=== PATIENT | male | born 1965 | race Caucasian/White ===

== ENCOUNTER 2017-10-31 09:37 | Day surgery (SDC) | payer MEDICARE ==
[2017-10-29 10:11] VITALS: BMI 30.8
[~2017-10-31 09:37] MED LIST: LACTATED RINGERS 1,000 ML IV SCH; LIDOCAINE 1% 20 ML VIAL (10MG/ML) FOR IV START INTRADERMA PRN; MIDAZOLAM 2 MG/2 ML VIAL IV PRN
[2017-10-31 10:00] VITALS: TEMP 98.3
[2017-10-31] MEDS ORDERED: LIDOCAINE 1% 20 ML VIAL (10MG/ML) FOR IV START INTRADERMA ONE (10:06)
[2017-10-31] MEDS ORDERED: PROPOFOL 10 MG/ML 20 ML VIAL IV ONE (11:16)
[2017-10-31] MEDS ORDERED: LIDOCAINE 1% INJ 10MG/ML (20 ML MDV) ONE (11:16)
--- NOTE | 2017-10-31 11:25 | P.GSHP ---
History of Present Illness H&P Date: 10/31/17 Chief Complaint: Screening colonoscopy This is a 52-year-old male referred from Dr. Montiel. Patient presents today for screening colonoscopy. Past Medical History Past Medical History: GERD/Reflux, Hypertension Additional Past Medical History / Comment(s): Paraplegic History of Any Multi-Drug Resistant Organisms: None Reported Past Surgical History: Back Surgery, Cholecystectomy, Orthopedic Surgery Additional Past Surgical History / Comment(s): cayla shoulder surgury, COLONOSCOPY Past Anesthesia/Blood Transfusion Reactions: No Reported Reaction Additional Past Anesthesia/Blood Transfusion Reaction / Comment(s): 1984 blood transfusion-no reaction Smoking Status: Never smoker - Past Family History Father Family Medical History: Diabetes Mellitus, Hypertension Mother Family Medical History: Hypertension Medications and Allergies Home Medications Medication Instructions Recorded Confirmed Type Hydrochlorothiazide 25 mg PO DAILY 07/11/17 10/31/17 History Ibuprofen [Motrin] 200 - 400 mg PO Q6HR PRN 07/11/17 10/31/17 History Metoprolol Succinate [Toprol XL] 50 mg PO DAILY 07/11/17 10/31/17 History Cefuroxime Axetil [Ceftin] 500 mg PO BID #10 tab 07/14/17 10/31/17 Rx Multivitamin [Men's Multi-Vitamin] 1 tab PO DAILY 07/15/17 10/31/17 History HYDROcodone/APAP 5-325MG [[place] 1 tab PO Q6HR PRN #30 tab 07/16/17 10/31/17 Rx 5-325] Omeprazole 40 mg PO DAILY #30 capsule. 07/16/17 10/31/17 Rx Allergies Allergy/AdvReac Type Severity Reaction Status Date / Time sulfamethoxazole Allergy Rash/Hives Verified 10/29/17 10:07 [From Bactrim] trimethoprim [From Bactrim] Allergy Rash/Hives Verified 10/29/17 10:07 Surgical - Exam Vital Signs Temp Pulse Resp BP Pulse Ox 98.3 F 97 16 177/90 95 10/31/17 09:55 10/31/17 09:55 10/31/17 09:55 10/31/17 09:55 10/31/17 09:55 - General well developed, no distress - Eyes PERRL - ENT normal pinna - Neck no masses - Respiratory normal expansion - Cardiovascular Rhythm: regular - Abdomen Abdomen: soft - Neurologic Paraplegia Assessment and Plan Assessment: We'll perform screening colonoscopy.
[2017-10-31 11:42] VITALS: RESP 18
--- NOTE | 2017-10-31 11:42 | P.OP ---
Date of Procedure: 10/31/17 Preoperative Diagnosis: Screening colonoscopy Postoperative Diagnosis: Internal and external hemorrhoids Procedure(s) Performed: Colonoscopy Anesthesia: MAC Surgeon: Kenroy Barreto Pathology: none sent Condition: stable Disposition: PACU Description of Procedure: PROCEDURE: The patient was placed on the endoscopy table in the lateral position. Digital rectal examination was performed which revealed internal and external hemorrhoids. The prostate was symmetrical without nodules. Flexible colonoscope was then placed in the patient's anus and passed throughout the entire colon. The ileocecal valve was visualized. The cecum, ascending, transverse, descending and sigmoid colon were normal. The rectum was normal as well. There were no masses, polyps or diverticula noted in the entire colon. SUMMARY OF FINDINGS: Internal and external hemorrhoids, no evidence of colon polyps or diverticula..
[2017-10-31 11:57] VITALS: BP 155/90; PULSE 67
== END 2017-10-31 12:20 | disposition home or self-care (01) ==
LOC: ORWHC2ENDO 09:37
PROVIDERS: ATTEND Surgery
DX: Z12.11 Encounter for screening for malignant neoplasm of colon (principal); K64.4 Residual hemorrhoidal skin tags; Z86.010 Personal history of colon polyps; K64.8 Other hemorrhoids; K21.9 Gastro-esophageal reflux disease without esophagitis; I10 Essential (primary) hypertension; G82.20 Paraplegia, unspecified; Z79.2 Long term (current) use of antibiotics; Z79.899 Other long term (current) drug therapy; Z88.1 Allergy status to other antibiotic agents; Z88.2 Allergy status to sulfonamides
CPT/HCPCS: J2001; J2704; G0105; 45378

== ENCOUNTER 2019-04-21 18:00 | Observation (INO) | payer MEDICARE ==
[2019-04-21] MEDS ORDERED: SODIUM CHLORIDE 0.9% 1,000 ML IV STA (18:22)
--- NOTE | 2019-04-21 18:23 | ED ---
Male Urogenital HPI - General Chief complaint: Urogenital Stated complaint: kidney pain Time Seen by Provider: 04/21/19 18:09 Source: patient, RN notes reviewed, old records reviewed Mode of arrival: wheelchair - History of Present Illness Initial comments: This is a 54-year-old male today. This patient is today for evaluation regarding refills of his acute UTI acute and chronic UTI. Patient has a history of T10 paraplegic. Secondary trauma. Patient has not had recent urinary tract infection greater than a year. We does have multi resistance to multiple antibiotic resistance with multiple EpiPen about ALLERGIES. Patient has worsening abdominal pain, cloudy urine. Pain mildly in his lower back mostly in his anterior abdomen she will pubic area MD Complaint: dysuria (Cloudy urine) -: hour(s) Location: penis, abdomen (Suprapubic area) Radiation: none Severity: moderate Severity scale (1-10): 5 Quality: burning, dull Consistency: constant Improves with: none Worsens with: urination Reports: denies other symptoms - Related Data Home Medications Medication Instructions Recorded Confirmed Hydrochlorothiazide 25 mg PO DAILY 07/11/17 04/21/19 Ibuprofen [Motrin] 200 - 400 mg PO Q6HR PRN 07/11/17 04/21/19 Metoprolol Succinate [Toprol XL] 50 mg PO DAILY 07/11/17 04/21/19 Cholestyramine (with Sugar) 4 gm PO DAILY 04/21/19 04/21/19 [Cholestyramine Packet] Multivitamins, Thera [Multivitamin 1 tab PO DAILY 04/21/19 04/21/19 (formulary)] Psyllium Husk 100% [Metamucil 6 gm PO DAILY 04/21/19 04/21/19 Packet] Previous Rx's Medication Instructions Recorded Nitrofurantoin Monohyd/M-Cryst 100 mg PO Q12HR #14 cap 04/21/19 [Macrobid] Allergies Allergy/AdvReac Type Severity Reaction Status Date / Time acetaminophen [From Vicodin] Allergy Nausea Verified 04/21/19 19:14 sulfamethoxazole Allergy Rash/Hives Verified 04/21/19 19:14 [From Bactrim] trimethoprim [From Bactrim] Allergy Rash/Hives Verified 04/21/19 19:14 hydrocodone [From Vicodin] AdvReac Nausea Verified 04/21/19 19:14 Review of Systems ROS Statement: Those systems with pertinent positive or pertinent negative responses have been documented in the HPI. ROS Other: All systems not noted in ROS Statement are negative. Past Medical History Past Medical History: GERD/Reflux, Hypertension Additional Past Medical History / Comment(s): Paraplegic History of Any Multi-Drug Resistant Organisms: None Reported Past Surgical History: Back Surgery, Cholecystectomy, Orthopedic Surgery Additional Past Surgical History / Comment(s): cayla shoulder surgury, COLONOSCOPY Past Anesthesia/Blood Transfusion Reactions: No Reported Reaction Additional Past Anesthesia/Blood Transfusion Reaction / Comment(s): 1984 blood transfusion-no reaction Past Psychological History: Panic Disorder Smoking Status: Never smoker - Past Family History Father Family Medical History: Diabetes Mellitus, Hypertension Mother Family Medical History: Hypertension General Exam General appearance: alert, in no apparent distress Head exam: Present: atraumatic, normocephalic, normal inspection Eye exam: Present: normal appearance, PERRL, EOMI. Absent: scleral icterus, conjunctival injection, periorbital swelling ENT exam: Present: normal exam, mucous membranes moist Neck exam: Present: normal inspection. Absent: tenderness, meningismus, lymphadenopathy Respiratory exam: Present: normal lung sounds bilaterally. Absent: respiratory distress, wheezes, rales, rhonchi, stridor Cardiovascular Exam: Present: regular rate, normal rhythm, normal heart sounds. Absent: systolic murmur, diastolic murmur, rubs, gallop, clicks GI/Abdominal exam: Present: soft, normal bowel sounds. Absent: distended, tenderness, guarding, rebound, rigid Extremities exam: Present: normal inspection, full ROM, normal capillary refill. Absent: tenderness, pedal edema, joint swelling, calf tenderness Back exam: Present: normal inspection Neurological exam: Present: alert, oriented X3, CN II-XII intact Psychiatric exam: Present: normal affect, normal mood Skin exam: Present: warm, dry, intact, normal color. Absent: rash Course Vital Signs 04/21/19 04/21/19 18:05 19:36 Temperature 98.4 F 98 F Pulse Rate 84 67 Respiratory 16 18 Rate Blood Pressure 148/87 154/83 O2 Sat by Pulse 96 98 Oximetry - Reevaluation(s) Reevaluation #1: 04/21/19 18:38 Medical records reviewed Reevaluation #2: 04/21/19 19:49 Patient still having abdominal pain currently Medical Decision Making - Medical Decision Making 64 male the ER for evaluation does have positive urinary tract infection, patient will replace on outpatient antibiotics, patient to return to ER symptoms of fever worsen or bowel pain worsen or any other symptoms - Lab Data Result diagrams: 04/21/19 18:40 04/21/19 18:40 Lab Results 04/21/19 04/21/19 04/21/19 Range/Units 18:40 18:40 18:40 WBC 8.4 (3.8-10.6) k/uL RBC 5.31 (4.30-5.90) m/uL Hgb 16.2 (13.0-17.5) gm/dL Hct 47.9 (39.0-53.0) % MCV 90.2 (80.0-100.0) fL MCH 30.6 (25.0-35.0) pg MCHC 33.9 (31.0-37.0) g/dL RDW 12.9 (11.5-15.5) % Plt Count 272 (150-450) k/uL Neutrophils % 63 % Lymphocytes % 27 % Monocytes % 5 % Eosinophils % 3 % Basophils % 1 % Neutrophils # 5.2 (1.3-7.7) k/uL Lymphocytes # 2.2 (1.0-4.8) k/uL Monocytes # 0.4 (0-1.0) k/uL Eosinophils # 0.3 (0-0.7) k/uL Basophils # 0.1 (0-0.2) k/uL Sodium 138 (137-145) mmol/L Potassium 3.6 (3.5-5.1) mmol/L Chloride 99 (98-107) mmol/L Carbon Dioxide 30 (22-30) mmol/L Anion Gap 9 mmol/L BUN 13 (9-20) mg/dL Creatinine 0.91 (0.66-1.25) mg/dL Est GFR (CKD-EPI)AfAm >90 (>60 ml/min/1.73 sqM) Est GFR (CKD-EPI)NonAf >90 (>60 ml/min/1.73 sqM) Glucose 102 H (74-99) mg/dL Calcium 9.2 (8.4-10.2) mg/dL Phosphorus 3.2 (2.5-4.5) mg/dL Magnesium 2.0 (1.6-2.3) mg/dL Total Bilirubin 2.0 H (0.2-1.3) mg/dL AST 35 (17-59) U/L ALT 38 (21-72) U/L Alkaline Phosphatase 90 (38-126) U/L Total Protein 7.5 (6.3-8.2) g/dL Albumin 4.3 (3.5-5.0) g/dL Urine Color Yellow Urine Appearance Turbid (Clear) Urine pH 7.0 (5.0-8.0) Ur Specific [place] 1.017 (1.001-1.035) Urine Protein 1+ H (Negative) Urine Glucose (UA) Negative (Negative) Urine Ketones Negative (Negative) Urine Blood Trace H (Negative) Urine Nitrite Positive (Negative) Urine Bilirubin Negative (Negative) Urine Urobilinogen <2.0 (<2.0) mg/dL Ur Leukocyte Esterase Large H (Negative) Urine RBC 22 H (0-5) /hpf Urine WBC >182 H (0-5) /hpf Urine WBC Clumps Many H (None) /hpf Ur Squamous Epith Cells 8 H (0-4) /hpf Amorphous Sediment Occasional H (None) /hpf Urine Bacteria Many H (None) /hpf Disposition Clinical Impression: UTI (urinary tract infection), Paraplegia Disposition: HOME SELF-CARE Condition: Fair Instructions (If sedation given, give patient instructions): Urinary Tract Infection in Men (ED) Prescriptions: Nitrofurantoin Monohyd/M-Cryst [Macrobid] 100 mg PO Q12HR #14 cap Is patient prescribed a controlled substance at d/c from ED?: No Referrals: Guicho Krause DO [Primary Care Provider] - 1-2 days
[2019-04-21 19:03] LABS: Basophils # (A) 0.1 k/uL (0-0.2); Basophils % (A) 1 %; Eosinophils # (A) 0.3 k/uL (0-0.7); Eosinophils % (A) 3 %; HCT 47.9 % (39.0-53.0); HGB 16.2 gm/dL (13.0-17.5); Lymphocytes # (A) 2.2 k/uL (1.0-4.8); Lymphocytes % (A) 27 %; MCH 30.6 pg (25.0-35.0); MCHC 33.9 g/dL (31.0-37.0); MCV 90.2 fL (80.0-100.0); Monocytes # (A) 0.4 k/uL (0-1.0); Monocytes % (A) 5 %; Neutrophils # (A) 5.2 k/uL (1.3-7.7); Neutrophils % (A) 63 %; Platelet Count 272 k/uL (150-450); RBC 5.31 m/uL (4.30-5.90); RDW 12.9 % (11.5-15.5); WBC 8.4 k/uL (3.8-10.6)
[2019-04-21 19:07] LABS: Amorphous Sediment,Urine Occasional /hpf; Appearance,Urine Turbid (Clear); Bacteria,Urine Many /hpf; Bilirubin,Urine Negative (Negative); Blood,Urine Trace (Negative); Color,Urine Yellow; Glucose,Urine (UA) Negative (Negative); Ketones,Urine Negative (Negative); Leukocyte Esterase,Urine Large (Negative); Nitrite,Urine Positive (Negative); Protein,Urine 1+ (Negative); RBC,Urine 22 /hpf (0-5); Specific Gravity,Urine 1.017 (1.001-1.035); Squamous Epithelial Cell,Urine 8 /hpf (0-4); Urobilinogen,Urine <2.0 mg/dL (<2.0)
[2019-04-21 19:10] LABS: ALT 38 U/L (21-72); AST 35 U/L (17-59); African American GFR (CKD) >90 (>60 ml/min/1.73 sqM); Albumin 4.3 g/dL (3.5-5.0); Alkaline Phosphatase 90 U/L (38-126); Anion Gap 9 mmol/L; Blood Urea Nitrogen 13 mg/dL (9-20); Calcium 9.2 mg/dL (8.4-10.2); Carbon Dioxide 30 mmol/L (22-30); Chloride 99 mmol/L (98-107); Glucose 102 mg/dL (74-99); Phosphorus 3.2 mg/dL (2.5-4.5); Potassium 3.6 mmol/L (3.5-5.1); Sodium 138 mmol/L (137-145); Total Protein 7.5 g/dL (6.3-8.2)
[2019-04-21] MEDS ORDERED: KETOROLAC 30 MG/ML 1 ML VIAL IVP STA (19:47)
[2019-04-21] MEDS ORDERED: cefTRIAXone IN SWFI 1,000 MG/10 ML SYRINGE IVP STA (19:47)
[2019-04-21] MEDS ORDERED: NITROFURANTOIN MONOHYD/M-CRYST 100 MG CAP PO STA (19:49)
[2019-04-21] MEDS ORDERED: SODIUM CHLORIDE 0.9% 1,000 ML IV ONE (20:05)
[2019-04-21] MEDS ORDERED: MORPHINE SULFATE 4 MG/ML SYRINGE IVP STA (20:06)
--- NOTE | 2019-04-21 20:07 | ED ---
Medical Decision Making - Medical Decision Making 54 male the ER with UTI, patient states he is not want to be discharged off a couple being discharged in her going home as he has had multiple episodes of petechiae turning in the sepsis - Lab Data Result diagrams: 04/21/19 18:40 04/21/19 18:40 Lab Results 04/21/19 04/21/19 04/21/19 Range/Units 18:40 18:40 18:40 WBC 8.4 (3.8-10.6) k/uL RBC 5.31 (4.30-5.90) m/uL Hgb 16.2 (13.0-17.5) gm/dL Hct 47.9 (39.0-53.0) % MCV 90.2 (80.0-100.0) fL MCH 30.6 (25.0-35.0) pg MCHC 33.9 (31.0-37.0) g/dL RDW 12.9 (11.5-15.5) % Plt Count 272 (150-450) k/uL Neutrophils % 63 % Lymphocytes % 27 % Monocytes % 5 % Eosinophils % 3 % Basophils % 1 % Neutrophils # 5.2 (1.3-7.7) k/uL Lymphocytes # 2.2 (1.0-4.8) k/uL Monocytes # 0.4 (0-1.0) k/uL Eosinophils # 0.3 (0-0.7) k/uL Basophils # 0.1 (0-0.2) k/uL Sodium 138 (137-145) mmol/L Potassium 3.6 (3.5-5.1) mmol/L Chloride 99 (98-107) mmol/L Carbon Dioxide 30 (22-30) mmol/L Anion Gap 9 mmol/L BUN 13 (9-20) mg/dL Creatinine 0.91 (0.66-1.25) mg/dL Est GFR (CKD-EPI)AfAm >90 (>60 ml/min/1.73 sqM) Est GFR (CKD-EPI)NonAf >90 (>60 ml/min/1.73 sqM) Glucose 102 H (74-99) mg/dL Calcium 9.2 (8.4-10.2) mg/dL Phosphorus 3.2 (2.5-4.5) mg/dL Magnesium 2.0 (1.6-2.3) mg/dL Total Bilirubin 2.0 H (0.2-1.3) mg/dL AST 35 (17-59) U/L ALT 38 (21-72) U/L Alkaline Phosphatase 90 (38-126) U/L Total Protein 7.5 (6.3-8.2) g/dL Albumin 4.3 (3.5-5.0) g/dL Urine Color Yellow Urine Appearance Turbid (Clear) Urine pH 7.0 (5.0-8.0) Ur Specific [place] 1.017 (1.001-1.035) Urine Protein 1+ H (Negative) Urine Glucose (UA) Negative (Negative) Urine Ketones Negative (Negative) Urine Blood Trace H (Negative) Urine Nitrite Positive (Negative) Urine Bilirubin Negative (Negative) Urine Urobilinogen <2.0 (<2.0) mg/dL Ur Leukocyte Esterase Large H (Negative) Urine RBC 22 H (0-5) /hpf Urine WBC >182 H (0-5) /hpf Urine WBC Clumps Many H (None) /hpf Ur Squamous Epith Cells 8 H (0-4) /hpf Amorphous Sediment Occasional H (None) /hpf Urine Bacteria Many H (None) /hpf Disposition Clinical Impression: UTI (urinary tract infection), Paraplegia Disposition: ADMITTED IP TO THIS HOSP Condition: Fair Instructions (If sedation given, give patient instructions): Urinary Tract Infection in Men (ED) Prescriptions: Nitrofurantoin Monohyd/M-Cryst [Macrobid] 100 mg PO Q12HR #14 cap Referrals: Guicho Krause DO [Primary Care Provider] - 1-2 days
[2019-04-22] MEDS: MORPHINE SULFATE 4 MG/ML SYRINGE IVP PRN ×2 (02:52→07:06)
[2019-04-22] MEDS: HYDROmorphone 0.5 MG/0.5 ML SYRINGE IVP PRN ×3 (13:09→21:33)
[2019-04-22] MEDS ORDERED: IBUPROFEN 400 MG TAB PO PRN (14:08)
[2019-04-22] MEDS ORDERED: TEMAZEPAM 15 MG CAP PO PRN (14:09)
[2019-04-22] MEDS: HEPARIN SODIUM,PORCINE 5,000 UNIT/ML 1 ML VIAL SQ SCH ×2 (14:23→21:33)
[2019-04-22] MEDS: PSYLLIUM HUSK 100% 6 GM PACKET PO SCH (14:23)
[2019-04-22] MEDS: MULTIVITAMINS, THERA 1 EACH TAB PO SCH (14:23)
[2019-04-22] MEDS: CHOLESTYRAMINE (WITH SUGAR) 4 GM PACKET PO SCH (14:23)
[2019-04-22] MEDS: METOPROLOL SUCCINATE (ER) 50 MG TAB.ER.24H PO SCH (14:23)
[2019-04-22] MEDS: HYDROCHLOROTHIAZIDE 25 MG TAB PO SCH (14:23)
--- NOTE | 2019-04-22 15:13 | HP ---
HISTORY AND PHYSICAL DATE OF SERVICE: 04/22/2019 CHIEF COMPLAINT: UTI. HISTORY OF PRESENT ILLNESS: This is a 54-year-old gentleman with a past medical history of T10 paraplegia secondary to trauma, history of recurrent UTI, GERD, hypertension, history of cholecystectomy, history of panic disorder, being followed by Dr. Krause in the outpatient setting. Admitted with features of UTI. The patient is complaining of some back pain also, abdominal pain, and the urine was cloudy. Patient came to [facility], admitted for further evaluation and treatment. There is no history of fever or rigors. No history of headache, loss of conscious or seizures at this time. PAST MEDICAL HISTORY: History of GERD, hypertension, paraplegia, history of cholecystectomy, history of panic disorder. MEDICATIONS: Prior to admission include home medications are: 1. Psyllium 66 g daily. 2. Multivitamins 1 p.o. daily. 3. Toprol-XL 50 mg p.o. daily. 4. Motrin 200-400 mg q.6 p.r.n. 5. Hydrochlorothiazide 25 mg b.i.d. 6. Cholestyramine 4 g daily. 7. Macrobid 100 mg p.o. b.i.d. ALLERGIES: VICODIN and BACTRIM. FAMILY HISTORY: History of diabetes and hypertension in the family. SOCIAL HISTORY: History of occasional alcohol, no smoking. REVIEW OF SYSTEMS: ENT: No diminished hearing or diminished vision. CARDIOVASCULAR: No angina. RESPIRATION: No cough, hemoptysis. GI: No nausea and vomiting. : No dysuria. NERVOUS SYSTEM: No numbness or weakness. ALLERGY/IMMUNOLOGY: No asthma or hayfever. MUSCULOSKELETAL: As mentioned earlier. HEMATOLOGY/ONCOLOGY: No history of anemia. ENDOCRINE: No history of diabetes or hypothyroid. CONSTITUTIONAL: As mentioned earlier. DERMATOLOGY: Negative. PSYCHIATRY: As mentioned earlier. PHYSICAL EXAMINATION: Patient is alert and oriented x3. Pulse 68, blood pressure 160/76, respiration 20, temperature 97.4, pulse ox 98% on room air. HEENT: Conjunctivae normal. NECK: No jugular venous distension. CARDIOVASCULAR SYSTEM: S1, S2, muffled. RESPIRATION: Breath sounds diminished at the bases, no rhonchi, no crackles. ABDOMEN: Soft, nontender. Some discomfort noted. No mass palpable. Condom catheter present. NERVOUS SYSTEM: As mentioned earlier, T10 paraplegia with paraparesis with global weakness and wasting present. SKIN: No ulcer, rash, bleeding. JOINTS: No active arthropathy. LYMPHATICS: No lymph node enlargement in the neck or axillae. LABS: CBC within normal limits. Sodium 130, potassium 3.3. UA noted. ASSESSMENT: 1. Acute urinary tract infection present on admission. 2. Acute urinary tract infection related to paraplegia. 3. On condom catheter. 4. History of recurrent urinary tract infections. 5. D10 paraplegia history. 6. Hypertension. 7. Gastroesophageal reflux disease. 8. History of cholecystectomy. 9. History of back surgery. 10.History of panic disorder. 11.Obesity with body mass index of 33. RECOMMENDATION: This 54-year-old gentleman who presented with multiple complex medical issues, will monitor the patient closely, continue with the current management and symptomatic treatment. Otherwise, at this time continue broad-spectrum IV antibiotics. Patient had history of resistant UTI. Will obtain the urine culture, blood cultures, Infectious Disease evaluation. Guarded prognosis because of multiple complex medical issues. Further recommendations to follow. A copy of this will be forwarded to Dr. Krause who is the primary physician. MMODL / IJN: [id number] /
--- NOTE | 2019-04-22 23:18 | P.CONS ---
History of Present Illness - Reason for Consult Consult date: 04/22/19 Urinary tract infection Requesting physician: Gilbert Majano - Chief Complaint Super pubic pain cloudy urine x few days - History of Present Illness Patient is a 54-year-old male with past medical history significant for traumatic T10 level spinal paraplegia the patient during his current catheter as he did have incontinence of [facility] chief complaints of not feeling well generalized weakness did have some lower abdominal discomfort and cloudy urine with the symptom has been going on for last few days before he presented to the hospital patient did have some chills but denies high-grade fever denies any headache or uri symptoms no chest pain shortness of breath or cough no nausea no vomiting no problem pain and no diarrhea patient was evaluated by the physician on the patient has been afebrile white count was normal patient did have a positive ua he was started on rocephin has been admitted to the hospital infectious disease was consulted for further recommendation regarding antibiotic therapy Review of Systems Positive point has been mentioned in the HPI rest of the systems are negative Past Medical History Past Medical History: GERD/Reflux, Hypertension Additional Past Medical History / Comment(s): Paraplegic History of Any Multi-Drug Resistant Organisms: None Reported Past Surgical History: Back Surgery, Cholecystectomy, Orthopedic Surgery Additional Past Surgical History / Comment(s): cayla shoulder surgury, COLONOSCOPY,, [place] removal Past Anesthesia/Blood Transfusion Reactions: No Reported Reaction Additional Past Anesthesia/Blood Transfusion Reaction / Comm: 1984 blood cline sfusion-no reaction Past Psychological History: Panic Disorder Additional Psychological History / Comment(s): lives with spouse Smoking Status: Never smoker Past Alcohol Use History: Rare Past Drug Use History: None Reported - Past Family History Father Family Medical History: Diabetes Mellitus, Hypertension Mother Family Medical History: Hypertension Medications and Allergies Home Medications Medication Instructions Recorded Confirmed Type Hydrochlorothiazide 25 mg PO DAILY 07/11/17 04/21/19 History Ibuprofen [Motrin] 200 - 400 mg PO Q6HR PRN 07/11/17 04/21/19 History Metoprolol Succinate [Toprol XL] 50 mg PO DAILY 07/11/17 04/21/19 History Cholestyramine (with Sugar) 4 gm PO DAILY 04/21/19 04/21/19 History [Cholestyramine Packet] Multivitamins, Thera [Multivitamin 1 tab PO DAILY 04/21/19 04/21/19 History (formulary)] Nitrofurantoin Monohyd/M-Cryst 100 mg PO Q12HR #14 cap 04/21/19 Rx [Macrobid] Psyllium Husk 100% [Metamucil 6 gm PO DAILY 04/21/19 04/21/19 History Packet] Allergies Allergy/AdvReac Type Severity Reaction Status Date / Time acetaminophen [From Vicodin] Allergy Nausea Verified 04/21/19 19:14 sulfamethoxazole Allergy Rash/Hives Verified 04/21/19 19:14 [From Bactrim] trimethoprim [From Bactrim] Allergy Rash/Hives Verified 04/21/19 19:14 hydrocodone [From Vicodin] AdvReac Nausea Verified 04/21/19 19:14 Physical Exam Vitals: Vital Signs Temp Pulse Pulse Resp BP BP BP 04/22/19 04:53 97.4 F L 68 20 164/76 04/21/19 22:00 98.4 F 74 18 164/91 04/21/19 19:36 98 F 67 18 154/83 04/21/19 18:05 98.4 F 84 16 148/87 Pulse Ox 04/22/19 04:53 99 04/21/19 22:00 96 04/21/19 19:36 98 04/21/19 18:05 96 Intake and Output 04/21/19 04/22/19 04/22/19 22:59 06:59 14:59 Intake Total 200 Output Total 600 Balance -400 Intake: Oral 200 Output: Urine 600 Other: Voiding Method Indwelling Catheter # Bowel Movements 0 Weight 113.398 kg GENERAL DESCRIPTION: Middle-aged male lying in bed, no distress. No tachypnea or accessory muscle of respiration use. HEENT: Shows Pallor , no scleral icterus. Oral mucous membrane is dry. No pharyngeal erythema or thrush NECK: Trachea central, no thyromegaly. LUNGS: Unlabored breathing. Clear to auscultation anteriorly. No wheeze or crackle. HEART: S1, S2, regular rate and rhythm. No loud murmur ABDOMEN: Soft, no tenderness , guarding or rigidity, no organomegaly EXTREMITIES: No edema of feet. SKIN: No rash, no masses palpable. NEUROLOGICAL: The patient is awake, alert, oriented x3, mood and affect normal. Results CBC & Chem 7: 04/21/19 18:40 04/21/19 18:40 Labs: Abnormal Lab Results - Last 24 Hours (Table) 04/21/19 04/21/19 Range/Units 18:40 18:40 Glucose 102 H (74-99) mg/dL Total Bilirubin 2.0 H (0.2-1.3) mg/dL Urine Protein 1+ H (Negative) Urine Blood Trace H (Negative) Ur Leukocyte Esterase Large H (Negative) Urine RBC 22 H (0-5) /hpf Urine WBC >182 H (0-5) /hpf Urine WBC Clumps Many H (None) /hpf Ur Squamous Epith Cells 8 H (0-4) /hpf Amorphous Sediment Occasional H (None) /hpf Urine Bacteria Many H (None) /hpf Microbiology - Last 24 Hours (Table) 04/21/19 18:40 Urine Culture - Preliminary Urine,Voided Assessment and Plan Assessment: 1-patient presented to hospital with generalized weakness suprapubic discomfort cloudy urine and did have a positive UA likely representing symptomatic urinary tract infection likely from enteric gram-negative pathogen with no recent antibiotic exposure possibly sensitive and some such as E. coli Plan: 1-Rocephin 1 g IV piggyback daily 2-gentle IV fluid We will follow on clinical condition and cultures to further adjust medication if needed Thank you for this consultation will follow this patient with you Time with Patient: Greater than 30
[2019-04-23] MEDS: HYDROmorphone 0.5 MG/0.5 ML SYRINGE IVP PRN ×3 (01:58→23:33)
[2019-04-23] MEDS: HEPARIN SODIUM,PORCINE 5,000 UNIT/ML 1 ML VIAL SQ SCH ×2 (06:54→21:03)
[2019-04-23] MEDS: CHOLESTYRAMINE (WITH SUGAR) 4 GM PACKET PO SCH (06:54)
[2019-04-23] MEDS: HYDROCHLOROTHIAZIDE 25 MG TAB PO SCH (07:37)
[2019-04-23] MEDS: METOPROLOL SUCCINATE (ER) 50 MG TAB.ER.24H PO SCH (07:37)
[2019-04-23] MEDS: PSYLLIUM HUSK 100% 6 GM PACKET PO SCH (07:37)
[2019-04-23] MEDS: PANTOPRAZOLE 40 MG TABLET PO SCH (07:38)
[2019-04-23] MEDS: MULTIVITAMINS, THERA 1 EACH TAB PO SCH (07:38)
[2019-04-23 09:23] LABS: Basophils # (A) 0.1 k/uL (0-0.2); Basophils % (A) 1 %; Eosinophils # (A) 0.4 k/uL (0-0.7); Eosinophils % (A) 6 %; HCT 43.6 % (39.0-53.0); Lymphocytes # (A) 1.6 k/uL (1.0-4.8); Lymphocytes % (A) 22 %; MCH 28.8 pg (25.0-35.0); MCHC 32.1 g/dL (31.0-37.0); MCV 89.7 fL (80.0-100.0); Mean Platelet Volume 5.7; Monocytes # (A) 0.3 k/uL (0-1.0); Monocytes % (A) 4 %; Neutrophils # (A) 4.8 k/uL (1.3-7.7); Neutrophils % (A) 66 %; Platelet Count 226 k/uL (150-450); RBC 4.86 m/uL (4.30-5.90); RDW 13.1 % (11.5-15.5); WBC 7.3 k/uL (3.8-10.6)
[2019-04-23 09:28] LABS: African American GFR (CKD) >90 (>60 ml/min/1.73 sqM); Anion Gap 8 mmol/L; Blood Urea Nitrogen 11 mg/dL (9-20); Calcium 8.6 mg/dL (8.4-10.2); Carbon Dioxide 30 mmol/L (22-30); Chloride 101 mmol/L (98-107); Glucose 107 mg/dL (74-99); Sodium 139 mmol/L (137-145)
[2019-04-23 09:33] LABS: Potassium 4.4 mmol/L (3.5-5.1)
--- NOTE | 2019-04-23 23:48 | PN ---
PROGRESS NOTE DATE OF SERVICE: 04/23/2019. REASON FOR FOLLOWUP: Urinary tract infection. INTERVAL HISTORY: The patient is currently afebrile. The patient complaining of lower abdominal pain, seems to have improved. Did have slight nausea but no vomiting. No chest pain, shortness of breath or cough. PHYSICAL EXAMINATION: Blood pressure 155/82 with a pulse of 62, temperature 98. He is 98% on room air. General description is a middle-aged male lying in bed in no distress. Respiratory system: Unlabored breathing. Clear to auscultation anteriorly. Heart S1, S2. Regular rate and rhythm. Abdomen soft, no tenderness. LABS: BUN of 11, creatinine 0.86. Hemoglobin is 14, white count 7.3. Urine culture currently pending. Blood culture negative. DIAGNOSTIC IMPRESSION AND PLAN: Patient admitted to the hospital with lower abdominal pain, positive UA and concern for urinary tract infection. Currently covered with Rocephin and did have improvement, to continue while waiting for the culture to finalize. Continue supportive care. MMODL / IJN: [id number] /
[2019-04-24 07:53] LABS: African American GFR (CKD) >90 (>60 ml/min/1.73 sqM); Anion Gap 9 mmol/L; Blood Urea Nitrogen 10 mg/dL (9-20); Calcium 9.3 mg/dL (8.4-10.2); Carbon Dioxide 30 mmol/L (22-30); Chloride 100 mmol/L (98-107); Glucose 120 mg/dL (74-99); Potassium 3.9 mmol/L (3.5-5.1); Sodium 139 mmol/L (137-145)
[2019-04-24 08:04] LABS: Basophils # (A) 0.1 k/uL (0-0.2); Basophils % (A) 1 %; Eosinophils # (A) 0.5 k/uL (0-0.7); Eosinophils % (A) 6 %; HCT 43.7 % (39.0-53.0); HGB 15.3 gm/dL (13.0-17.5); Lymphocytes # (A) 2.2 k/uL (1.0-4.8); Lymphocytes % (A) 28 %; MCH 30.8 pg (25.0-35.0); MCV 88.1 fL (80.0-100.0); Mean Platelet Volume 5.3; Monocytes # (A) 0.5 k/uL (0-1.0); Monocytes % (A) 6 %; Neutrophils # (A) 4.6 k/uL (1.3-7.7); Neutrophils % (A) 58 %; Platelet Count 252 k/uL (150-450); RBC 4.96 m/uL (4.30-5.90); RDW 12.9 % (11.5-15.5)
[2019-04-24] MEDS: CHOLESTYRAMINE (WITH SUGAR) 4 GM PACKET PO SCH (08:57)
[2019-04-24] MEDS: METOPROLOL SUCCINATE (ER) 50 MG TAB.ER.24H PO SCH (08:57)
[2019-04-24] MEDS: HYDROCHLOROTHIAZIDE 25 MG TAB PO SCH (08:57)
[2019-04-24] MEDS: PANTOPRAZOLE 40 MG TABLET PO SCH (08:57)
[2019-04-24] MEDS: MULTIVITAMINS, THERA 1 EACH TAB PO SCH (08:58)
[2019-04-24] MEDS: HEPARIN SODIUM,PORCINE 5,000 UNIT/ML 1 ML VIAL SQ SCH (08:58)
[2019-04-24] MEDS: PSYLLIUM HUSK 100% 6 GM PACKET PO SCH (08:58)
[2019-04-24 13:49] VITALS: BP 163/104; PULSE 63; RESP 16; TEMP 98.3
--- NOTE | 2019-04-24 16:06 | P.PN ---
Subjective Progress Note Date: 04/23/19 Principal diagnosis: Acute urinary tract infection Patient is a 54-year-old male with a known history of T10 paraplegia secondary to trauma, history of recurrent UTI, GERD, hypertension, history of cholecystectomy, panic disorder who is being followed by Dr. Montenegro as an outpatient was admitted to hospital secondary to UTI. Patient is currently being continued on antibiotics in the form of ceftriaxone. ID has seen the patient. 04 23 2019 Patient denied any complaints of chest pain or shortness of breath. No fever no chills. Still complaining of lower abdominal pain. Urine culture showed no growth so far. Currently being continued on antibiotics in the form of ce ftriaxone. Awaiting final culture report and antibiotics recommendations. No nausea vomiting or diarrhea. No dizziness or lightheadedness. Current medications reviewed. Objective - Vital Signs Vital signs: Vital Signs Temp 96.4 F L 04/23/19 14:15 Pulse 64 04/23/19 14:15 Resp 14 04/23/19 14:15 BP 158/78 04/23/19 14:15 Pulse Ox 96 04/23/19 14:15 Intake & Output 04/23/19 04/23/19 04/24/19 06:59 18:59 06:59 Intake Total 540 Output Total 750 Balance -750 540 Intake: Oral 540 Output: Urine 750 Other: # Voids 1,300 # Bowel Movements 0 - Exam PHYSICAL EXAMINATION: Patient is lying in the bed comfortably, no acute distress, awake alert and oriented.. HEENT: Normocephalic. Neck is supple. Pupils reactive. Nostrils clear. Oral cavity is moist. Ears reveal no drainage. Neck reveals no JVD, carotid bruits, or thyromegaly. CHEST EXAMINATION: Trachea is central. Symmetrical expansion. Bibasilar diminished air entry. Lung cherry clear to auscultation and percussion. CARDIAC: Normal S1, S2 with no gallops. No murmurs ABDOMEN: Soft. Mild lower abdominal tenderness. No guarding no rigidity. Bowel sounds normal. No organomegaly. No abdominal bruits. Extremities: reveal no edema. No clubbing or cyanosis Neurologically awake, alert, oriented x3. Patient does have paraplegia Skin: No rash or skin lesions. Psychiatric: Coperative. Nonsuicidal Musculoskeletal: No joint swelling or deformity. \ - Labs CBC & Chem 7: 04/24/19 07:18 04/24/19 07:18 Labs: Abnormal Lab Results - Last 24 Hours (Table) 04/23/19 Range/Units 08:35 Glucose 107 H (74-99) mg/dL Microbiology - Last 24 Hours (Table) 04/21/19 18:40 Blood Culture - Preliminary Blood No Growth after 24 hours Assessment and Plan Assessment: Acute urinary tract infection Acute urinary tract infection related to paraplegia. Patient is able to void spontaneously. Recurrent urinary tract infections T 10 paraplegia history Hypertension GERD History of cholecystectomy History of back surgery Anxiety/panic disorder Obesity with BMI 33 Plan: Patient will be continued on antibiotics in the form of ceftriaxone. Follow up final culture reports. Continue the pain management and symptomatic treatment. ID is on board. Cultures have been negative so far. Further recommendations based on the clinical course. Prognosis is guarded with multiple medical problems and comorbid conditions. Time with Patient: Greater than 30
--- NOTE | 2019-04-24 17:04 | PN ---
PROGRESS NOTE DATE OF SERVICE: 04/24/2019. REASON FOR FOLLOWUP: Urinary tract infection. INTERVAL HISTORY: The patient is currently afebrile. Patient has been breathing comfortably. Denies having any chest pain. No cough. No nausea, no vomiting. No abdominal pain. No diarrhea. PHYSICAL EXAMINATION: Blood pressure 163/100 with a pulse of 63, temperature 98.3. He is 99% on room air. General description is a middle-aged male lying in bed in no distress. Respiratory system: Unlabored breathing. Clear to auscultation anteriorly. Heart S1, S2. Regular rate and rhythm. Abdomen soft, no tenderness. LABS: Culture have been negative so far. DIAGNOSTIC IMPRESSION AND PLAN: Patient admitted to the hospital with urinary symptoms, suprapubic pain positive with concern for urinary tract infection. Culture has been negative so far. Plan is to finish therapy with a short course of oral Ceftin. Prescription sent to the pharmacy. Close outpatient followup. MMODL / SHARONAN: [id number] / MTDD
--- NOTE | 2019-05-04 21:40 | P.DS ---
Providers Date of admission: 04/21/19 20:07 Expected date of discharge: 04/24/19 Attending physician: Gilbert Majano Consults: 04/22/19 14:08 Consult Physician Routine Consulting Provider: Alexei Anderson Consult Reason/Comments: uti Do you want consulting provider notified?: Yes Primary care physician: Guicho Krause Hospital Course: Discharge diagnosis Acute urinary tract infection Acute urinary tract infection related to paraplegia. Patient is able to void spontaneously. Recurrent urinary tract infections T 10 paraplegia history Hypertension GERD History of cholecystectomy History of back surgery Anxiety/panic disorder Obesity with BMI 33 Hospital course Patient is a 54-year-old male with a known history of T10 paraplegia secondary to trauma, history of recurrent UTI, GERD, hypertension, history of cholecystectomy, panic disorder who is being followed by Dr. Montenegro as an outpatient was admitted to hospital secondary to UTI. Patient is currently being continued on antibiotics in the form of ceftriaxone. ID has seen the patient. 04 23 2019 Patient denied any complaints of chest pain or shortness of breath. No fever no chills. Still complaining of lower abdominal pain. Urine culture showed no growth so far. Currently being continued on antibiotics in the form of ceftriaxone. Awaiting final culture report and antibiotics recommendations. No nausea vomiting or diarrhea. No dizziness or lightheadedness. 04/24/2019 Patient denied any complaints of chest pain or shortness of breath today. Able to ambulate. Patient will be continued on outpatient antibiotic course. No nausea vomiting or abdominal pain. Patient says that he feels that her. Patient has been afebrile. No other acute overnight issues. Urine culture showed no growth so far PHYSICAL EXAMINATION: Patient is lying in the bed comfortably, no acute distress, awake alert and oriented.. HEENT: Normocephalic. Neck is supple. Pupils reactive. Nostrils clear. Oral cavity is moist. Ears reveal no drainage. Neck reveals no JVD, carotid bruits, or thyromegaly. CHEST EXAMINATION: Trachea is central. Symmetrical expansion. Bibasilar diminished air entry. Lung cherry clear to auscultation and percussion. CARDIAC: Normal S1, S2 with no gallops. No murmurs ABDOMEN: Soft. Mild lower abdominal tenderness. No guarding no rigidity. Bowel sounds normal. No organomegaly. No abdominal bruits. Extremities: reveal no edema. No clubbing or cyanosis Neurologically awake, alert, oriented x3. Patient does have paraplegia Skin: No rash or skin lesions. Psychiatric: Coperative. Nonsuicidal Musculoskeletal: No joint swelling or deformity. \ Discharge vitals reviewed. Patient Condition at Discharge: Fair Plan - Discharge Summary Discharge Rx Participant: Yes New Discharge Prescriptions: New RX: Nitrofurantoin Monohyd/M-Cryst [Macrobid] 100 mg PO Q12HR #14 cap Continue RX: Ibuprofen [Motrin] 200 - 400 mg PO Q6HR PRN PRN Reason: Pain RX: Metoprolol Succinate [Toprol XL] 50 mg PO DAILY RX: Hydrochlorothiazide 25 mg PO DAILY RX: Psyllium Husk 100% [Metamucil Packet] 6 gm PO DAILY RX: Multivitamins, Thera [Multivitamin (formulary)] 1 tab PO DAILY RX: Cholestyramine (with Sugar) [Cholestyramine Packet] 4 gm PO DAILY Discharge Medication List RX: Hydrochlorothiazide 25 mg PO DAILY 07/11/17 [History] RX: Ibuprofen [Motrin] 200 - 400 mg PO Q6HR PRN 07/11/17 [History] RX: Metoprolol Succinate [Toprol XL] 50 mg PO DAILY 07/11/17 [History] RX: Cholestyramine (with Sugar) [Cholestyramine Packet] 4 gm PO DAILY 04/21/19 [History] RX: Multivitamins, Thera [Multivitamin (formulary)] 1 tab PO DAILY 04/21/19 [History] RX: Nitrofurantoin Monohyd/M-Cryst [Macrobid] 100 mg PO Q12HR #14 cap 04/21/19 [Rx] RX: Psyllium Husk 100% [Metamucil Packet] 6 gm PO DAILY 04/21/19 [History] Follow up Appointment(s)/Referral(s): Guicho Krause DO [Primary Care Provider] - 1-2 days Patient Instructions/Handouts: Urinary Tract Infection in Men (ED) Discharge Disposition: HOME SELF-CARE
== END 2019-04-24 16:33 | disposition home or self-care (01) ==
LOC: EC 18:00 → 4MS4W 20:07
PROVIDERS: ADMIT Hospitalist; ATTEND Hospitalist
DX: N39.0 Urinary tract infection, site not specified (principal); G82.20 Paraplegia, unspecified; S24.103S Unspecified injury at T7-T10 level of thoracic spinal cord, sequela; Z16.24 Resistance to multiple antibiotics; K21.9 Gastro-esophageal reflux disease without esophagitis; I10 Essential (primary) hypertension; F41.0 Panic disorder [episodic paroxysmal anxiety]; Z68.33 Body mass index [BMI] 33.0-33.9, adult; E66.9 Obesity, unspecified; F41.9 Anxiety disorder, unspecified; Z79.899 Other long term (current) drug therapy; Z88.1 Allergy status to other antibiotic agents; Z88.2 Allergy status to sulfonamides; Z88.5 Allergy status to narcotic agent; Z88.6 Allergy status to analgesic agent; Z90.49 Acquired absence of other specified parts of digestive tract; Z87.440 Personal history of urinary (tract) infections; Z83.3 Family history of diabetes mellitus; Z82.49 Family history of ischemic heart disease and other diseases of the circulatory system
CPT/HCPCS: 96376 ×3; 96361 ×3; 96365; 96366 ×2; 96372 ×2; 96375 ×2; 99285; 36415; 80053; 80048 ×2; 83735; 84100; 85025 ×3; 81001; 87040; 87086; G0378 ×4; J2270 ×2; J1644 ×2; J0696 ×4; J1885; J1170 ×2

== ENCOUNTER 2019-08-06 23:42 | Observation (INO) | payer MEDICARE ==
[2019-08-07] MEDS ORDERED: HYDROmorphone 0.5 MG/0.5 ML SYRINGE IVP STA ×2 (00:12→02:34)
[2019-08-07 00:21] LABS: Basophils # (A) 0.1 k/uL (0-0.2); Basophils % (A) 1 %; Eosinophils # (A) 0.6 k/uL (0-0.7); Eosinophils % (A) 5 %; Lymphocytes # (A) 2.1 k/uL (1.0-4.8); Lymphocytes % (A) 19 %; MCH 30.1 pg (25.0-35.0); MCHC 34.7 g/dL (31.0-37.0); MCV 86.6 fL (80.0-100.0); Mean Platelet Volume 6.8; Monocytes # (A) 0.6 k/uL (0-1.0); Monocytes % (A) 5 %; Neutrophils # (A) 7.6 k/uL (1.3-7.7); Neutrophils % (A) 68 %; Platelet Count 310 k/uL (150-450); RBC 5.31 m/uL (4.30-5.90); RDW 12.7 % (11.5-15.5); WBC 11.2 k/uL (3.8-10.6)
--- NOTE | 2019-08-07 00:25 | CT ---
EXAMINATION TYPE: CT brain massimoine wo con DATE OF EXAM: 08/07/2019 COMPARISON: None HISTORY: Fall CT DLP: 1722.10 mGycm Automated exposure control for dose reduction was used. Ventricles have normal size. There is no mass effect nor midline shift. There is no sign of intracran ial hemorrhage. Calvarium is intact. There is some straightening of the cervical spine. There is anterior spurring from C4 to C7 with larg e osteophytes. Posterior elements are intact. There is mild hypertrophic facet arthropathy. Skull bas e is intact. IMPRESSION: Negative CT scan of the brain. Spondylotic changes in the cervical spine. No fracture. No evidence of acute traumatic injury.
[2019-08-07 00:28] LABS: ALT 26 U/L (4-49); AST 37 U/L (17-59); African American GFR (CKD) >90 (>60 ml/min/1.73 sqM); Alkaline Phosphatase 87 U/L (38-126); Anion Gap 10 mmol/L; Blood Urea Nitrogen 15 mg/dL (9-20); Calcium 9.3 mg/dL (8.4-10.2); Carbon Dioxide 26 mmol/L (22-30); Chloride 100 mmol/L (98-107); Glucose 150 mg/dL (74-99); Non-African American GFR(CKD) >90 (>60 ml/min/1.73 sqM); Potassium 3.4 mmol/L (3.5-5.1); Sodium 136 mmol/L (137-145); Total Bilirubin 0.8 mg/dL (0.2-1.3); Total Protein 7.2 g/dL (6.3-8.2)
--- NOTE | 2019-08-07 00:33 | XR ---
EXAMINATION TYPE: XR pelvis AP view DATE OF EXAM: 08/07/2019 COMPARISON: 12/16/2012 HISTORY: Fall. Pain. TECHNIQUE: Single view FINDINGS: Pelvic ring is intact. There is narrowing of hip joint spaces. There is bilateral acetabula r spurring. I see no fracture. The sacroiliac joints show some osteosclerosis in joint space narrowin g. IMPRESSION: There is evidence of sacroiliitis. No fracture seen. Osteoarthritic changes in the hip noelle ints. Hip joint space narrowing has progressed compared to old exam. Sacroiliac joints unchanged.
--- NOTE | 2019-08-07 00:35 | XR ---
EXAMINATION TYPE: XR humerus LT DATE OF EXAM: 08/07/2019 COMPARISON: NONE HISTORY: Fall. Pain. TECHNIQUE: 3 views of the left humerus FINDINGS: I see no fracture nor dislocation. Shoulder joint and elbow joint appear anatomic. IMPRESSION: Negative left humerus exam. No fracture.
--- NOTE | 2019-08-07 00:39 | XR ---
EXAMINATION TYPE: XR chest 1V DATE OF EXAM: 08/07/2019 COMPARISON: July 15, 2017 History chest pain. FINDINGS: Heart and mediastinum are normal. Lungs are clear. Diaphragm is normal. Bony thorax appears intact. T here are chest leads. IMPRESSION: Normal chest.
[2019-08-07] MEDS ORDERED: HYDROmorphone 1 MG/ML 1 ML SYRINGE IVP STA (01:16)
[2019-08-07] MEDS ORDERED: DIPH,PERTUS(ACELL)TETVAC-LF 0.5 ML VIAL IM ONE (02:34)
[2019-08-07 04:22] LABS: Appearance,Urine Cloudy (Clear); Bacteria,Urine Occasional /hpf; Bilirubin,Urine Negative (Negative); Blood,Urine Negative (Negative); Color,Urine Yellow; Glucose,Urine (UA) Negative (Negative); Ketones,Urine Negative (Negative); Leukocyte Esterase,Urine Moderate (Negative); Mucus,Urine Rare /hpf; Nitrite,Urine Positive (Negative); Protein,Urine Negative (Negative); RBC,Urine <1 /hpf (0-5); Specific Gravity,Urine 1.011 (1.001-1.035); Urobilinogen,Urine <2.0 mg/dL (<2.0); WBC,Urine 29 /hpf (0-5)
[2019-08-07] MEDS ORDERED: ONDANSETRON 4 MG/2 ML VIAL IVP PRN (06:42)
[2019-08-07] MEDS ORDERED: NALOXONE 0.4 MG/ML 1 ML VIAL IV PRN (06:42)
[2019-08-07] MEDS ORDERED: IBUPROFEN 400 MG TAB PO PRN (06:44)
[2019-08-07] MEDS: HYDROmorphone 0.5 MG/0.5 ML SYRINGE IVP PRN ×4 (06:56→23:05)
[2019-08-07] MEDS: SODIUM CHLORIDE 0.9% 1,000 ML IV SCH (06:58)
--- NOTE | 2019-08-07 07:08 | ED ---
Fall HPI - General Chief Complaint: Fall Stated Complaint: Fall Time Seen by Provider: 08/06/19 23:56 Source: patient, EMS Mode of arrival: EMS Limitations: no limitations - History of Present Illness Initial Comments: This patient is a 54-year-old man brought by ambulance to be evaluated for a fall. The patient states that he had been passing by his wood stove and his clothing caught on it and pulled him backwards he fell backwards in his wheelchair and struck his head against the metal surface of the stove. The patient did have brief loss of consciousness. EMS was called and brings patient here for evaluation. He is complaining of pain in the occipital area. MD Complaint: fall -: minutes(s) Fall From: wheelchair When Fall Occurred: just prior to arrival Fall Witnessed: no Place Fall Occurred: home Loss of Consciousness: yes Prolonged Down Time?: no Symptoms Prior to Fall: none Location: head, neck Severity: moderate Quality: sharp Context: tripped/slipped Associated Symptoms: headache - Related Data Home Medications Medication Instructions Recorded Confirmed Hydrochlorothiazide 25 mg PO DAILY 07/11/17 08/07/19 Ibuprofen [Motrin] 200 - 400 mg PO Q6HR PRN 07/11/17 08/07/19 Metoprolol Succinate [Toprol XL] 50 mg PO DAILY 07/11/17 08/07/19 Cholestyramine (with Sugar) 4 gm PO DAILY 04/21/19 08/07/19 [Cholestyramine Packet] Psyllium Husk 100% [Metamucil 6 gm PO DAILY 04/21/19 08/07/19 Packet] Pseudoephedrine HCl [Sudafed] 30 mg PO Q4HR PRN 08/07/19 08/07/19 Allergies Allergy/AdvReac Type Severity Reaction Status Date / Time sulfamethoxazole Allergy Rash/Hives Verified 08/07/19 07:23 [From Bactrim] trimethoprim [From Bactrim] Allergy Rash/Hives Verified 08/07/19 07:23 acetaminophen [From Vicodin] AdvReac Nausea Verified 08/07/19 07:23 hydrocodone [From Vicodin] AdvReac Nausea Verified 08/07/19 07:23 Review of Systems ROS Statement: Those systems with pertinent positive or pertinent negative responses have been documented in the HPI. ROS Other: All systems not noted in ROS Statement are negative. Eyes: Denies: eye pain, vision change ENT: Denies: throat pain Respiratory: Denies: cough, dyspnea Cardiovascular: Denies: chest pain, palpitations Gastrointestinal: Reports: constipation. Denies: abdominal pain, vomiting, diarrhea Genitourinary: Denies: dysuria, hematuria Musculoskeletal: Denies: back pain Skin: Denies: rash Neurological: Reports: headache. Denies: weakness, numbness Past Medical History Past Medical History: GERD/Reflux, Hypertension Additional Past Medical History / Comment(s): Paraplegic History of Any Multi-Drug Resistant Organisms: None Reported Past Surgical History: Back Surgery, Cholecystectomy, Orthopedic Surgery Additional Past Surgical History / Comment(s): cayla shoulder surgury, COLONOSCOPY,, charlotte removal Past Anesthesia/Blood Transfusion Reactions: No Reported Reaction Additional Past Anesthesia/Blood Transfusion Reaction / Comment(s): 1984 blood transfusion-no reaction Past Psychological History: Panic Disorder Smoking Status: Never smoker Past Alcohol Use History: Rare Past Drug Use History: Marijuana - Past Family History Father Family Medical History: Diabetes Mellitus, Hypertension Mother Family Medical History: Hypertension General Exam General appearance: alert, in no apparent distress Head exam: Present: normocephalic, other (There is an abrasion near the base of the skull that is approximately 3 cm in length and 5 mm wide. No laceration.) Eye exam: Present: normal appearance, PERRL, EOMI. Absent: scleral icterus, conjunctival injection, nystagmus ENT exam: Present: normal oropharynx Neck exam: Present: normal inspection, full ROM. Absent: tenderness, meningismus Respiratory exam: Present: normal lung sounds bilaterally. Absent: respiratory distress, wheezes, rales, rhonchi, stridor Cardiovascular Exam: Present: regular rate, normal rhythm, normal heart sounds. Absent: systolic murmur, diastolic murmur, rubs, gallop GI/Abdominal exam: Present: soft. Absent: distended, tenderness, guarding, rebound, mass Extremities exam: Present: normal inspection, normal capillary refill Neurological exam: Present: alert Skin exam: Present: warm, dry, intact, normal color. Absent: rash Course Vital Signs 08/06/19 08/07/19 08/07/19 23:48 00:55 02:17 Temperature 98.8 F 98.6 F 98.4 F Pulse Rate 77 71 85 Respiratory 18 20 20 Rate Blood Pressure 173/83 135/85 115/80 O2 Sat by Pulse 98 97 97 Oximetry 08/07/19 08/07/19 08/07/19 02:47 04:00 05:41 Temperature 98.4 F Pulse Rate 66 71 70 Respiratory 18 16 18 Rate Blood Pressure 90/72 110/73 117/75 O2 Sat by Pulse 100 98 96 Oximetry 08/07/19 06:46 Temperature 98.7 F Pulse Rate 71 Respiratory 19 Rate Blood Pressure 133/76 O2 Sat by Pulse 97 Oximetry Medical Decision Making - Medical Decision Making Patient is 54-year-old man brought to have evaluation after he had fallen backward and will transfer his head against iron woodstove. His trauma workup is negative, however he is incidentally found to have fever and urinary tract and action. - Lab Data Result diagrams: 08/07/19 22:35 08/07/19 22:35 Lab Results 08/06/19 08/06/19 08/07/19 Range/Units 23:53 23:53 00:33 WBC 11.2 H (3.8-10.6) k/uL RBC 5.31 (4.30-5.90) m/uL Hgb 16.0 (13.0-17.5) gm/dL Hct 46.0 (39.0-53.0) % MCV 86.6 (80.0-100.0) fL MCH 30.1 (25.0-35.0) pg MCHC 34.7 (31.0-37.0) g/dL RDW 12.7 (11.5-15.5) % Plt Count 310 (150-450) k/uL Neutrophils % 68 % Lymphocytes % 19 % Monocytes % 5 % Eosinophils % 5 % Basophils % 1 % Neutrophils # 7.6 (1.3-7.7) k/uL Lymphocytes # 2.1 (1.0-4.8) k/uL Monocytes # 0.6 (0-1.0) k/uL Eosinophils # 0.6 (0-0.7) k/uL Basophils # 0.1 (0-0.2) k/uL Sodium 136 L (137-145) mmol/L Potassium 3.4 L (3.5-5.1) mmol/L Chloride 100 (98-107) mmol/L Carbon Dioxide 26 (22-30) mmol/L Anion Gap 10 mmol/L BUN 15 (9-20) mg/dL Creatinine 0.80 (0.66-1.25) mg/dL Est GFR (CKD-EPI)AfAm >90 (>60 ml/min/1.73 sqM) Est GFR (CKD-EPI)NonAf >90 (>60 ml/min/1.73 sqM) Glucose 150 H (74-99) mg/dL Calcium 9.3 (8.4-10.2) mg/dL Total Bilirubin 0.8 (0.2-1.3) mg/dL AST 37 (17-59) U/L ALT 26 (4-49) U/L Alkaline Phosphatase 87 (38-126) U/L Total Protein 7.2 (6.3-8.2) g/dL Albumin 4.0 (3.5-5.0) g/dL Urine Color Urine Appearance (Clear) Urine pH (5.0-8.0) Ur Specific [place] (1.001-1.035) Urine Protein (Negative) Urine Glucose (UA) (Negative) Urine Ketones (Negative) Urine Blood (Negative) Urine Nitrite (Negative) Urine Bilirubin (Negative) Urine Urobilinogen (<2.0) mg/dL Ur Leukocyte Esterase (Negative) Urine RBC (0-5) /hpf Urine WBC (0-5) /hpf Urine Bacteria (None) /hpf Urine Mucus (None) /hpf Influenza Type A RNA Not Detected (Not Detectd) Influenza Type B (PCR) Not Detected (Not Detectd) 08/07/19 Range/Units 03:54 WBC (3.8-10.6) k/uL RBC (4.30-5.90) m/uL Hgb (13.0-17.5) gm/dL Hct (39.0-53.0) % MCV (80.0-100.0) fL MCH (25.0-35.0) pg MCHC (31.0-37.0) g/dL RDW (11.5-15.5) % Plt Count (150-450) k/uL Neutrophils % % Lymphocytes % % Monocytes % % Eosinophils % % Basophils % % Neutrophils # (1.3-7.7) k/uL Lymphocytes # (1.0-4.8) k/uL Monocytes # (0-1.0) k/uL Eosinophils # (0-0.7) k/uL Basophils # (0-0.2) k/uL Sodium (137-145) mmol/L Potassium (3.5-5.1) mmol/L Chloride (98-107) mmol/L Carbon Dioxide (22-30) mmol/L Anion Gap mmol/L BUN (9-20) mg/dL Creatinine (0.66-1.25) mg/dL Est GFR (CKD-EPI)AfAm (>60 ml/min/1.73 sqM) Est GFR (CKD-EPI)NonAf (>60 ml/min/1.73 sqM) Glucose (74-99) mg/dL Calcium (8.4-10.2) mg/dL Total Bilirubin (0.2-1.3) mg/dL AST (17-59) U/L ALT (4-49) U/L Alkaline Phosphatase (38-126) U/L Total Protein (6.3-8.2) g/dL Albumin (3.5-5.0) g/dL Urine Color Yellow Urine Appearance Cloudy (Clear) Urine pH 6.0 (5.0-8.0) Ur Specific [place] 1.011 (1.001-1.035) Urine Protein Negative (Negative) Urine Glucose (UA) Negative (Negative) Urine Ketones Negative (Negative) Urine Blood Negative (Negative) Urine Nitrite Positive (Negative) Urine Bilirubin Negative (Negative) Urine Urobilinogen <2.0 (<2.0) mg/dL Ur Leukocyte Esterase Moderate H (Negative) Urine RBC <1 (0-5) /hpf Urine WBC 29 H (0-5) /hpf Urine Bacteria Occasional H (None) /hpf Urine Mucus Rare H (None) /hpf Influenza Type A RNA (Not Detectd) Influenza Type B (PCR) (Not Detectd) Disposition Clinical Impression: Fall, Urinary tract infection Disposition: ADMITTED IP TO THIS HOSP Condition: Fair Is patient prescribed a controlled substance at d/c from ED?: No
[2019-08-07] MEDS ORDERED: HEPARIN SODIUM,PORCINE 5,000 UNIT/ML 1 ML VIAL SQ SCH (08:00)
[2019-08-07] MEDS ORDERED: DIAZEPAM 2 MG TAB PO PRN (08:08)
[2019-08-07] MEDS ORDERED: MELATONIN 3 MG TABLET PO PRN (08:46)
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
[2019-08-07] MEDS ORDERED: FAMOTIDINE 20 MG TAB PO SCH (09:00)
[2019-08-07] MEDS: FLUTICASONE 50MCG/SPRAY NASAL 16GM EA NOSTRIL SCH (09:35)
[2019-08-07] MEDS: CHOLESTYRAMINE (WITH SUGAR) 4 GM PACKET PO SCH (09:36)
[2019-08-07] MEDS: METOPROLOL SUCCINATE (ER) 50 MG TAB.ER.24H PO SCH (09:36)
[2019-08-07] MEDS: HYDROCHLOROTHIAZIDE 25 MG TAB PO SCH (09:36)
[2019-08-07] MEDS: guaiFENesin 600 MG TABLET.ER PO SCH (09:36)
[2019-08-07] MEDS: LORATADINE 10 MG TAB PO SCH (09:36)
[2019-08-07] MEDS: MULTIVITAMINS, THERA 1 EACH TAB PO SCH (09:36)
[2019-08-07] MEDS: PSYLLIUM HUSK 100% 6 GM PACKET PO SCH (09:36)
[2019-08-07] MEDS: NEOMYCIN-BACITRACIN-POLY OINT 14 GM TUBE TOPICAL SCH ×2 (10:06→23:13)
[2019-08-07 23:13] LABS: HGB 15.6 gm/dL (13.0-17.5); MCH 30.5 pg (25.0-35.0); MCHC 34.5 g/dL (31.0-37.0); MCV 88.4 fL (80.0-100.0); Mean Platelet Volume 6.7; Platelet Count 259 k/uL (150-450); RBC 5.09 m/uL (4.30-5.90); WBC 8.2 k/uL (3.8-10.6)
[2019-08-07 23:25] VITALS: RESP 18
[2019-08-07 23:29] LABS: African American GFR (CKD) >90 (>60 ml/min/1.73 sqM); Anion Gap 8 mmol/L; Blood Urea Nitrogen 13 mg/dL (9-20); Calcium 9.1 mg/dL (8.4-10.2); Carbon Dioxide 30 mmol/L (22-30); Chloride 100 mmol/L (98-107); Glucose 153 mg/dL (74-99); Non-African American GFR(CKD) >90 (>60 ml/min/1.73 sqM); Potassium 3.7 mmol/L (3.5-5.1); Sodium 138 mmol/L (137-145)
[2019-08-08 05:47] VITALS: BP 151/82; PULSE 67; TEMP 98
[2019-08-08] MEDS: HYDROmorphone 0.5 MG/0.5 ML SYRINGE IVP PRN (05:55)
[2019-08-08] MEDS: SODIUM CHLORIDE 0.9% 1,000 ML IV SCH (08:07)
[2019-08-08] MEDS: PSYLLIUM HUSK 100% 6 GM PACKET PO SCH (08:09)
[2019-08-08] MEDS: FLUTICASONE 50MCG/SPRAY NASAL 16GM EA NOSTRIL SCH (08:09)
[2019-08-08] MEDS: CHOLESTYRAMINE (WITH SUGAR) 4 GM PACKET PO SCH (08:09)
[2019-08-08] MEDS: METOPROLOL SUCCINATE (ER) 50 MG TAB.ER.24H PO SCH (08:10)
[2019-08-08] MEDS: LORATADINE 10 MG TAB PO SCH (08:10)
[2019-08-08] MEDS: MULTIVITAMINS, THERA 1 EACH TAB PO SCH (08:10)
[2019-08-08] MEDS: guaiFENesin 600 MG TABLET.ER PO SCH (08:10)
[2019-08-08] MEDS: HYDROCHLOROTHIAZIDE 25 MG TAB PO SCH (08:10)
[2019-08-08] MEDS: NEOMYCIN-BACITRACIN-POLY OINT 14 GM TUBE TOPICAL SCH (08:10)
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
== END 2019-08-08 10:19 | disposition home or self-care (01) ==
LOC: EC 23:42 → 6NMEDSUR 08-07 06:53
PROVIDERS: ADMIT Family Medicine; ATTEND Family Medicine
DX: S06.9X1A Unspecified intracranial injury with loss of consciousness of 30 minutes or less, initial encounter (principal); T20.25XA Burn of second degree of scalp [any part], initial encounter; T23.222A Burn of second degree of single left finger (nail) except thumb, initial encounter; G82.22 Paraplegia, incomplete; S24.104S Unspecified injury at T11-T12 level of thoracic spinal cord, sequela; K21.9 Gastro-esophageal reflux disease without esophagitis; I10 Essential (primary) hypertension; F41.0 Panic disorder [episodic paroxysmal anxiety]; R82.71 Bacteriuria; N31.9 Neuromuscular dysfunction of bladder, unspecified; K59.2 Neurogenic bowel, not elsewhere classified; M79.602 Pain in left arm; Z23 Encounter for immunization; M47.812 Spondylosis without myelopathy or radiculopathy, cervical region; Z99.3 Dependence on wheelchair; X15.0XXA Contact with hot stove (kitchen), initial encounter; W18.39XS Other fall on same level, sequela; Z90.49 Acquired absence of other specified parts of digestive tract; Z83.3 Family history of diabetes mellitus; Z82.49 Family history of ischemic heart disease and other diseases of the circulatory system; Z79.1 Long term (current) use of non-steroidal anti-inflammatories (NSAID); Z79.899 Other long term (current) drug therapy; Z88.2 Allergy status to sulfonamides; Z88.5 Allergy status to narcotic agent
CPT/HCPCS: 96376 ×3; 51701; 96365; 96375; 99285; 36415; 80053; 80048; 85025; 85027; 81001; 87040; 87086; 87077; 87186; 87502; 72170; 73060; 71045; 72125; 70450; 90715; G0378 ×2; J0696 ×2; J1170 ×3

== ENCOUNTER 2020-06-14 15:04 | Emergency (ER) | payer MEDICARE ==
[2020-06-14 15:17] VITALS: TEMP 98.6
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
[2020-06-14] MEDS ORDERED: SODIUM CHLORIDE 0.9% 500 ML 500 ML IV STA (16:07)
[2020-06-14] MEDS ORDERED: METOPROLOL SUCCINATE (ER) 50 MG TAB.ER.24H PO STA (16:28)
[2020-06-14 16:32] LABS: Basophils # (A) 0.1 k/uL (0-0.2); Basophils % (A) 1 %; Eosinophils # (A) 0.2 k/uL (0-0.7); Eosinophils % (A) 3 %; HCT 45.6 % (39.0-53.0); Lymphocytes % (A) 24 %; MCH 30.3 pg (25.0-35.0); MCHC 35.1 g/dL (31.0-37.0); MCV 86.4 fL (80.0-100.0); Mean Platelet Volume 6.3; Monocytes # (A) 0.4 k/uL (0-1.0); Monocytes % (A) 5 %; Neutrophils # (A) 5.5 k/uL (1.3-7.7); Neutrophils % (A) 66 %; Platelet Count 259 k/uL (150-450); RBC 5.27 m/uL (4.30-5.90); WBC 8.3 k/uL (3.8-10.6)
[2020-06-14 16:39] LABS: Appearance,Urine Turbid (Clear); Bacteria,Urine Many /hpf; Bilirubin,Urine Negative (Negative); Blood,Urine Small (Negative); Color,Urine Yellow; Glucose,Urine (UA) Trace (Negative); Ketones,Urine Negative (Negative); Leukocyte Esterase,Urine Large (Negative); Nitrite,Urine Negative (Negative); Protein,Urine 1+ (Negative); RBC,Urine 23 /hpf (0-5); Specific Gravity,Urine 1.021 (1.001-1.035); Squamous Epithelial Cell,Urine 4 /hpf (0-4); Urobilinogen,Urine <2.0 mg/dL (<2.0); WBC,Urine >182 /hpf (0-5)
[2020-06-14 16:46] LABS: ALT 33 U/L (4-49); AST 39 U/L (17-59); African American GFR (CKD) >90 (>60 ml/min/1.73 sqM); Alkaline Phosphatase 87 U/L (38-126); Anion Gap 5 mmol/L; Blood Urea Nitrogen 18 mg/dL (9-20); Calcium 9.2 mg/dL (8.4-10.2); Carbon Dioxide 33 mmol/L (22-30); Chloride 100 mmol/L (98-107); Glucose 138 mg/dL (74-99); Non-African American GFR(CKD) >90 (>60 ml/min/1.73 sqM); Sodium 138 mmol/L (137-145); Total Bilirubin 1.1 mg/dL (0.2-1.3); Total Protein 7.2 g/dL (6.3-8.2)
[2020-06-14] MEDS ORDERED: cefTRIAXone IN SWFI 1,000 MG/10 ML SYRINGE IVP STA (16:55)
[2020-06-14 17:15] VITALS: BP 179/89; PULSE 86; RESP 16
== END 2020-06-14 17:14 | disposition home or self-care (01) ==
LOC: EC 15:04
DX: N39.0 Urinary tract infection, site not specified (principal); I10 Essential (primary) hypertension; G82.20 Paraplegia, unspecified; Z79.899 Other long term (current) drug therapy; Z88.2 Allergy status to sulfonamides; Z88.6 Allergy status to analgesic agent; Z88.1 Allergy status to other antibiotic agents; Z88.5 Allergy status to narcotic agent; Z98.890 Other specified postprocedural states; Z90.49 Acquired absence of other specified parts of digestive tract
CPT/HCPCS: 36415; 80053; 83605; 85025; 81001; 87086; 99284; 96374; 96361; J0696

== ENCOUNTER 2021-03-29 20:32 | Emergency (ER) | payer MEDICARE ==
[2021-03-29] MEDS ORDERED: ACETAMINOPHEN TAB 500 MG TAB PO STA (21:12)
[2021-03-29] MEDS ORDERED: SODIUM CHLORIDE 0.9% 1,000 ML IV STA (21:15)
--- NOTE | 2021-03-29 22:04 | XR ---
EXAMINATION TYPE: XR chest 1V portable DATE OF EXAM: 03/29/2021 COMPARISON: 08/07/2019 HISTORY: Pain. Fever TECHNIQUE: FINDINGS: There is no heart failure nor confluent pneumonic infiltrate. Costophrenic angles are clear . Bony thorax is intact. IMPRESSION: No active cardiopulmonary disease. No change.
[2021-03-29 22:21] LABS: Basophils # (A) 0.1 k/uL (0-0.2); Basophils % (A) 1 %; Eosinophils # (A) 0.3 k/uL (0-0.7); Eosinophils % (A) 4 %; HGB 16.2 gm/dL (13.0-17.5); Lymphocytes # (A) 0.7 k/uL (1.0-4.8); Lymphocytes % (A) 11 %; MCH 30.7 pg (25.0-35.0); MCHC 35.3 g/dL (31.0-37.0); MCV 86.9 fL (80.0-100.0); Mean Platelet Volume 6.6; Monocytes # (A) 0.4 k/uL (0-1.0); Monocytes % (A) 6 %; Neutrophils # (A) 5.1 k/uL (1.3-7.7); Neutrophils % (A) 76 %; Platelet Count 193 k/uL (150-450); RBC 5.29 m/uL (4.30-5.90); RDW 12.8 % (11.5-15.5); WBC 6.7 k/uL (3.8-10.6)
[2021-03-29 22:41] LABS: ALT 52 U/L (4-49); AST 60 U/L (17-59); African American GFR (CKD) >90 (>60 ml/min/1.73 sqM); Albumin 4.1 g/dL (3.5-5.0); Alkaline Phosphatase 88 U/L (38-126); Anion Gap 8 mmol/L; Blood Urea Nitrogen 15 mg/dL (9-20); C Reactive Protein 1.8 mg/dL (<1.0); Calcium 9.1 mg/dL (8.4-10.2); Carbon Dioxide 30 mmol/L (22-30); Chloride 99 mmol/L (98-107); Glucose 114 mg/dL (74-99); LDH 512 U/L (313-618); Magnesium 1.7 mg/dL (1.6-2.3); Non-African American GFR(CKD) 81 (>60 ml/min/1.73 sqM); Potassium 3.6 mmol/L (3.5-5.1); Sodium 137 mmol/L (137-145); Total Bilirubin 1.4 mg/dL (0.2-1.3); Total Protein 7.3 g/dL (6.3-8.2)
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
[2021-03-29] MEDS ORDERED: SODIUM CHLORIDE 0.9% 50 ML IVPB ONE (23:45)
[2021-03-30] MEDS ORDERED: CASIRIVIMAB/IMDEVIMAB (EUA) 1,200 MG in SODIUM CHLORIDE 0.9% 100 ML IVPB ONE ×2
[2021-03-30 00:55] VITALS: BP 173/100; PULSE 84; RESP 18; TEMP 98.4
== END 2021-03-30 02:13 | disposition home or self-care (01) ==
LOC: EC 20:32
DX: U07.1 COVID-19 (principal); I10 Essential (primary) hypertension; K21.9 Gastro-esophageal reflux disease without esophagitis; F12.90 Cannabis use, unspecified, uncomplicated; Z79.1 Long term (current) use of non-steroidal anti-inflammatories (NSAID); Z79.52 Long term (current) use of systemic steroids; Z79.899 Other long term (current) drug therapy; Z82.49 Family history of ischemic heart disease and other diseases of the circulatory system; Z83.3 Family history of diabetes mellitus; Z88.1 Allergy status to other antibiotic agents; Z88.2 Allergy status to sulfonamides; Z88.5 Allergy status to narcotic agent; Z90.49 Acquired absence of other specified parts of digestive tract
CPT/HCPCS: 36415; 80053; 83605; 83615; 83735; 84484; 85025; 86140; 87635; 71045; 99285; 96365; 96361 ×3; Q0243

== ENCOUNTER 2021-07-14 22:10 | Observation (INO) | payer MEDICARE ==
[2021-07-14] MEDS ORDERED: MORPHINE SULFATE 4 MG/ML SYRINGE IV STA (22:29)
[2021-07-14 22:34] LABS: Glucose,Whole Blood 166 mg/dL (75-99)
--- NOTE | 2021-07-14 22:55 | CT ---
EXAMINATION TYPE: CT brain cspine wo con DATE OF EXAM: 07/14/2021 COMPARISON: 08/07/2019 HISTORY: Fall with head and neck injury. CT DLP: 1786.30 mGycm Automated exposure control for dose reduction was used. Images of the brain and cervical spine obtained without contrast. Ventricles of normal size. There is no mass effect or midline shift. There is no sign of intracranial hemorrhage. There is normal aeration of the mastoid sinuses. Skull base is intact. There are some parietal scalp soft tissue swelling noted. There is some straightening of the cervical spine. There is anterior bridging osteophyte formation fr om C2 to C7 vertebra. There is degenerative disc space narrowing throughout the cervical spine. There is no compression fracture. Facet joints are intact. IMPRESSION: Multilevel cervical spondylotic changes with anterior osteophyte formation that appears increased com pared to last exam. No fracture. Negative CT scan of the brain. No change.
[2021-07-14] MEDS ORDERED: HYDROmorphone 1 MG/ML 1 ML SYRINGE IVP STA (22:56)
[2021-07-14] MEDS ORDERED: LIDOCAINE 1% INJ 10MG/ML (20 ML MDV) SQ ONE (22:56)
[2021-07-14] MEDS ORDERED: DIPH,PERTUS(ACELL)TETVAC-LF 0.5 ML VIAL IM ONE (22:56)
[2021-07-14 22:59] LABS: Basophils # (A) 0.1 k/uL (0-0.2); Basophils % (A) 1 %; Eosinophils # (A) 0.5 k/uL (0-0.7); Eosinophils % (A) 5 %; HGB 16.3 gm/dL (13.0-17.5); Lymphocytes # (A) 2.3 k/uL (1.0-4.8); Lymphocytes % (A) 23 %; MCV 88.2 fL (80.0-100.0); Mean Platelet Volume 6.6; Monocytes # (A) 0.6 k/uL (0-1.0); Monocytes % (A) 6 %; Neutrophils # (A) 6.5 k/uL (1.3-7.7); Neutrophils % (A) 65 %; Platelet Count 244 k/uL (150-450); RBC 5.44 m/uL (4.30-5.90); RDW 12.8 % (11.5-15.5)
--- NOTE | 2021-07-14 23:01 | XR ---
EXAMINATION TYPE: XR chest 1V portable DATE OF EXAM: 07/14/2021 COMPARISON: 03/29/2021 HISTORY: Syncope TECHNIQUE: Single view FINDINGS: There is no heart failure nor confluent pneumonic infiltrate. Costophrenic angles are clear . There are chest leads. Bony thorax appears intact. IMPRESSION: No active cardiopulmonary disease. No change.
[2021-07-14 23:13] LABS: ALT 45 U/L (4-49); AST 41 U/L (17-59); African American GFR (CKD) >90 (>60 ml/min/1.73 sqM); Albumin 4.1 g/dL (3.5-5.0); Alkaline Phosphatase 105 U/L (38-126); Anion Gap 11 mmol/L; Blood Urea Nitrogen 19 mg/dL (9-20); Calcium 9.2 mg/dL (8.4-10.2); Carbon Dioxide 27 mmol/L (22-30); Chloride 99 mmol/L (98-107); Glucose 174 mg/dL (74-99); Non-African American GFR(CKD) 82 (>60 ml/min/1.73 sqM); Potassium 4.1 mmol/L (3.5-5.1); Sodium 137 mmol/L (137-145); Total Bilirubin 1.2 mg/dL (0.2-1.3); Total Protein 7.2 g/dL (6.3-8.2)
[2021-07-14 23:22] LABS: Partial Thromboplastin Time 23.5 sec (22.0-30.0); Prothrombin Time 10.9 sec (9.0-12.0)
[2021-07-15] MEDS ORDERED: HYDROmorphone 1 MG/ML 1 ML SYRINGE IVP STA (01:17)
[2021-07-15] MEDS ORDERED: NALOXONE 0.4 MG/ML 1 ML VIAL IV PRN (02:13)
[2021-07-15] MEDS ORDERED: ACETAMINOPHEN TAB 325 MG TAB PO PRN (02:13)
[2021-07-15] MEDS: SODIUM CHLORIDE 0.9% 1,000 ML IV SCH ×2 (02:31→16:06)
[2021-07-15 03:50] LABS: Appearance,Urine Cloudy (Clear); Bacteria,Urine Many /hpf; Bilirubin,Urine Negative (Negative); Blood,Urine Small (Negative); Calcium Oxalate Crystals,Urine Moderate /hpf; Color,Urine Yellow; Glucose,Urine (UA) Negative (Negative); Ketones,Urine Trace (Negative); Leukocyte Esterase,Urine Large (Negative); Mucus,Urine Rare /hpf; Nitrite,Urine Negative (Negative); PH, Urine 5.5 (5.0-8.0); Protein,Urine 1+ (Negative); RBC,Urine 18 /hpf (0-5); Specific Gravity,Urine 1.019 (1.001-1.035); Squamous Epithelial Cell,Urine 4 /hpf (0-4); Urobilinogen,Urine <2.0 mg/dL (<2.0); WBC,Urine 151 /hpf (0-5)
[2021-07-15] MEDS ORDERED: IBUPROFEN 400 MG TAB PO STA (06:19)
[2021-07-15] MEDS ORDERED: HYDROcodone/APAP 5-325MG 1 EACH TAB PO STA (06:19)
[2021-07-15] MEDS ORDERED: LABETALOL 5 MG/ML VIAL MDV IVP STA (06:43)
[2021-07-15] MEDS ORDERED: LORazepam 2 MG/ML INJ IV STA (06:43)
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
[2021-07-15] MEDS: hydroCHLOROthiazide 25 MG TAB PO SCH (11:32)
[2021-07-15] MEDS: FAMOTIDINE 20 MG TAB PO SCH ×2 (11:32→20:34)
[2021-07-15] MEDS: METOPROLOL SUCCINATE (ER) 50 MG TAB.ER.24H PO SCH (11:32)
[2021-07-15] MEDS: HEPARIN SODIUM,PORCINE/PF 5,000 UNIT/0.5 ML SYRINGE SQ SCH ×3 (11:32→23:49)
[2021-07-15] MEDS: HYDROcodone/APAP 7.5-325MG 1 EACH TAB PO PRN ×2 (16:06→21:42)
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
--- NOTE | 2021-07-16 07:46 | P.DS ---
Providers Date of admission: 07/15/21 02:14 Attending physician: Antonia Ojeda DO Consults: 07/15/21 11:10 Consult Physician Routine Consulting Provider: Alberto Guerrero Consult Reason/Comments: loss of consciousness Do you want consulting provider notified?: Yes 07/15/21 13:01 Consult Physician Routine Consulting Provider: Anamaria Rosas Consult Reason/Comments: Hypertension Do you want consulting provider notified?: Yes Primary care physician: Guicho Krause Hospital Course: 56-year-old male presented to the emergency department after a fall from his wheelchair. He did have loss of consciousness. Workup was negative for any acute intracranial abnormality or acute traumatic abnormality within the neck. Initially, patient was cleared for discharge by the emergency physician, however patient requested admission. Patient was evaluated by neurology during admission and was cleared from a neurologic standpoint. If continued loss of consciousness, recommendation from neurology is to obtain an outpatient EEG. From the trauma surgery standpoint, patient has no additional injuries. Medicine was consulted for hypertension, however no note is in the chart at this point. Patient is surgically and neurologically stable for discharge. Due to the COVID-19 pandemic and significant strain on the hospital with significant bed holds in the emergency department, patient has not obtained a room in the past 48 hours. He will be discharged from his hold in the emergency department. He is to follow with his primary care physician. Return to the emergency department should he have any additional issues. Patient is agreeable with this and is eager to go home. Patient Condition at Discharge: Fair Plan - Discharge Summary New Discharge Prescriptions: New HYDROcodone/APAP 7.5-325MG [[place] 7.5-325] 1 each PO Q6HR PRN #15 tab PRN Reason: Moderate Pain Continue Ibuprofen [Motrin] 600 mg PO Q8H PRN PRN Reason: Pain Metoprolol Succinate [Toprol XL] 50 mg PO DAILY hydroCHLOROthiazide 25 mg PO DAILY #30 tab Discharge Medication List Ibuprofen [Motrin] 600 mg PO Q8H PRN 07/11/17 [History] Metoprolol Succinate [Toprol XL] 50 mg PO DAILY 07/11/17 [History] hydroCHLOROthiazide 25 mg PO DAILY #30 tab 08/08/19 [Rx] HYDROcodone/APAP 7.5-325MG [[place] 7.5-325] 1 each PO Q6HR PRN #15 tab 07/16/21 [Rx] Follow up Appointment(s)/Referral(s): Guicho Krause DO [Primary Care Provider] - 1-2 Days Patient Instructions/Handouts: Fall Prevention (DC) Discharge Disposition: HOME SELF-CARE
[2021-07-16] MEDS: METOPROLOL SUCCINATE (ER) 50 MG TAB.ER.24H PO SCH (08:03)
[2021-07-16] MEDS: HYDROcodone/APAP 7.5-325MG 1 EACH TAB PO PRN (08:03)
[2021-07-16] MEDS: FAMOTIDINE 20 MG TAB PO SCH (08:03)
[2021-07-16] MEDS: HEPARIN SODIUM,PORCINE/PF 5,000 UNIT/0.5 ML SYRINGE SQ SCH (08:04)
[2021-07-16] MEDS: hydroCHLOROthiazide 25 MG TAB PO SCH (08:09)
[2021-07-16] MEDS: SODIUM CHLORIDE 0.9% 1,000 ML IV SCH (08:10)
[2021-07-16 08:19] VITALS: BP 181/98; PULSE 94; RESP 20; TEMP 96.9
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
== END 2021-07-16 11:50 | disposition home or self-care (01) ==
LOC: EC 22:10 → 5NMEDONC 07-15 02:14
PROVIDERS: ADMIT Surgery; ATTEND Surgery
DX: R55 Syncope and collapse (principal); S09.90XA Unspecified injury of head, initial encounter; W05.0XXA Fall from non-moving wheelchair, initial encounter; G82.21 Paraplegia, complete; K21.9 Gastro-esophageal reflux disease without esophagitis; F41.0 Panic disorder [episodic paroxysmal anxiety]; Z20.822 Contact with and (suspected) exposure to COVID-19; I10 Essential (primary) hypertension; M25.78 Osteophyte, vertebrae; M47.812 Spondylosis without myelopathy or radiculopathy, cervical region; Z79.899 Other long term (current) drug therapy; Z88.2 Allergy status to sulfonamides; Z88.5 Allergy status to narcotic agent; Z88.6 Allergy status to analgesic agent; Z88.1 Allergy status to other antibiotic agents; Z99.3 Dependence on wheelchair; Z23 Encounter for immunization; Z90.49 Acquired absence of other specified parts of digestive tract; Z83.3 Family history of diabetes mellitus; Z82.49 Family history of ischemic heart disease and other diseases of the circulatory system; Z82.61 Family history of arthritis
CPT/HCPCS: 99285; 96361 ×2; 96376; 96372; 96374; 96375 ×2; 36415; 93005; 80053; 83735; 84484; 85025; 85610; 85730; 81001; 87635; 71045; 72125; 70450; 90715; 90471; G0378 ×2; J2060; J2270; J2001; J1170 ×2; J1644

== ENCOUNTER 2024-01-15 18:04 | Inpatient (IN) | payer MEDICARE ==
--- NOTE | 2024-01-15 18:25 | ED ---
General Adult HPI - General Stated complaint: Hypertension, Weakness Time Seen by Provider: 01/15/24 18:05 Source: patient, RN notes reviewed, old records reviewed - History of Present Illness Initial comments: Is a 58-year-old male who presents to the emergency department who has a past medical history significant for paraplegic at T10 level. Patient states this occurred 40 years ago. Patient comes in today complaining that for the last 3 days he has felt kind of shaky and jittery and as of today he feels as though his chest and biceps are weaker and sore. Patient states he was trying to pull sideways a utility vehicle and he made an attempt at doing this 2 times and he states he was quite stressful and he thought maybe that was what happened but then today he was unable to get out of his wheelchair which is never happened to him before. - Related Data Home Medications Medication Instructions Recorded Confirmed Ibuprofen [Motrin] 600 mg PO BID 07/11/17 01/15/24 Furosemide [Lasix] 20 mg PO BID 01/15/24 01/15/24 HYDROcodone/APAP 7.5-325MG [[place] 1 tab PO BID PRN 01/15/24 01/15/24 7.5-325] Triamcinolone 0.1% Cream [Kenalog 1 applic TOPICAL BID PRN 01/15/24 01/15/24 0.1% Cream] Allergies Allergy/AdvReac Type Severity Reaction Status Date / Time ciprofloxacin [From Cipro] Allergy Rash/Hives Verified 01/15/24 19:42 sulfamethoxazole Allergy Rash/Hives Verified 01/15/24 19:42 [From Bactrim] trimethoprim [From Bactrim] Allergy Rash/Hives Verified 01/15/24 19:42 acetaminophen [From Vicodin] AdvReac Nausea Verified 01/15/24 19:42 hydrocodone [From Vicodin] AdvReac Nausea Verified 01/15/24 19:42 Review of Systems ROS Statement: Those systems with pertinent positive or pertinent negative responses have been documented in the HPI. ROS Other: All systems not noted in ROS Statement are negative. 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, covid - antibody infusion History of Any Multi-Drug Resistant Organisms: None Reported Past Surgical History: Back Surgery, Cholecystectomy, Orthopedic Surgery Additional Past Surgical History / Comment(s): cayla shoulder surgury, COLONOSCOPY, charlotte removal Past Anesthesia/Blood Transfusion Reactions: No Reported Reaction Additional Past Anesthesia/Blood Transfusion Reaction / Comment(s): 1984 blood transfusion-no reaction Past Psychological History: Panic Disorder Smoking Status: Never smoker Past Alcohol Use History: Occasional, Rare Past Drug Use History: Marijuana - Past Family History Father Family Medical History: Diabetes Mellitus, Hypertension Mother Family Medical History: Hypertension Additional Family Medical History / Comment(s): Rheumatoid General Exam - General Exam Comments Initial Comments: GENERAL: Patient is well-developed and well-nourished. Patient is nontoxic and well- hydrated and is in no acute distress. ENT: Neck is soft and supple. No significant lymphadenopathy is noted. Oropharynx is clear. Moist mucous membranes. Neck has full range of motion without eliciting any pain. EYES: The sclera were anicteric and conjunctiva were pink and moist. Extraocular movements were intact and pupils were equal round and reactive to light. Eyelids were unremarkable. PULMONARY: Unlabored respirations. Good breath sounds bilaterally. No audible rales rhonchi or wheezing was noted. CARDIOVASCULAR: There is a regular rate and rhythm without any murmurs gallops or rubs. Palpat ing pectoralis muscle and biceps are tender to touch ABDOMEN: Soft and nontender with normal bowel sounds. SKIN: Skin is clear with no lesions or rashes and otherwise unremarkable. NEUROLOGIC: Patient is alert and oriented x3. Cranial nerves II through XII are grossly intact. Paralyzed from the waist down MUSCULOSKELETAL: There is no movement of his lower extremities LYMPHATICS: No significant lymphadenopathy is noted PSYCHIATRIC: Normal psychiatric evaluation. Course Vital Signs 01/15/24 01/15/24 01/15/24 18:12 18:30 18:59 Pulse Rate 101 H 90 90 Respiratory 18 18 18 Rate Blood Pressure 190/113 190/113 146/96 O2 Sat by Pulse 96 98 Oximetry Medical Decision Making - Medical Decision Making EKG is interpreted by myself read EKG shows a sinus rhythm at 95 bpm MA interval is 187 QRS is 91 QT interval 368 QTc is 421. Patient EKG shows no ST segment elevation or depression. Was pt. sent in by a medical professional or institution (, PA, PALEOBOTANIST, urgent care, hospital, or custodial...) When possible be specific @ -No Did you speak to anyone other than the patient for history (EMS, parent, family, police, friend...)? What history was obtained from this source @ -No Did you review nursing and triage notes (agree or disagree)? Why? @ -I reviewed and agree with nursing and triage notes Were old charts reviewed (outside hosp., previous admission, EMS record, old EKG, old radiological studies, urgent care reports/EKG's, custodial records)? Report findings @ -No old charts were reviewed Differential Diagnosis? @ -Differential Weakness: Hypoglycemia, shock, sepsis, hyponatremia, anemia, infection, VA, ETOH, adverse medicine reaction, overdose, stroke, rhabdomyolysis this is not meant to be an all-inclusive list. EKG interpreted by me (3pts min.). @ -As above X-rays interpreted by me (1pt min.). @ -None done CT interpreted by me (1pt min.). @ -None done U/S interpreted by me (1pt. min.). @ -None done What testing was considered but not performed or refused? (CT, X-rays, U/S, labs)? Why? @ -None What meds were considered but not given or refused? Why? @ -None Did you discuss the management of the patient with other professionals (prof milka i.e. , PA, PALEOBOTANIST, lab, RT, psych nurse, social insurance administrator, trucksmith, teacher, agricultural loan officer, case planner)? Give summary @ -[facility] and [facility] agreed to admit the patient Was smoking cessation discussed for >3mins.? @ -No Was critical care preformed (if so, how long)? @ -No Were there social determinants of health that impacted care today? How? (Homelessness, low income, unemployed, alcoholism, drug addiction, transportation, low edu. Level, literacy, decrease access to med. care, snf, rehab)? @ -No Was there de-escalation of care discussed even if they declined (Discuss DNR or withdrawal of care, Hospice)? DNR status @ -No What co-morbidities impacted this encounter? (DM, HTN, Smoking, COPD, CAD, Cancer, CVA, ARF, Chemo, Hep., AIDS, mental health diagnosis, sleep apnea, morbid obesity)? @ -None Was patient admitted / discharged? Hospital course, mention meds given and route, prescriptions, significant lab abnormalities, going to OR and other pertinent info. @ -Patient was too weak to transfer and did request being admitted so because the patient had low magnesium low potassium and elevated CPK along with urinary tract infection patient will be [facility]. I wrote admitting orders Undiagnosed new problem with uncertain prognosis? @ -No Drug Therapy requiring intensive monitoring for toxicity (Heparin, Nitro, Ins ulin, Cardizem)? @ -No Were any procedures done? @ -No Diagnosis/symptom? @ -Urinary tract Acute, or Chronic, or Acute on Chronic? @ -Acute Uncomplicated (without systemic symptoms) or Complicated (systemic symptoms)? @ -Comp Side effects of treatment? @ -No Exacerbation, Progression, or Severe Exacerbation? @ -No Poses a threat to life or bodily function? How? (Chest pain, [place], VA, pneumonia, PE, COPD, DKA, ARF, appy, cholecystitis, CVA, Diverticulitis, Homicidal, Suicidal, threat to staff... and all critical care pts) @ -Yes this could lead to sepsis and endorgan dysfunction Diagnosis/symptom? @ -Hypomagnesemia Acute, or Chronic, or Acute on Chronic? @ -Acute Uncomplicated (without systemic symptoms) or Complicated (systemic symptoms)? @ -Complicated Side effects of treatment? @ -None Exacerbation, Progression, or Severe Exacerbation] @ -No Poses a threat to life or bodily function? @ -No Diagnosis/symptom? @ -Hypokalemia Acute, or Chronic, or Acute on Chronic? @ -Acute Uncomplicated (without systemic symptoms) or Complicated (systemic symptoms)? @ -Complicated Side effects of treatment? @ -None Exacerbation, Progression, or Severe Exacerbation] @ -No Poses a threat to life or bodily function? @ -No - Lab Data Result diagrams: 01/15/24 18:25 01/15/24 18:25 Lab Results 01/15/24 01/15/24 01/15/24 Range/Units 18:25 18:25 18:25 WBC 11.7 H (3.8-10.6) k/uL RBC 5.13 (4.30-5.90) m/uL Hgb 15.4 (13.0-17.5) gm/dL Hct 44.5 (39.0-53.0) % MCV 86.8 (80.0-100.0) fL MCH 30.0 (25.0-35.0) pg MCHC 34.5 (31.0-37.0) g/dL RDW 13.7 (11.5-15.5) % Plt Count 264 (150-450) k/uL MPV 7.1 Neutrophils % 72 % Lymphocytes % 18 % Monocytes % 4 % Eosinophils % 5 % Basophils % 1 % Neutrophils # 8.4 H (1.3-7.7) k/uL Lymphocytes # 2.2 (1.0-4.8) k/uL Monocytes # 0.5 (0-1.0) k/uL Eosinophils # 0.5 (0-0.7) k/uL Basophils # 0.1 (0-0.2) k/uL Sodium 138 (137-145) mmol/L Potassium 2.6 L* (3.5-5.1) mmol/L Chloride 96 L (98-107) mmol/L Carbon Dioxide 33 H (22-30) mmol/L Anion Gap 9 mmol/L BUN 11 (9-20) mg/dL Creatinine 0.68 (0.66-1.25) mg/dL Est GFR (CKD-EPI)AfAm >90 (>60 ml/min/1.73 sqM) Est GFR (CKD-EPI)NonAf >90 (>60 ml/min/1.73 sqM) Glucose 333 H (74-99) mg/dL Plasma Lactic Acid Joel (0.7-2.0) mmol/L Calcium 8.5 (8.4-10.2) mg/dL Magnesium 1.4 L (1.6-2.3) mg/dL Total Bilirubin 2.2 H (0.2-1.3) mg/dL AST 50 (17-59) U/L ALT 40 (4-49) U/L Alkaline Phosphatase 127 H (38-126) U/L Creatine Kinase 475 H (55-170) U/L Troponin I (0.000-0.034) ng/mL Total Protein 6.7 (6.3-8.2) g/dL Albumin 4.1 (3.5-5.0) g/dL Urine Color Colorless Urine Appearance Cloudy (Clear) Urine pH 6.0 (5.0-8.0) Ur Specific [place] 1.020 (1.001-1.035) Urine Protein Negative (Negative) Urine Glucose (UA) 4+ H (Negative) Urine Ketones Negative (Negative) Urine Blood Small H (Negative) Urine Nitrite Negative (Negative) Urine Bilirubin Negative (Negative) Urine Urobilinogen <2.0 (<2.0) mg/dL Ur Leukocyte Esterase Large H (Negative) Urine RBC 11 H (0-5) /hpf Urine WBC >182 H (0-5) /hpf Ur Squamous Epith Cells 14 H (0-4) /hpf Urine Bacteria Many H (None) /hpf Urine Mucus Rare H (None) /hpf 01/15/24 01/15/24 Range/Units 18:25 18:25 WBC (3.8-10.6) k/uL RBC (4.30-5.90) m/uL Hgb (13.0-17.5) gm/dL Hct (39.0-53.0) % MCV (80.0-100.0) fL MCH (25.0-35.0) pg MCHC (31.0-37.0) g/dL RDW (11.5-15.5) % Plt Count (150-450) k/uL MPV Neutrophils % % Lymphocytes % % Monocytes % % Eosinophils % % Basophils % % Neutrophils # (1.3-7.7) k/uL Lymphocytes # (1.0-4.8) k/uL Monocytes # (0-1.0) k/uL Eosinophils # (0-0.7) k/uL Basophils # (0-0.2) k/uL Sodium (137-145) mmol/L Potassium (3.5-5.1) mmol/L Chloride (98-107) mmol/L Carbon Dioxide (22-30) mmol/L Anion Gap mmol/L BUN (9-20) mg/dL Creatinine (0.66-1.25) mg/dL Est GFR (CKD-EPI)AfAm (>60 ml/min/1.73 sqM) Est GFR (CKD-EPI)NonAf (>60 ml/min/1.73 sqM) Glucose (74-99) mg/dL Plasma Lactic Acid Joel 3.1 H* (0.7-2.0) mmol/L Calcium (8.4-10.2) mg/dL Magnesium (1.6-2.3) mg/dL Total Bilirubin (0.2-1.3) mg/dL AST (17-59) U/L ALT (4-49) U/L Alkaline Phosphatase (38-126) U/L Creatine Kinase (55-170) U/L Troponin I 0.012 (0.000-0.034) ng/mL Total Protein (6.3-8.2) g/dL Albumin (3.5-5.0) g/dL Urine Color Urine Appearance (Clear) Urine pH (5.0-8.0) Ur Specific [place] (1.001-1.035) Urine Protein (Negative) Urine Glucose (UA) (Negative) Urine Ketones (Negative) Urine Blood (Negative) Urine Nitrite (Negative) Urine Bilirubin (Negative) Urine Urobilinogen (<2.0) mg/dL Ur Leukocyte Esterase (Negative) Urine RBC (0-5) /hpf Urine WBC (0-5) /hpf Ur Squamous Epith Cells (0-4) /hpf Urine Bacteria (None) /hpf Urine Mucus (None) /hpf Disposition Clinical Impression: Urinary tract infection, Hypomagnesemia, Hypokalemia Disposition: ADMITTED IP TO THIS HOSP Referrals: Guicho Krause DO [Primary Care Provider] - 1-2 days Time of Disposition: 20:30
[2024-01-15 18:40] LABS: Basophils # (A) 0.1 k/uL (0-0.2); Basophils % (A) 1 %; Eosinophils # (A) 0.5 k/uL (0-0.7); Eosinophils % (A) 5 %; HCT 44.5 % (39.0-53.0); HGB 15.4 gm/dL (13.0-17.5); Lymphocytes # (A) 2.2 k/uL (1.0-4.8); Lymphocytes % (A) 18 %; MCHC 34.5 g/dL (31.0-37.0); MCV 86.8 fL (80.0-100.0); Mean Platelet Volume 7.1; Monocytes # (A) 0.5 k/uL (0-1.0); Monocytes % (A) 4 %; Neutrophils # (A) 8.4 k/uL (1.3-7.7); Neutrophils % (A) 72 %; Platelet Count 264 k/uL (150-450); RBC 5.13 m/uL (4.30-5.90); RDW 13.7 % (11.5-15.5); WBC 11.7 k/uL (3.8-10.6)
[2024-01-15 18:53] LABS: ALT 40 U/L (4-49); AST 50 U/L (17-59); African American GFR (CKD) >90 (>60 ml/min/1.73 sqM); Albumin 4.1 g/dL (3.5-5.0); Alkaline Phosphatase 127 U/L (38-126); Anion Gap 9 mmol/L; Blood Urea Nitrogen 11 mg/dL (9-20); Calcium 8.5 mg/dL (8.4-10.2); Carbon Dioxide 33 mmol/L (22-30); Chloride 96 mmol/L (98-107); Creatine Kinase 475 U/L (55-170); Glucose 333 mg/dL (74-99); Magnesium 1.4 mg/dL (1.6-2.3); Non-African American GFR(CKD) >90 (>60 ml/min/1.73 sqM); Sodium 138 mmol/L (137-145); Total Bilirubin 2.2 mg/dL (0.2-1.3); Total Protein 6.7 g/dL (6.3-8.2)
[2024-01-15 19:09] LABS: Potassium 2.6 mmol/L (3.5-5.1)
[2024-01-15 19:10] LABS: Appearance,Urine Cloudy (Clear); Bacteria,Urine Many /hpf; Bilirubin,Urine Negative (Negative); Blood,Urine Small (Negative); Color,Urine Colorless; Glucose,Urine (UA) 4+ (Negative); Ketones,Urine Negative (Negative); Leukocyte Esterase,Urine Large (Negative); Mucus,Urine Rare /hpf; Nitrite,Urine Negative (Negative); Protein,Urine Negative (Negative); RBC,Urine 11 /hpf (0-5); Squamous Epithelial Cell,Urine 14 /hpf (0-4); Urobilinogen,Urine <2.0 mg/dL (<2.0); WBC,Urine >182 /hpf (0-5)
[2024-01-15] MEDS: SODIUM CHLORIDE 0.9% 1,000 ML IV ONE (19:44)
[2024-01-15] MEDS: HYDROmorphone 0.5 MG/0.5 ML SYRINGE IVP STA (19:44)
[2024-01-15] MEDS: POTASSIUM CHLORIDE 20 MEQ in WATER FOR INJECTION 1 100ML.BAG IVPB STA (19:49)
[2024-01-15] MEDS: cefTRIAXone IN SWFI 1,000 MG/10 ML SYRINGE IVP STA (20:00)
[2024-01-15] MEDS: POTASSIUM CHLORIDE ER 20 MEQ TAB.ER PO STA (20:01)
[2024-01-15] MEDS: MAGNESIUM OXIDE 400 MG TAB PO STA (20:01)
[2024-01-15] MEDS: SODIUM CHLORIDE 0.9% 500 ML 500 ML IV ONE (20:08)
[2024-01-15] MEDS: KETOROLAC 15 MG/ML 1 ML VIAL IVP STA (20:10)
[2024-01-15] MEDS: MAGNESIUM SULFATE-D5W PMX 1 GM in DEXTROSE/WATER 1 100ML.BAG IVPB ONE (20:12)
[2024-01-15] MEDS: HYDROcodone/APAP 7.5-325MG 1 EACH TAB PO PRN (22:55)
[2024-01-16] MEDS: MORPHINE SULFATE 2 MG/ML SYRINGE IVP PRN (00:39)
[2024-01-16] MEDS: SODIUM CHLORIDE 0.9% 1,000 ML IV ONE (07:28)
[2024-01-16 09:05] LABS: ALT 38 U/L (4-49); AST 47 U/L (17-59); African American GFR (CKD) >90 (>60 ml/min/1.73 sqM); Albumin 3.5 g/dL (3.5-5.0); Alkaline Phosphatase 123 U/L (38-126); Anion Gap 4 mmol/L; Blood Urea Nitrogen 11 mg/dL (9-20); Calcium 7.9 mg/dL (8.4-10.2); Carbon Dioxide 33 mmol/L (22-30); Chloride 102 mmol/L (98-107); Glucose 181 mg/dL (74-99); Magnesium 1.8 mg/dL (1.6-2.3); Non-African American GFR(CKD) >90 (>60 ml/min/1.73 sqM); Potassium 3.1 mmol/L (3.5-5.1); Sodium 139 mmol/L (137-145); Total Bilirubin 2.1 mg/dL (0.2-1.3); Total Protein 5.9 g/dL (6.3-8.2)
[2024-01-16] MEDS: hydrALAZINE HCL 20 MG/ML 1 ML VIAL IVP PRN (09:31)
[2024-01-16] MEDS ORDERED: Potassium Replacement Protocol 1 EACH MISC MISCELLANE PRN ×2 (09:36→11:28)
[2024-01-16] MEDS: POTASSIUM CHLORIDE ER 20 MEQ TAB.ER PO SCH (09:54)
[2024-01-16] MEDS: FUROSEMIDE 20 MG TAB PO SCH (12:50)
--- NOTE | 2024-01-16 13:32 | CT ---
EXAMINATION TYPE: CT abdomen pelvis w con CT DLP: 1796.2 mGycm, Automated exposure control for dose reduction was used. DATE OF EXAM: 01/16/2024 12:33 PM COMPARISON: 09/02/2017 CLINICAL INDICATION:Male, 58 years old with history of Abdominal pain, fevers; abd pain/fever TECHNIQUE: Axial CT abdomen pelvis w con;Sagittal and coronal reformats were created on a separate w orkstation. Contrast used:100 mL of Isovue 300 with IV Contrast, (none if empty) Oral contrast used: without Oral Contrast (none if empty) FINDINGS: LOWER CHEST: Unremarkable ABDOMEN LIVER: Unremarkable GALLBLADDER AND BILE DUCTS: The gallbladder is surgically absent. PANCREAS: Unremarkable. SPLEEN: Unremarkable. ADRENAL GLANDS: Unremarkable. KIDNEYS AND URETERS: No obstructive uropathy. Nonobstructing right 4 mm calculus. PELVIS BLADDER: Unremarkable REPRODUCTIVE: Unremarkable. ABDOMEN & PELVIS STOMACH AND BOWEL: No evidence of bowel obstruction. Scattered colonic diverticula. PERITONEUM/RETROPERITONEUM: No evidence of pneumoperitoneum or free fluid. VASCULATURE: No evidence of aortic aneurysm. MUSCULOSKELETAL: No acute osseous abnormalities, fatty atrophy changes of the psoas muscles bilateral ly. Fatty atrophy changes of the anterior medial thigh compartment.. Post surgical changes the spine with fusion of multiple levels. LYMPH NODES: No gross evidence for lymphadenopathy. SOFT TISSUE/ABDOMINAL WALL: Unremarkable IMPRESSION: 1. No evidence for acute abdominal process. 2. Right obstructing 4 mm calculus. 3. Fatty atrophy changes of the psoas muscles and anterior thigh muscles bilaterally correlate for c hronic cord compression..
--- NOTE | 2024-01-16 14:13 | P.HPIM ---
History of Present Illness H&P Date: 01/16/24 Chief Complaint: Chest pain Chad Rodriguez 58-year-old male with past medical history of hypertension, 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 Patient symptoms began 3-4 days ago suddenly while using both arms to lift himself, and slipped but did not fall. Pain is located bilateral axillary area and biceps. Pain is only present on movement of arms. He took ibuprofen which failed to improve his symptoms. He also reported jitteryness following this incident. Patient reports absence of chest pressure, radiation sweatiness, or palpitations. Patient reports absence fever, heartburn, nausea, vomiting. He has no other complaints at this time. Initial lab work done in the ER showed increased bilirubin, WBC, glucose, CK. Decreased potassium. Urine analysis positive for bacteria and leukocyte esterase. EKG done in the ER showed heart rate of , no ST segment elevation or depression seen, no T-wave inversions seen. Patient admitted to internal medicine service REVIEW OF SYSTEMS: CONSTITUTIONAL: No fever, no malaise, no fatigue. HEENT: No recent visual problems or hearing problems. Denied any sore throat. CARDIOVASCULAR: No chest pain, orthopnea, PND, no palpitations, no syncope. PULMONARY: No shortness of breath, no cough, no hemoptysis. GASTROINTESTINAL: No diarrhea, no nausea, no vomiting, no abdominal pain. NEUROLOGICAL: No headaches, no weakness, no numbness. incomplete T10 paraplegia HEMATOLOGICAL: Denies any bleeding or petechiae. GENITOURINARY: Denies any burning micturition, frequency, or urgency. MUSCULOSKELETAL/RHEUMATOLOGICAL: Denies any joint pain, swelling, or any muscle pain. ENDOCRINE: Denies any polyuria or polydipsia. The rest of the 14-point review of systems is negative. PHYSICAL EXAMINATION: GENERAL: The patient is alert and oriented x3, not in any acute distress. Well d eveloped, well nourished. HEENT: Pupils are round and equally reacting to light. EOMI. No scleral icterus. No conjunctival pallor. Normocephalic, atraumatic. No pharyngeal erythema. No thyromegaly. CARDIOVASCULAR: S1 and S2 present. No murmurs, rubs, or gallops. PULMONARY: Chest is clear to auscultation, no wheezing or crackles. ABDOMEN: Soft, nontender, nondistended, normoactive bowel sounds. No palpable organomegaly. MUSCULOSKELETAL: No joint swelling or deformity. EXTREMITIES: No cyanosis, clubbing, or pedal edema. NEUROLOGICAL: incomplete T10 paraplegia, no upper extremity abnormalities. SKIN: No rashes. Assessment and plan #Chest pain - 2x EKG reviewed, no ST segment elevation or depression seen, no T-wave inversions seen. - ordered D-dimer - serial troponins 1x negative - ordered procal, blood cultures, ESR #UTI - start ceftrioxone #hyperbilrubinemia - CT abdomen - no acute process, 4mm obstructing calculus, fatty liver changes #Hypokalemia - potassium repletion ordered #Hypertension - added hydralazine - if remains uncontrolled, add amlodipine #Hyperglycemia - order HbA1c Labs and medication were reviewed.. Continue same treatment. Continue with symptomatic treatment. Resume home medication. Monitor labs and vitals. DVT and GI prophylaxis. Further recommendations as per clinical course of the patient Attestation I have performed a history and examination and MDM of this patient, discussed the same with the resident/CHIOMA, and agree with the dictator's assessment and plan as written ,documented as a scribe. Patient is a 58-year-old gentleman with a history of paraplegia due to traumatic injury to T10 who presented to ER because of chest pain. Patient stated that chest pain was located in his pectoral area, was reproducible, not associated with any shortness of breath. Initial workup showed UA suspicious for UTI. Patient denies any fever at home. GENERAL: The patient is alert and oriented x3, not in any acute distress. Well developed, well nourished. HEENT: Pupils are round and equally reacting to light. EOMI. No scleral icterus. No conjunctival pallor. Normocephalic, atraumatic. No pharyngeal erythema. No thyromegaly. CARDIOVASCULAR: S1 and S2 present. No murmurs, rubs, or gallops. PULMONARY: Chest is clear to auscultation, no wheezing or crackles. ABDOMEN: Soft, nontender, nondistended, normoactive bowel sounds. No palpable organomegaly. MUSCULOSKELETAL: No joint swelling or deformity. EXTREMITIES: No pitting edema lower extremities NEUROLOGICAL: Muscle strength 5 x 5 in upper extremities, 1 x 5 lower extremities, no atrophy seen SKIN: No rashes. no petechiae. Assessment and plan; chest pain UTI Hypokalemia Hypertension Hyperglycemia Ordered CT abdominal and pelvis and ultrasound abdomen. Check HbA1c level Continue IV antibiotics in the form of Rocephin ID consulted Dr. Ron ortiz Dictation was produced using [employer] dictation software. please excuse any grammatical, word or spelling errors. Past Medical History Past Medical History: Hypertension, Osteoarthritis (OA) Additional Past Medical History / Comment(s): Paraplegic - construction accident 1983, covid - antibody infusion History of Any Multi-Drug Resistant Organisms: None Reported Past Surgical History: Back Surgery, Cholecystectomy, Orthopedic Surgery Additional Past Surgical History / Comment(s): cayla shoulder surgury, COLONOSCOPY, [place] removal Past Anesthesia/Blood Transfusion Reactions: No Reported Reaction Additional Past Anesthesia/Blood Transfusion Reaction / Comment(s): 1983 blood transfusion-no reaction Past Psychological History: Panic Disorder Additional Psychological History / Comment(s): lives with spouse Smoking Status: Never smoker Past Alcohol Use History: Occasional, Rare Past Drug Use History: Marijuana Additional Drug Use History / Comment(s): Has medical marijuana brownies, eats them occasionally for pain - Past Family History Father Family Medical History: Diabetes Mellitus, Hypertension Mother Family Medical History: Hypertension Additional Family Medical History / Comment(s): Rheumatoid Medications and Allergies Home Medications Medication Instructions Recorded Confirmed Type Ibuprofen [Motrin] 600 mg PO BID 07/11/17 01/15/24 History Furosemide [Lasix] 20 mg PO BID 01/15/24 01/15/24 History HYDROcodone/APAP 7.5-325MG [[place] 1 tab PO BID PRN 01/15/24 01/15/24 History 7.5-325] Triamcinolone 0.1% Cream [Kenalog 1 applic TOPICAL BID PRN 01/15/24 01/15/24 [place] 0.1% Cream] Allergies Allergy/AdvReac Type Severity Reaction Status Date / Time ciprofloxacin [From Cipro] Allergy Rash/Hives Verified 01/15/24 19:42 sulfamethoxazole Allergy Rash/Hives Verified 01/15/24 19:42 [From Bactrim] trimethoprim [From Bactrim] Allergy Rash/Hives Verified 01/15/24 19:42 acetaminophen [From Vicodin] AdvReac Nausea Verified 01/15/24 19:42 hydrocodone [From Vicodin] AdvReac Nausea Verified 01/15/24 19:42 Physical Exam Vitals: Vital Signs Temp Pulse Pulse Resp BP BP Pulse Ox 01/16/24 09:49 82 16 99 01/16/24 09:29 68 16 220/101 99 01/16/24 04:00 74 16 197/87 97 01/16/24 00:00 81 16 186/93 99 01/15/24 22:00 97.0 F L 84 16 188/89 98 01/15/24 21:39 76 18 180/75 98 01/15/24 19:30 93 18 162/88 96 01/15/24 18:59 90 18 146/96 98 01/15/24 18:30 90 18 190/113 01/15/24 18:12 101 H 18 190/113 96 Intake and Output 01/15/24 01/16/24 01/16/24 22:59 06:59 14:59 Intake Total 540 540 0 Output Total 1149 Balance 540 540 -1149 Intake: Oral 540 540 0 Output: Urine 700 Post Void Residual 449 Other: Voiding Method Incontinent Incontinent External Catheter External Catheter # Voids 1 Weight 104.326 kg 116.5 kg Results CBC & Chem 7: 01/15/24 18:25 01/16/24 07:51 Labs: Abnormal Lab Results - Last 24 Hours (Table) 01/15/24 01/15/24 01/15/24 Range/Units 18:25 18:25 18:25 WBC 11.7 H (3.8-10.6) k/uL Neutrophils # 8.4 H (1.3-7.7) k/uL Potassium 2.6 L* (3.5-5.1) mmol/L Chloride 96 L (98-107) mmol/L Carbon Dioxide 33 H (22-30) mmol/L Creatinine (0.66-1.25) mg/dL Glucose 333 H (74-99) mg/dL Plasma Lactic Acid Joel (0.7-2.0) mmol/L Calcium (8.4-10.2) mg/dL Magnesium 1.4 L (1.6-2.3) mg/dL Total Bilirubin 2.2 H (0.2-1.3) mg/dL Alkaline Phosphatase 127 H (38-126) U/L Creatine Kinase 475 H (55-170) U/L Total Protein (6.3-8.2) g/dL Urine Glucose (UA) 4+ H (Negative) Urine Blood Small H (Negative) Ur Leukocyte Esterase Large H (Negative) Urine RBC 11 H (0-5) /hpf Urine WBC >182 H (0-5) /hpf Ur Squamous Epith Cells 14 H (0-4) /hpf Urine Bacteria Many H (None) /hpf Urine Mucus Rare H (None) /hpf 01/15/24 01/16/24 Range/Units 18:25 07:51 WBC (3.8-10.6) k/uL Neutrophils # (1.3-7.7) k/uL Potassium 3.1 L (3.5-5.1) mmol/L Chloride (98-107) mmol/L Carbon Dioxide 33 H (22-30) mmol/L Creatinine 0.59 L (0.66-1.25) mg/dL Glucose 181 H (74-99) mg/dL Plasma Lactic Acid Joel 3.1 H* (0.7-2.0) mmol/L Calcium 7.9 L (8.4-10.2) mg/dL Magnesium (1.6-2.3) mg/dL Total Bilirubin 2.1 H (0.2-1.3) mg/dL Alkaline Phosphatase (38-126) U/L Creatine Kinase (55-170) U/L Total Protein 5.9 L (6.3-8.2) g/dL Urine Glucose (UA) (Negative) Urine Blood (Negative) Ur Leukocyte Esterase (Negative) Urine RBC (0-5) /hpf Urine WBC (0-5) /hpf Ur Squamous Epith Cells (0-4) /hpf Urine Bacteria (None) /hpf Urine Mucus (None) /hpf Thrombosis Risk Factor Assmnt - Choose All That Apply Each Factor Represents 1 point: Age 41-60 years, Obesity (BMI >25) Thrombosis Risk Factor Assessment Total Risk Factor Score: 2 Thrombosis Risk Factor Assessment Level: Low Risk
[2024-01-16] MEDS ORDERED: NALOXONE 0.4 MG/ML 1 ML VIAL IV PRN (14:31)
--- NOTE | 2024-01-16 15:17 | US ---
EXAMINATION TYPE: US abdomen complete DATE OF EXAM: 01/16/2024 COMPARISON: NONE CLINICAL INDICATION: Male, 58 years old with history of Abdominal pain; Cholecystectomy, weakness, UT I TECHNIQUE: Multiple sonographic images of the abdomen are obtained. FINDINGS: EXAM MEASUREMENTS: Liver Length: 18.4 cm Gallbladder Wall: Surgically absent CBD: 0.5 cm Spleen: 12.4 cm Right Kidney: 11.3 x 5.1 x 5.9 cm Left Kidney: 11.8 x 5.5 x 4.7 cm INTEGRATION ASSISTANT NOTES: Technical limitations due to patient's body habitus and large amount of overlyi ng gas Pancreas: Obscured by bowel gas Liver: attenuating, unable to penetrate, no dilated ducts cystic structures or solid masses. Gallbladder: Surgically absent Evidence for sonographic Roper's sign: no CBD: limited evaluation Spleen: limited evaluation, appears wnl Right Kidney: dense echogenic focus lower pole = 0.8cm Left Kidney: limited evaluation, no evidence of hydronephrosis Upper IVC: wnl Abd Aorta: Obscured by overlying bowel gas IMPRESSION: 1. No evidence for acute process. 2. Hepatic steatosis. 3. Nonobstructing right renal calculus.
[2024-01-16 16:15] LABS: Glucose,Whole Blood 189 mg/dL (70-110)
[2024-01-16] MEDS: ENOXAPARIN 40 MG/0.4 ML SYRINGE SQ SCH (17:17)
[2024-01-16 20:12] LABS: Glucose,Whole Blood 225 mg/dL (70-110)
--- NOTE | 2024-01-16 22:30 | P.CONS ---
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 construction accident in 1983 patient has been brought to the hospital with a 3-day history of shakiness and jittery and has been complaining of pain to his chest and biceps muscle patient denies high-grade fever did have some chills denies having any headache or URI symptoms some normal nausea but no vomiting no abdominal pain or any diarrhea patient on presentation to the hospital was afebrile and no fever have recorded subsequently patient was not tachycardic or hypotensive not hypoxic and no need for supplemental oxygen patient did have a white count of 11.7 with a left shift creatinine was normal liver isms mildly elevated bili is normal urine has been positive blood cultures obtained unfortunately no urine culture patient has been diagnosed with UTI started on ceftriaxone infectious disease was consulted for further management of antibiotic therapy Review of Systems Positive point and negatives has been mentioned in the HPI, complete review of systems was performed and all other systems are negative Past Medical History Past Medical History: Hypertension, Osteoarthritis (OA) Additional Past Medical History / Comment(s): Paraplegic - construction accident 1983, covid - antibody infusion History of Any Multi-Drug Resistant Organisms: None Reported Past Surgical History: Back Surgery, Cholecystectomy, Orthopedic Surgery Additional Past Surgical History / Comment(s): cayla shoulder surgury, COLONOSCOPY, charlotte removal Past Anesthesia/Blood Transfusion Reactions: No Reported Reaction Additional Past Anesthesia/Blood Transfusion Reaction / Comm: 1983 blood transfusion-no reaction Past Psychological History: Panic Disorder Additional Psychological History / Comment(s): lives with spouse Smoking Status: Never smoker Past Alcohol Use History: Occasional, Rare Past Drug Use History: Marijuana Additional Drug Use History / Comment(s): Has medical marijuana brownies, eats them occasionally for pain - Past Family History Father Family Medical History: Diabetes Mellitus, Hypertension Mother Family Medical History: Hypertension Additional Family Medical History / Comment(s): Rheumatoid Medications and Allergies Home Medications Medication Instructions Recorded Confirmed Type Ibuprofen [Motrin] 600 mg PO BID 07/11/17 01/15/24 History Furosemide [Lasix] 20 mg PO BID 01/15/24 01/15/24 History HYDROcodone/APAP 7.5-325MG [[place] 1 tab PO BID PRN 01/15/24 01/15/24 History 7.5-325] Triamcinolone 0.1% Cream [Kenalog 1 applic TOPICAL BID PRN 01/15/24 01/15/24 History 0.1% Cream] Allergies Allergy/AdvReac Type Severity Reaction Status Date / Time ciprofloxacin [From Cipro] Allergy Rash/Hives Verified 01/15/24 19:42 sulfamethoxazole Allergy Rash/Hives Verified 01/15/24 19:42 [From Bactrim] trimethoprim [From Bactrim] Allergy Rash/Hives Verified 01/15/24 19:42 acetaminophen [From Vicodin] AdvReac Nausea Verified 01/15/24 19:42 hydrocodone [From Vicodin] AdvReac Nausea Verified 01/15/24 19:42 Physical Exam Vitals: Vital Signs Temp Pulse Pulse Resp BP BP Pulse Ox 01/16/24 09:29 68 16 220/101 99 01/16/24 04:00 74 16 197/87 97 01/16/24 00:00 81 16 186/93 99 01/15/24 22:00 97.0 F L 84 16 188/89 98 01/15/24 21:39 76 18 180/75 98 01/15/24 19:30 93 18 162/88 96 01/15/24 18:59 90 18 146/96 98 01/15/24 18:30 90 18 190/113 01/15/24 18:12 101 H 18 190/113 96 Intake and Output 01/15/24 01/16/24 01/16/24 22:59 06:59 14:59 Intake Total 540 540 0 Output Total 449 Balance 540 540 -449 Intake: Oral 540 540 0 Output: Post Void Residual 449 Other: Voiding Method Incontinent Incontinent External Catheter External Catheter # Voids 1 Weight 104.326 kg 116.5 kg GENERAL DESCRIPTION: Middle-aged male lying in bed, no distress. No tachypnea or accessory muscle of respiration use. HEENT: Shows Pallor , no scleral icterus. Oral mucous membrane is dry. NECK: Trachea central, no thyromegaly. LUNGS: Unlabored breathing. Clear to auscultation anteriorly. No wheeze or crackle. HEART: S1, S2, regular rate and rhythm. No loud murmur ABDOMEN: Soft, no tenderness , guarding or rigidity, no organomegaly EXTREMITIES: No edema of feet. SKIN: No rash, no masses palpable. NEUROLOGICAL: The patient is awake, alert, oriented x3, mood and affect normal. Results CBC & Chem 7: 01/15/24 18:25 01/16/24 07:51 Labs: Abnormal Lab Results - Last 24 Hours (Table) 01/15/24 01/15/24 01/15/24 Range/Units 18:25 18:25 18:25 WBC 11.7 H (3.8-10.6) k/uL Neutrophils # 8.4 H (1.3-7.7) k/uL Potassium 2.6 L* (3.5-5.1) mmol/L Chloride 96 L (98-107) mmol/L Carbon Dioxide 33 H (22-30) mmol/L Creatinine (0.66-1.25) mg/dL Glucose 333 H (74-99) mg/dL Plasma Lactic Acid Joel (0.7-2.0) mmol/L Calcium (8.4-10.2) mg/dL Magnesium 1.4 L (1.6-2.3) mg/dL Total Bilirubin 2.2 H (0.2-1.3) mg/dL Alkaline Phosphatase 127 H (38-126) U/L Creatine Kinase 475 H (55-170) U/L Total Protein (6.3-8.2) g/dL Urine Glucose (UA) 4+ H (Negative) Urine Blood Small H (Negative) Ur Leukocyte Esterase Large H (Negative) Urine RBC 11 H (0-5) /hpf Urine WBC >182 H (0-5) /hpf Ur Squamous Epith Cells 14 H (0-4) /hpf Urine Bacteria Many H (None) /hpf Urine Mucus Rare H (None) /hpf 01/15/24 01/16/24 Range/Units 18:25 07:51 WBC (3.8-10.6) k/uL Neutrophils # (1.3-7.7) k/uL Potassium 3.1 L (3.5-5.1) mmol/L Chloride (98-107) mmol/L Carbon Dioxide 33 H (22-30) mmol/L Creatinine 0.59 L (0.66-1.25) mg/dL Glucose 181 H (74-99) mg/dL Plasma Lactic Acid Joel 3.1 H* (0.7-2.0) mmol/L Calcium 7.9 L (8.4-10.2) mg/dL Magnesium (1.6-2.3) mg/dL Total Bilirubin 2.1 H (0.2-1.3) mg/dL Alkaline Phosphatase (38-126) U/L Creatine Kinase (55-170) U/L Total Protein 5.9 L (6.3-8.2) g/dL Urine Glucose (UA) (Negative) Urine Blood (Negative) Ur Leukocyte Esterase (Negative) Urine RBC (0-5) /hpf Urine WBC (0-5) /hpf Ur Squamous Epith Cells (0-4) /hpf Urine Bacteria (None) /hpf Urine Mucus (None) /hpf Assessment and Plan (1) Allergy to multiple antibiotics Current Visit: Yes Status: Acute Code(s): Z88.1 - ALLERGY STATUS TO OTHER ANTIBIOTIC AGENTS SNOMED Code(s): 517830118 (2) UTI (urinary tract infection) Current Visit: Yes Status: Acute Code(s): N39.0 - URINARY TRACT INFECTION, SITE NOT SPECIFIED SNOMED Code(s): 23507625 Plan: 1patient is in the hospital with weakness body aches shakiness did have a positive UA concerning for urinary tract infection likely from enteric gram- negative pathogen. 2patient with multiple antibiotic ALLERGIES that would limit the number of antibiotic safe to use. 3urine culture should be sent from the UA that was sent from the ER if not new UA should be obtained for culture. 4continue with Rocephin while waiting for the culture to finalize. We will follow on clinical condition and cultures to further adjust medication if needed Thank you for this consultation we will follow the patient along with you Dictation was produced using [employer] dictation software. please excuse any grammatical, word or spelling errors. Time with Patient: Greater than 30
[2024-01-17 06:03] LABS: Glucose,Whole Blood 157 mg/dL (70-110)
[2024-01-17 08:02] LABS: HCT 43.5 % (39.0-53.0); HGB 14.6 gm/dL (13.0-17.5); MCH 29.7 pg (25.0-35.0); MCHC 33.6 g/dL (31.0-37.0); MCV 88.5 fL (80.0-100.0); Mean Platelet Volume 7.2; Platelet Count 250 k/uL (150-450); RBC 4.91 m/uL (4.30-5.90); WBC 10.6 k/uL (3.8-10.6)
[2024-01-17 08:40] LABS: ALT 41 U/L (4-49); AST 49 U/L (17-59); African American GFR (CKD) >90 (>60 ml/min/1.73 sqM); Albumin 3.7 g/dL (3.5-5.0); Alkaline Phosphatase 119 U/L (38-126); Anion Gap 6 mmol/L; Blood Urea Nitrogen 11 mg/dL (9-20); Calcium 8.7 mg/dL (8.4-10.2); Carbon Dioxide 28 mmol/L (22-30); Chloride 104 mmol/L (98-107); Glucose 160 mg/dL (74-99); Non-African American GFR(CKD) >90 (>60 ml/min/1.73 sqM); Potassium 3.3 mmol/L (3.5-5.1); Sodium 138 mmol/L (137-145); Total Bilirubin 2.1 mg/dL (0.2-1.3); Total Protein 6.3 g/dL (6.3-8.2)
--- NOTE | 2024-01-17 09:23 | P.PN ---
Subjective Progress Note Date: 01/17/24 Principal diagnosis: Chest pain, HTN, DMII Chad Rodriguez 58-year-old male with past medical history of hypertension, 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 Patient symptoms began 3-4 days ago suddenly while using both arms to lift himself, and slipped but did not fall. Pain is located bilateral axillary area and biceps. Pain is only present on movement of arms. He took ibuprofen which failed to improve his symptoms. He also reported jitteryness following this incident. Patient reports absence of chest pressure, radiation sweatiness, or palpitations. Patient reports absence fever, heartburn, nausea, vomiting. He has no other complaints at this time. 01-17-24 - Patient was seen at bedside, no overnight events. He well and report a bsence of chest pain, palpitations, and syncope. REVIEW OF SYSTEMS: CONSTITUTIONAL: No fever, no malaise, no fatigue. CARDIOVASCULAR: No chest pain, orthopnea, PND, no palpitations, no syncope. PULMONARY: No shortness of breath, no cough, no hemoptysis. GASTROINTESTINAL: No diarrhea, no nausea, no vomiting, no abdominal pain. HEMATOLOGICAL: Denies any bleeding or petechiae. PHYSICAL EXAMINATION: GENERAL: The patient is alert and oriented x3, not in any acute distress. Well developed, well nourished. HEENT: Pupils are round and equally reacting to light. EOMI. No scleral icterus. No conjunctival pallor. Normocephalic, atraumatic. No pharyngeal erythema. No thyromegaly. CARDIOVASCULAR: S1 and S2 present. No murmurs, rubs, or gallops. PULMONARY: Chest is clear to auscultation, no wheezing or crackles. ABDOMEN: Soft, nontender, nondistended, normoactive bowel sounds. No palpable organomegaly. MUSCULOSKELETAL: No joint swelling or deformity. EXTREMITIES: No cyanosis, clubbing, or pedal edema. NEUROLOGICAL: incomplete T10 paraplegia, no upper extremity abnormalities. Gross neurological examination did not reveal any other focal deficits. SKIN: No rashes. Assessment and plan #Chest pain - 2x EKG reviewed, no ST segment elevation or depression seen, no T-wave inver sions seen. - D-dimer .42 - serial troponins 3x negative - procal normal #UTI - continue ceftrioxone day#2 obstructing R renal calculus Consulted urology #Hyperbilrubinemia - CT abdomen - no acute process, 4mm obstructing R renal calculus, fatty liver changes - US abdo same as above - FLORIAN #Hypokalemia - potassium repletion ordered - today improving 3.3 #Hypertension - continue hydralazine - add amlodipine due to persistent elevation #Hyperglycemia -- HbA1c 9.1 - glucose 157 today, improving - begin insulin sliding scale - q4h BM check Attestation I have seen and examined this patient with my resident , discussed the same with the resident/CHIOMA, and agree with the dictator's assessment and plan as written Blood pressure was elevated, discussed with patient regarding starting oral Norvasc, patient agreeable. Discussed with patient regarding his HbA1c level of 9.1, patient at this time is not agreeable to start on insulin. Patient is more agreeable to start oral hypoglycemic, we will start patient on metformin and sulfonylurea at DC since patient has contrast yesterday will wait for 48 hours before starting oral hypoglycemics CT abdominal pelvis reviewed, urology consulted for right renal calculus Dr. Ron ortiz Objective - Vital Signs Vital signs: Vital Signs Temp 98.7 F 01/17/24 07:19 Pulse 105 H 01/17/24 07:19 Resp 16 01/17/24 07:19 BP 172/97 01/17/24 07:19 Pulse Ox 98 01/17/24 07:19 FiO2 Intake & Output 01/16/24 01/17/24 01/17/24 18:59 06:59 18:59 Intake Total 236 540 236 Output Total 4649 550 Balance -4413 -10 236 Weight 112 kg Intake: Oral 236 540 236 Output: Urine 4200 550 Post Void Residual 449 Other: Voiding Method Incontinent Incontinent Incontinent External Catheter External Catheter External Catheter - Labs CBC & Chem 7: 01/17/24 07:05 01/17/24 07:05 Labs: Abnormal Lab Results - Last 24 Hours (Table) 01/16/24 01/16/24 01/16/24 Range/Units 07:51 15:21 16:11 Potassium 3.1 L (3.5-5.1) mmol/L Carbon Dioxide 33 H (22-30) mmol/L Creatinine 0.59 L (0.66-1.25) mg/dL Glucose 181 H (74-99) mg/dL POC Glucose (mg/dL) 189 H (70-110) mg/dL Hemoglobin A1c 9.1 H (<=6.0) % Calcium 7.9 L (8.4-10.2) mg/dL Total Bilirubin 2.1 H (0.2-1.3) mg/dL Total Protein 5.9 L (6.3-8.2) g/dL 01/16/24 01/17/24 01/17/24 Range/Units 20:10 06:01 07:05 Potassium 3.3 L (3.5-5.1) mmol/L Carbon Dioxide (22-30) mmol/L Creatinine 0.62 L (0.66-1.25) mg/dL Glucose 160 H (74-99) mg/dL POC Glucose (mg/dL) 225 H 157 H (70-110) mg/dL Hemoglobin A1c (<=6.0) % Calcium (8.4-10.2) mg/dL Total Bilirubin 2.1 H (0.2-1.3) mg/dL Total Protein (6.3-8.2) g/dL
[2024-01-17] MEDS ORDERED: Potassium Replacement Protocol 1 EACH MISC MISCELLANE PRN ×2 (10:18→17:11)
[2024-01-17] MEDS: amLODIPine 5 MG TAB PO SCH (11:09)
[2024-01-17] MEDS: POTASSIUM CHLORIDE ER 20 MEQ TAB.ER PO SCH ×2 (11:09→18:04)
[2024-01-17 11:15] LABS: Glucose,Whole Blood 195 mg/dL (70-110)
--- NOTE | 2024-01-17 14:56 | P.PN ---
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 On today's evaluation that is 01/17/2024, Patient is afebrile patient is currently on room air and denies having any shortness of breath, the patient denies any chest pain or cough, the patient denies any nausea vomiting did not have any abdominal pain and no diarrhea mention overall body aches has improved feeling slightly better today. Patient white count normalized to 10.6, creatinine 0.62 blood cultures pending urine cultures pending Objective - Vital Signs Vital signs: Vital Signs Temp 98.7 F 01/17/24 07:19 Pulse 105 H 01/17/24 07:19 Resp 16 01/17/24 07:19 BP 172/97 01/17/24 07:19 Pulse Ox 98 01/17/24 07:19 FiO2 Intake & Output 01/16/24 01/17/24 01/17/24 18:59 06:59 18:59 Intake Total 236 540 236 Output Total 4649 550 Balance -4413 -10 236 Weight 112 kg Intake: Oral 236 540 236 Output: Urine 4200 550 Post Void Residual 449 Other: Voiding Method Incontinent Incontinent Incontinent External Catheter External Catheter External Catheter - Exam GENERAL DESCRIPTION: Middle-age male lying in bed in no distress RESPIRATORY SYSTEM: Unlabored breathing , decreased breath sounds at bases HEART: S1 S2 regular rate and rhythm , ABDOMEN: Soft , no tenderness EXTREMITIES: No edema feet - Labs CBC & Chem 7: 01/17/24 07:05 01/17/24 07:05 Labs: Abnormal Lab Results - Last 24 Hours (Table) 01/16/24 01/16/24 01/16/24 Range/Units 15:21 16:11 20:10 Potassium (3.5-5.1) mmol/L Creatinine (0.66-1.25) mg/dL Glucose (74-99) mg/dL POC Glucose (mg/dL) 189 H 225 H (70-110) mg/dL Hemoglobin A1c 9.1 H (<=6.0) % Total Bilirubin (0.2-1.3) mg/dL 01/17/24 01/17/24 Range/Units 06:01 07:05 Potassium 3.3 L (3.5-5.1) mmol/L Creatinine 0.62 L (0.66-1.25) mg/dL Glucose 160 H (74-99) mg/dL POC Glucose (mg/dL) 157 H (70-110) mg/dL Hemoglobin A1c (<=6.0) % Total Bilirubin 2.1 H (0.2-1.3) mg/dL Assessment and Plan (1) Allergy to multiple antibiotics Current Visit: Yes Status: Acute Code(s): Z88.1 - ALLERGY STATUS TO OTHER ANTIBIOTIC AGENTS SNOMED Code(s): 681926882 (2) UTI (urinary tract infection) Current Visit: Yes Status: Acute Code(s): N39.0 - URINARY TRACT INFECTION, SITE NOT SPECIFIED SNOMED Code(s): 32462768 Plan: 1patient is in the hospital with weakness body aches shakiness did have a positive UA concerning for urinary tract infection likely from enteric gram- negative pathogen. 2patient with multiple antibiotic ALLERGIES that would limit the number of antibiotic safe to use. 3blood urine culture has been pending ultrasound shows a nonobstructive right- sided renal stone no hydronephrosis 4patient to continue with Rocephin while waiting for the culture to finalize and monitor clinical course closely Dictation was produced using [employer] dictation software. please excuse any grammatical, word or spelling errors. Time with Patient: Less than 30
[2024-01-17 16:28] LABS: Glucose,Whole Blood 180 mg/dL (70-110)
[2024-01-17 20:09] LABS: Glucose,Whole Blood 144 mg/dL (70-110)
[2024-01-18 06:04] LABS: Glucose,Whole Blood 144 mg/dL (70-110)
[2024-01-18 10:03] LABS: Basophils # (A) 0.1 k/uL (0-0.2); Basophils % (A) 1 %; Eosinophils # (A) 0.5 k/uL (0-0.7); Eosinophils % (A) 5 %; HCT 43.4 % (39.0-53.0); HGB 14.6 gm/dL (13.0-17.5); Lymphocytes # (A) 2.1 k/uL (1.0-4.8); Lymphocytes % (A) 22 %; MCH 30.1 pg (25.0-35.0); MCHC 33.6 g/dL (31.0-37.0); MCV 89.6 fL (80.0-100.0); Monocytes # (A) 0.5 k/uL (0-1.0); Monocytes % (A) 5 %; Neutrophils # (A) 6.1 k/uL (1.3-7.7); Neutrophils % (A) 65 %; Platelet Count 231 k/uL (150-450); RBC 4.85 m/uL (4.30-5.90); RDW 13.9 % (11.5-15.5); WBC 9.3 k/uL (3.8-10.6)
[2024-01-18 10:14] LABS: African American GFR (CKD) >90 (>60 ml/min/1.73 sqM); Anion Gap 8 mmol/L; Blood Urea Nitrogen 13 mg/dL (9-20); Calcium 8.9 mg/dL (8.4-10.2); Carbon Dioxide 27 mmol/L (22-30); Chloride 103 mmol/L (98-107); Glucose 184 mg/dL (74-99); Non-African American GFR(CKD) >90 (>60 ml/min/1.73 sqM); Potassium 3.5 mmol/L (3.5-5.1); Sodium 138 mmol/L (137-145)
[2024-01-18] MEDS ORDERED: Potassium Replacement Protocol 1 EACH MISC MISCELLANE PRN (11:11)
[2024-01-18] MEDS: POTASSIUM CHLORIDE ER 20 MEQ TAB.ER PO SCH (11:23)
[2024-01-18 11:30] LABS: Glucose,Whole Blood 159 mg/dL (70-110)
--- NOTE | 2024-01-18 13:10 | P.GSCN ---
History of Present Illness Consult date: 01/18/24 History of present illness: 58 yo male, t10 paraplegia for years in [facility] with a uti. We were asked to see for a kidney stone. The ct torrez shows a non obstructing 4 mm right renal stone. He s afebrile and feeling better. His cr is normal. His wbc was 10 k on admission.patient manage his bladder by spontaneous voiding. He is to be seen in the office by me but I have not had to see him for several years. His bowel movements are regular. He has had no decubiti. Feeling better at this point in time. Review of Systems All systems: negative - Constitutional Denies fever, Denies weight loss - EENT Eyes: denies blurred vision Ears, nose, mouth and throat: Denies dysphagia - Cardiovascular Denies chest pain, Denies shortness of breath - Respiratory Denies cough, Denies 7 - Gastrointestinal Reports as per HPI - Genitourinary Denies dysuria, Denies hematuria - Integumentary Denies rash, Denies unusual bruising - Neurological Denies headaches, Denies syncope - Hematologic/Lymphatic Denies easy bleeding, Denies easy bruising Past Medical History Past Medical History: Hypertension, Osteoarthritis (OA) Additional Past Medical History / Comment(s): Paraplegic - construction accident 1983, covid - antibody infusion History of Any Multi-Drug Resistant Organisms: None Reported Past Surgical History: Back Surgery, Cholecystectomy, Orthopedic Surgery Additional Past Surgical History / Comment(s): cayla shoulder surgury, COLONOSCOPY, [place] removal Past Anesthesia/Blood Transfusion Reactions: No Reported Reaction Additional Past Anesthesia/Blood Transfusion Reaction / Comm: 1983 blood transfusion-no reaction Past Psychological History: Panic Disorder Additional Psychological History / Comment(s): lives with spouse Smoking Status: Never smoker Past Alcohol Use History: Occasional, Rare Past Drug Use History: Marijuana Additional Drug Use History / Comment(s): Has medical marijuana brownies, eats them occasionally for pain - Past Family History Father Family Medical History: Diabetes Mellitus, Hypertension Mother Family Medical History: Hypertension Additional Family Medical History / Comment(s): Rheumatoid Medications and Allergies Home Medications Medication Instructions Recorded Confirmed Type Ibuprofen [Motrin] 600 mg PO BID 07/11/17 01/15/24 History Furosemide [Lasix] 20 mg PO BID 01/15/24 01/15/24 History HYDROcodone/APAP 7.5-325MG [[place] 1 tab PO BID PRN 01/15/24 01/15/24 History 7.5-325] Triamcinolone 0.1% Cream [Kenalog 1 applic TOPICAL BID PRN 01/15/24 01/15/24 History 0.1% Cream] Allergies Allergy/AdvReac Type Severity Reaction Status Date / Time ciprofloxacin [From Cipro] Allergy Rash/Hives Verified 01/15/24 19:42 sulfamethoxazole Allergy Rash/Hives Verified 01/15/24 19:42 [From Bactrim] trimethoprim [From Bactrim] Allergy Rash/Hives Verified 01/15/24 19:42 acetaminophen [From Vicodin] AdvReac Nausea Verified 01/15/24 19:42 hydrocodone [From Vicodin] AdvReac Nausea Verified 01/15/24 19:42 Surgical - Exam Vital Signs Pulse Resp BP Pulse Ox 101 H 18 190/113 96 01/15/24 18:12 01/15/24 18:12 01/15/24 18:12 01/15/24 18:12 - General well developed, well nourished, no distress - Eyes normal ocular movement, no icteric - ENT no hearing loss, no congestion - Neck no masses, trachea midline - Respiratory normal respiratory effort, clear to auscultation - Abdomen Abdomen: soft, non tender, no guarding, no rigid, no rebound - Integumentary no rash, no abnormal pigmentation - Neurologic no disoriented, no combative - Psychiatric oriented to time, oriented to person, oriented to place, speech is normal, memory intact Results - Labs 01/18/24 09:38 01/18/24 09:38 Abnormal Lab Results - Last 24 Hours (Table) 01/17/24 01/17/24 01/17/24 Range/Units 07:05 11:14 16:23 Potassium 3.3 L (3.5-5.1) mmol/L Creatinine 0.62 L (0.66-1.25) mg/dL Glucose 160 H (74-99) mg/dL POC Glucose (mg/dL) 195 H 180 H (70-110) mg/dL Total Bilirubin 2.1 H (0.2-1.3) mg/dL 01/17/24 01/18/24 Range/Units 19:51 05:50 Potassium (3.5-5.1) mmol/L Creatinine (0.66-1.25) mg/dL Glucose (74-99) mg/dL POC Glucose (mg/dL) 144 H 144 H (70-110) mg/dL Total Bilirubin (0.2-1.3) mg/dL Microbiology - Last 24 Hours (Table) 01/15/24 20:00 Blood Culture - Preliminary Blood 01/15/24 19:45 Blood Culture - Preliminary Blood Diabetes panel 01/17/24 01/17/24 Range/Units 07:05 16:20 Sodium 138 (137-145) mmol/L Potassium 3.3 L 3.5 (3.5-5.1) mmol/L Chloride 104 (98-107) mmol/L Carbon Dioxide 28 (22-30) mmol/L BUN 11 (9-20) mg/dL Creatinine 0.62 L (0.66-1.25) mg/dL Glucose 160 H (74-99) mg/dL Calcium 8.7 (8.4-10.2) mg/dL AST 49 (17-59) U/L ALT 41 (4-49) U/L Alkaline Phosphatase 119 (38-126) U/L Total Protein 6.3 (6.3-8.2) g/dL Albumin 3.7 (3.5-5.0) g/dL Calcium panel 01/17/24 Range/Units 07:05 Calcium 8.7 (8.4-10.2) mg/dL Albumin 3.7 (3.5-5.0) g/dL Pituitary panel 01/17/24 01/17/24 Range/Units 07:05 16:20 Sodium 138 (137-145) mmol/L Potassium 3.3 L 3.5 (3.5-5.1) mmol/L Chloride 104 (98-107) mmol/L Carbon Dioxide 28 (22-30) mmol/L BUN 11 (9-20) mg/dL Creatinine 0.62 L (0.66-1.25) mg/dL Glucose 160 H (74-99) mg/dL Calcium 8.7 (8.4-10.2) mg/dL Adrenal panel 01/17/24 01/17/24 Range/Units 07:05 16:20 Sodium 138 (137-145) mmol/L Potassium 3.3 L 3.5 (3.5-5.1) mmol/L Chloride 104 (98-107) mmol/L Carbon Dioxide 28 (22-30) mmol/L BUN 11 (9-20) mg/dL Creatinine 0.62 L (0.66-1.25) mg/dL Glucose 160 H (74-99) mg/dL Calcium 8.7 (8.4-10.2) mg/dL Total Bilirubin 2.1 H (0.2-1.3) mg/dL AST 49 (17-59) U/L ALT 41 (4-49) U/L Alkaline Phosphatase 119 (38-126) U/L Total Protein 6.3 (6.3-8.2) g/dL Albumin 3.7 (3.5-5.0) g/dL - Imaging CT scan - abdomen: report reviewed, image reviewed CT scan - pelvis: report reviewed, image reviewed Assessment and Plan Assessment: Impression: uti complicated by ngb. renal stone right non obstructive. t 10 paraplegia with secondary ngb Recommendations: At this juncture the patient is being treated appropriately with antibiotics. Nothing surgical needs to be done as the stone is in the kidney. We did discuss treatment for the stone which will be decided later date. He should be treated as an acute prostatitis with 30 days of antibiotics. I will see in the office in follow-up.
--- NOTE | 2024-01-18 13:18 | P.PN ---
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 Patient symptoms began 3-4 days ago suddenly while using both arms to lift himself, and slipped but did not fall. Pain is located bilateral axillary area and biceps. Pain is only present on movement of arms. He took ibuprofen which failed to improve his symptoms. He also reported jitteryness following this incident. Patient reports absence of chest pressure, radiation sweatiness, or palpitations. Patient reports absence fever, heartburn, nausea, vomiting. He has no other complaints at this time. 01-17-24 - Patient was seen at bedside, no overnight events. He well and report absence of chest pain, palpitations, and syncope. 01/17. Patient seen and examined. Blood pressure still elevated, increase Norvasc to 10 mg daily. REVIEW OF SYSTEMS: CONSTITUTIONAL: No fever, no malaise, no fatigue. CARDIOVASCULAR: No chest pain, orthopnea, PND, no palpitations, no syncope. PULMONARY: No shortness of breath, no cough, no hemoptysis. GASTROINTESTINAL: No diarrhea, no nausea, no vomiting, no abdominal pain. HEMATOLOGICAL: Denies any bleeding or petechiae. PHYSICAL EXAMINATION: GENERAL: The patient is alert and oriented x3, not in any acute distress. Well developed, well nourished. HEENT: Pupils are round and equally reacting to light. EOMI. No scleral icterus. No conjunctival pallor. Normocephalic, atraumatic. No pharyngeal erythema. No thyromegaly. CARDIOVASCULAR: S1 and S2 present. No murmurs, rubs, or gallops. PULMONARY: Chest is clear to auscultation, no wheezing or crackles. ABDOMEN: Soft, nontender, nondistended, normoactive bowel sounds. No palpable organomegaly. MUSCULOSKELETAL: No joint swelling or deformity. EXTREMITIES: No cyanosis, clubbing, or pedal edema. NEUROLOGICAL: incomplete T10 paraplegia, no upper extremity abnormalities. Gross neurological examination did not reveal any other focal deficits. SKIN: No rashes. Assessment and plan #Chest pain - 2x EKG reviewed, no ST segment elevation or depression seen, no T-wave inversions seen. - D-dimer .42 - serial troponins 3x negative - procal normal Resolved #UTI - continue ceftrioxone day#3 obstructing R renal calculus Urology following #Hyperbilrubinemia - CT abdomen - no acute process, 4mm obstructing R renal calculus, fatty liver changes - US abdo same as above - [facility] #Hypokalemia Monitor BMP #Hypertension -Increase Norvasc to 10 mg daily #Hyperglycemia -- HbA1c 9.1 - glucose 157 today, improving - begin insulin sliding scale - q4h BM check Objective - Vital Signs Vital signs: Vital Signs Temp 98.2 F 01/17/24 20:00 Pulse 79 01/18/24 07:25 Resp 16 01/18/24 07:25 BP 185/84 01/18/24 07:25 Pulse Ox 99 01/18/24 07:25 FiO2 Intake & Output 01/17/24 01/18/24 01/18/24 18:59 06:59 18:59 Intake Total 734 540 118 Output Total 1400 625 Balance -666 -85 118 Weight 112.5 kg Intake: IV 50 cefTRIAXone 2 gm In 50 Sodium Chloride 0.9% 50 ml @ 100 mls/hr IVPB Q24HR [facility] Rx#:[id number] Oral 684 540 118 Output: Urine 1400 625 Other: Voiding Method Incontinent Incontinent Incontinent External Catheter External Catheter External Catheter - Labs CBC & Chem 7: 01/18/24 09:38 01/18/24 09:38 Labs: Abnormal Lab Results - Last 24 Hours (Table) 01/17/24 01/17/24 01/17/24 Range/Units 11:14 16:23 19:51 Creatinine (0.66-1.25) mg/dL Glucose (74-99) mg/dL POC Glucose (mg/dL) 195 H 180 H 144 H (70-110) mg/dL 01/18/24 01/18/24 Range/Units 05:50 09:38 Creatinine 0.60 L (0.66-1.25) mg/dL Glucose 184 H (74-99) mg/dL POC Glucose (mg/dL) 144 H (70-110) mg/dL Microbiology - Last 24 Hours (Table) 01/15/24 20:00 Blood Culture - Preliminary Blood 01/15/24 19:45 Blood Culture - Preliminary Blood
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
[2024-01-18 16:02] LABS: Glucose,Whole Blood 166 mg/dL (70-110)
[2024-01-18 20:42] LABS: Glucose,Whole Blood 130 mg/dL (70-110)
[2024-01-19 06:11] LABS: Glucose,Whole Blood 158 mg/dL (70-110)
[2024-01-19] MEDS: amLODIPine 10 MG TAB PO SCH (08:25)
[2024-01-19 09:25] VITALS: TEMP 98.2
[2024-01-19 11:05] VITALS: BP 139/80; PULSE 92; RESP 18
[2024-01-19 11:20] LABS: Glucose,Whole Blood 205 mg/dL (70-110)
[2024-01-19] MEDS ORDERED: DEXTROSE 50% SYRINGE 50 ML IVP PRN ×2 (11:25)
[2024-01-19] MEDS: INSULIN ASPART (NovoLOG) 100 UNIT/ML VIAL SQ SCH (11:38)
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
[2024-01-19 13:24] VITALS: BMI 31.4
--- NOTE | 2024-01-19 15:11 | P.DS ---
Providers Date of admission: 01/15/24 20:31 Expected date of discharge: 01/19/24 Attending physician: Sherron Reagan Consults: 01/16/24 09:02 Consult Physician Routine Consulting Provider: Alexei Anderson Consult Reason/Comments: uti Do you want consulting provider notified?: Yes 01/17/24 11:17 Consult Physician Routine Consulting Provider: Kyler Hardwick Consult Reason/Comments: Obstructive ureter calculus Do you want consulting provider notified?: Yes Primary care physician: Guicho Krause Hospital Course: Discharge diagnoses; #Chest pain - Resolved - 2x EKG reviewed, no ST segment elevation or depression seen, no T-wave inversions seen. - D-dimer .42 - serial troponins 3x negative - muscle strain likely given increased CK #UTI/Prostatitis - non- obstructing R renal calculus - will d/c on 7 day course of Ceftin, BID - following up outpatient #Hyperbilrubinemia - CT abdomen - no acute process, 4mm non-obstructing R renal calculus, fatty liver changes - US abdo same as above - likely to pass w/o intervention, per urology #Hypokalemia - resolved - given potassium supplementation - now WNL - recommended to take home lasix on PRN basis, up to once daily #Hypertension - elevated through hospital course - will d/c on lisinopril 2.5 mg daily #Hyperglycemia - HbA1c 9.1 - elevated blood glucose during hospital coarse - given Metformin 500 mg BID on d/c Hospital course; Chad Rodriguez 58-year-old male with past medical history of hypertension, 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 Patient symptoms began 3-4 days ago suddenly while using both arms to lift himself, and slipped but did not fall. Pain is located bilateral axillary area and biceps. Pain is only present on movement of arms. He took ibuprofen which failed to improve his symptoms. He also reported jitteryness following this incident. Patient reports absence of chest pressure, radiation sweatiness, or palpitations. Patient reports absence fever, heartburn, nausea, vomiting. He has no other complaints at this time. 01-17-24 - Patient was seen at bedside, no overnight events. He well and report absence of chest pain, palpitations, and syncope. 01/17. Patient seen and examined. Blood pressure still elevated, increase Norvasc to 10 mg daily. 01-19-24 Patient seen and examined. Feeling well. Vitals stable. Will discharge on new metformin and lisinopril. Patient to continue 7 day course of Ceftin for prostatitis per ID. Discussed with patient need for followup with PCP and urology. PHYSICAL EXAMINATION: GENERAL: The patient is alert and oriented x3, not in any acute distress. Well developed, well nourished. HEENT: Pupils are round and equally reacting to light. EOMI. No scleral icterus. No conjunctival pallor. Normocephalic, atraumatic. No pharyngeal erythema. No thyromegaly. CARDIOVASCULAR: S1 and S2 present. No murmurs, rubs, or gallops. PULMONARY: Chest is clear to auscultation, no wheezing or crackles. ABDOMEN: Soft, nontender, nondistended, normoactive bowel sounds. No palpable organomegaly. MUSCULOSKELETAL: No joint swelling or deformity. EXTREMITIES: No cyanosis, clubbing, or pedal edema. NEUROLOGICAL: incomplete T10 paraplegia, no upper extremity abnormalities. Gross neurological examination did not reveal any other focal deficits. SKIN: No rashes. Dictation was produced using [employer] dictation software. please excuse any grammatical, word or spelling errors. Patient Condition at Discharge: Good Plan - Discharge Summary Discharge Rx Participant: Yes New Discharge Prescriptions: New metFORMIN HCL [Glucophage] 500 mg PO BID 30 Days #60 tab lisinopriL 2.5 mg PO DAILY 30 Days #30 tab cefUROXime axetiL [Cefuroxime] 500 mg PO BID 7 Days #14 tab Continue HYDROcodone/APAP 7.5-325MG [[place] 7.5-325] 1 tab PO BID PRN PRN Reason: Pain Triamcinolone 0.1% Cream [Kenalog 0.1% Cream] 1 applic TOPICAL BID PRN PRN Reason: Skin Irritation Changed Furosemide [Lasix] 20 mg PO DAILY 30 Days #30 Discontinued Ibuprofen [Motrin] 600 mg PO BID Discharge Medication List HYDROcodone/APAP 7.5-325MG [[place] 7.5-325] 1 tab PO BID PRN 01/15/24 [History] Triamcinolone 0.1% Cream [Kenalog 0.1% Cream] 1 applic TOPICAL BID PRN 01/15/24 [History] Furosemide [Lasix] 20 mg PO DAILY 30 Days #30 01/19/24 [Rx] cefUROXime axetiL [Cefuroxime] 500 mg PO BID 7 Days #14 tab 01/19/24 [Rx] lisinopriL 2.5 mg PO DAILY 30 Days #30 tab 01/19/24 [Rx] metFORMIN HCL [Glucophage] 500 mg PO BID 30 Days #60 tab 01/19/24 [Rx] Follow up Appointment(s)/Referral(s): Guicho Krause DO [Primary Care Provider] - 1-2 days Rony Singh MD [STAFF PHYSICIAN] - 02/11/24 3:20 pm Patient Instructions/Handouts: Urinary Tract Infection in Men (DC) Discharge Disposition: HOME SELF-CARE
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
== END 2024-01-19 15:16 | disposition home or self-care (01) | DRG 690 ==
LOC: EC 18:04 → 3SCARD 20:31
PROVIDERS: ADMIT Internal Medicine; ATTEND Internal Medicine
DX: N39.0 Urinary tract infection, site not specified (principal); G82.22 Paraplegia, incomplete; I10 Essential (primary) hypertension; E83.42 Hypomagnesemia; E87.6 Hypokalemia; N20.0 Calculus of kidney; F41.0 Panic disorder [episodic paroxysmal anxiety]; N32.81 Overactive bladder; G43.909 Migraine, unspecified, not intractable, without status migrainosus; E11.65 Type 2 diabetes mellitus with hyperglycemia; K76.0 Fatty (change of) liver, not elsewhere classified; N41.9 Inflammatory disease of prostate, unspecified; Z88.1 Allergy status to other antibiotic agents; Z79.899 Other long term (current) drug therapy; Z88.2 Allergy status to sulfonamides; Z88.5 Allergy status to narcotic agent
CPT/HCPCS: 36415; 74177; 76700; 80048; 80053; 81001; 82550; 83036; 83605; 83735; 84132; 84145; 84484; 85025; 85027; 85379; 85652; 86140; 87040; 87086; 93005; 96365; 96366; 96375; 99285

== ENCOUNTER 2024-08-03 03:02 | Inpatient (IN) | payer MEDICARE ==
--- NOTE | 2024-08-03 03:45 | ED ---
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 Pt states that he typically wears a condom catheter and voids spontaneously as his bladder fills. He does not usually get the typically symptoms of a UTI or feel himself urinate but today noticed increased bladder spasms as he urinated. He felt these spasms radiate down his legs. This happened three times over the course of the last night before he became concerned that he was developing a UTI and came to the ED. Pt states he becomes very sick from UTIs typically requiring hospitalization so wanted to get taken care of before he got sicker. He currently denies abdominal pain, new back pain, new numbness/ weakness in LE, fevers/chills, nausea, vomiting, diarrhea. - Related Data Home Medications Medication Instructions Recorded Confirmed Furosemide [Lasix] 20 mg PO DAILY 08/03/24 08/03/24 Furosemide [Lasix] 20 mg PO DAILY PRN 08/03/24 08/03/24 Ibuprofen [Motrin Ib] 600 mg PO BID 08/03/24 08/03/24 Metoprolol Succinate (ER) [Toprol 100 mg PO DAILY 08/03/24 08/03/24 XL] Psyllium Husk 100% [Metamucil 6 gm PO BID 08/03/24 08/03/24 Packet] amLODIPine BES/OLMESARTAN MED 1 tab PO DAILY 08/03/24 08/03/24 [amLODIPine BES/OLMESARTAN MED 10-40 mg] sitaGLIPtin [Januvia] 100 mg PO DAILY 08/03/24 08/03/24 Previous Rx's Medication Instructions Recorded Acetaminophen Tab [Tylenol] 650 mg PO Q6HR PRN tab 08/09/24 Famotidine [Pepcid] 20 mg PO BID #60 tab 08/09/24 Mag Hydrox/Al Hydrox/Simeth 15 ml PO Q6HR PRN ml 08/09/24 [Maalox] Tamsulosin [Flomax] 0.4 mg PO BID #60 cap 01/27/25 cefuroxime axetiL [Ceftin] 500 mg PO BID 7 Days #14 tab 08/09/24 hydrALAZINE HCL [Apresoline] 50 mg PO TID #90 tab 08/09/24 Allergies Allergy/AdvReac Type Severity Reaction Status Date / Time ciprofloxacin [From Cipro] Allergy Rash/Hives Verified 08/03/24 09:24 Review of Systems ROS Statement: Those systems with pertinent positive or pertinent negative responses have been documented in the HPI. ROS Other: All systems not noted in ROS Statement are negative. Past Medical History Past Medical History: Hypertension, Osteoarthritis (OA) Additional Past Medical History / Comment(s): Paraplegic - construction accident 1983, covid - antibody infusion History of Any Multi-Drug Resistant Organisms: None Reported Past Surgical History: Back Surgery, Cholecystectomy, Orthopedic Surgery Additional Past Surgical History / Comment(s): cayla shoulder surgury, [place] LONOSCOPY, charlotte removal Past Anesthesia/Blood Transfusion Reactions: No Reported Reaction Additional Past Anesthesia/Blood Transfusion Reaction / Comment(s): 1983 blood transfusion-no reaction Past Psychological History: Panic Disorder Smoking Status: Never smoker Past Alcohol Use History: Occasional, Rare Past Drug Use History: Marijuana - Past Family History Father Family Medical History: Diabetes Mellitus, Hypertension Mother Family Medical History: Hypertension Additional Family Medical History / Comment(s): Rheumatoid General Exam - General Exam Comments Initial Comments: PE: CONSTITUTIONAL: [no apparent distress, well appearing] SKIN: [warm, dry, no jaundice, hives or petechiae] EYES:[ pupils are equally round, extraocular movements intact without nystagmus, clear conjunctiva, non-icteric sclera] HENT: [normocephalic, atraumatic, moist mucus membranes, oropharynx clear without exudates] NECK: , [Full range of motion, normal appearance] PULMONARY: [clear to auscultation without wheezes, rhonchi, or rales, normal excursion, no accessory muscle use and no stridor] CARDIOVASCULAR:[ regular rate, rhythm, normal S1 and S2. No appreciated murmurs, rubs or gallops. Strong radial pulses with intact distal perfusion. No lower extremity edema] GASTROINTESTINAL: [soft, active bowel sounds throughout, non-tender, non- distended, no palpable masses, no rebound or guarding. No hepatosplenomegaly] GENITOURINARY: MUSCULOSKELETAL: [Extremities have no gross deformity] NEUROLOGIC: [_a/o x 3, GCS 15, normal mentation and speech. No focal neuro deficits, chronic and equal weakness in the bilateral LE, pt denies changes in sensation from baseline PSYCHIATRIC:[ _normal mood and affect, thought process is clear and linear] Limitations: no limitations Course Vital Signs 08/03/24 08/03/24 08/03/24 03:12 06:00 08:09 Temperature 98.6 F 98.4 F Pulse Rate 67 54 L 70 Respiratory 17 17 18 Rate Blood Pressure 172/87 151/76 158/75 O2 Sat by Pulse 98 98 97 Oximetry 08/03/24 08/03/24 08/03/24 09:18 10:10 15:30 Temperature Pulse Rate 61 49 L 51 L Respiratory 14 16 16 Rate Blood Pressure 145/79 130/66 145/74 O2 Sat by Pulse 98 97 97 Oximetry 08/03/24 17:00 Temperature Pulse Rate 54 L Respiratory 18 Rate Blood Pressure 148/82 O2 Sat by Pulse 96 Oximetry Medical Decision Making - Medical Decision Making Was pt. sent in by a medical professional or institution (, PA, CURING FINISHER, urgent care, hospital, or group home...) When possible be specific @ -[No] Did you speak to anyone other than the patient for history (EMS, parent, family, police, friend...)? What history was obtained from this source @ -[No] Did you review nursing and triage notes (agree or disagree)? Why? @ -[I reviewed nursing and triage notes] Differential Diagnosis (chest pain, altered mental status, abdominal pain women, abdominal pain men, vaginal bleeding, weakness, fever, dyspnea, syncope, headache, dizziness, GI bleed, back pain, seizure, CVA, palpatations, mental health, musculoskeletal)? @Differential diagnosis remains broad however top considerations include UTI, pyelonephritis, ureterolithiasis, neurogenic bladder, this is not all inclusive list EKG interpreted by me (3pts min.). @ -[As above] X-rays interpreted by me (1pt min.). @ -[None done] CT interpreted by me (1pt min.). @ -[None done] U/S interpreted by me (1pt. min.). @ -[None done] What testing was considered but not performed or refused? (CT, X-rays, U/S, labs)? Why? @ -[None] What meds were considered but not given or refused? Why? @ -[None] Did you discuss the management of the patient with other professionals (professionals i.e. , PA, CURING FINISHER, lab, RT, psych nurse, social security assessor, ager operator, teacher, medical officer, heel caser)? Give summary @ -[No] Was smoking cessation discussed for >3mins.? @ -[No] Was critical care preformed (if so, how long)? @ -[No] Were there social determinants of health that impacted care today? How? (Homelessness, low income, unemployed, alcoholism, drug addiction, cline sportation, low edu. Level, literacy, decrease access to med. care, alf, rehab)? @ -[No] Was there de-escalation of care discussed even if they declined (Discuss DNR or withdrawal of care, Hospice)? @ -[No] What co-morbidities impacted this encounter? (DM, HTN, Smoking, COPD, CAD, Cancer, CVA, ARF, Chemo, Hep., AIDS, mental health diagnosis, sleep apnea, morbid obesity)? @ -Parapelgia, neurogenic bladder, Was patient admitted / discharged? Hospital course, mention meds given and route, prescriptions, significant lab abnormalities, going to OR and other pertinent info. @ Admission- this is a pleasant 59-year-old gentleman with a past medical history of paraplegia, neurogenic bladder with condom catheter, presenting today for bladder spasms. Patient states that earlier this evening he began having painful spasms in his bladder without being able to urinate, the spasms seem to radiate down his legs and caused his legs to "straighten out". Patient typically has no sensation in his lower extremities so this is not necessarily new for him however patient is concerned due to the bladder spasms that they could be a sign of a UTI. Patient's last UTI was about a year ago and he states he has gotten very sick from them in the past. On my assessment patient is well-appearing, no acute distress, abdomen is soft and nontender, lower extremity chronic muscle contractures and weakness I discussed with the patient obtaining a bladder scan, straight cath urine sample basic labs. Patient agreeable plan of care. Will also do Flomax. Of note patient would like to do everything possible to avoid a Goodman catheter. He states that he changed his current catheter bag just prior to arrival so the urine should be clean. We will obtain a urine stable from this and due to patient's request refrain from straight catheter Goodman catheter at this time. Urinalysis shows signs for infection. Mild leukocytosis on CBC with white blood cell count 14. Cefepime ordered. Updated pt to findings. Pt states he feels his bladder spasms have improved s/p flomax and he feels his bladder is emptying more easily. I did discuss with the patient discharge home with oral antibiotics versus admission for observation and patient is concerned that he will become sicker if sent home with only oral antibiotics. Due to patient's high risk of urosepsis we will admit for observation for complicated UTI. Patient agreeable plan of care. Case discussed with CHIOMA Frances with [facility], kindly accepts pt for admisson. Undiagnosed new problem with uncertain prognosis? @ -[No] Drug Therapy requiring intensive monitoring for toxicity (Heparin, Nitro, Insulin, Cardizem)? @ -[No] Were any procedures done? @ -[No] Diagnosis/symptom? @ -complicated UTI Acute, or Chronic, or Acute on Chronic? @acute Uncomplicated (without systemic symptoms) or Complicated (systemic symptoms)? @complicated Side effects of treatment? @ -[No] Exacerbation, Progression, or Severe Exacerbation? @ -[No] Poses a threat to life or bodily function? How? (Chest pain, [place], [place], pneumonia, PE, COPD, DKA, ARF, appy, cholecystitis, CVA, Diverticulitis, Homicidal, Suicidal, threat to staff... and all critical care pts) @ -[No] - Lab Data Result diagrams: 08/09/24 04:17 08/09/24 04:17 Lab Results 08/03/24 08/03/24 08/03/24 Range/Units 04:36 04:36 04:55 WBC 14.0 H (3.8-10.6) k/uL RBC 5.11 (4.30-5.90) m/uL Hgb 15.7 (13.0-17.5) gm/dL Hct 44.1 (39.0-53.0) % MCV 86.3 (80.0-100.0) fL MCH 30.7 (25.0-35.0) pg MCHC 35.5 (31.0-37.0) g/dL RDW 13.2 (11.5-15.5) % Plt Count 246 (150-450) k/uL MPV 6.4 Neutrophils % 72 % Lymphocytes % 19 % Monocytes % 5 % Eosinophils % 3 % Basophils % 1 % Neutrophils # 10.1 H (1.3-7.7) k/uL Lymphocytes # 2.7 (1.0-4.8) k/uL Monocytes # 0.6 (0-1.0) k/uL Eosinophils # 0.4 (0-0.7) k/uL Basophils # 0.1 (0-0.2) k/uL Sodium 139 (137-145) mmol/L Potassium 3.9 (3.5-5.1) mmol/L Chloride 99 (98-107) mmol/L Carbon Dioxide 33 H (22-30) mmol/L Anion Gap 7 mmol/L BUN 14 (9-20) mg/dL Creatinine 0.77 (0.66-1.25) mg/dL Est GFR (CKD-EPI)AfAm >90 (>60 ml/min/1.73 sqM) Est GFR (CKD-EPI)NonAf >90 (>60 ml/min/1.73 sqM) Glucose 197 H (74-99) mg/dL Calcium 9.3 (8.4-10.2) mg/dL Total Bilirubin 1.7 H (0.2-1.3) mg/dL AST 25 (17-59) U/L ALT 24 (4-49) U/L Alkaline Phosphatase 117 (38-126) U/L Total Protein 7.1 (6.3-8.2) g/dL Albumin 4.1 (3.5-5.0) g/dL Urine Color Light Yellow Urine Appearance Turbid (Clear) Urine pH 5.5 (5.0-8.0) Ur Specific [place] 1.014 (1.001-1.035) Urine Protein Trace H (Negative) Urine Glucose (UA) 3+ H (Negative) Urine Ketones Negative (Negative) Urine Blood Small H (Negative) Urine Nitrite Negative (Negative) Urine Bilirubin Negative (Negative) Urine Urobilinogen <2.0 (<2.0) mg/dL Ur Leukocyte Esterase Large H (Negative) Urine RBC 4 (0-5) /hpf Urine WBC >182 H (0-5) /hpf Urine WBC Clumps Many H (None) /hpf Ur Squamous Epith Cells 1 (0-4) /hpf Urine Bacteria Many H (None) /hpf Urine Mucus Rare H (None) /hpf Urine Yeast (Budding) Rare H (None) /hpf Disposition Clinical Impression: Complicated UTI (urinary tract infection), Bladder spasms Disposition: ADMITTED IP TO THIS HOSP Condition: Stable
[2024-08-03] MEDS: ONDANSETRON 4 MG/2 ML VIAL IVP STA (04:42)
[2024-08-03] MEDS: TAMSULOSIN 0.4 MG CAP.ER.24H PO STA (04:42)
[2024-08-03] MEDS: MORPHINE SULFATE 4 MG/ML SYRINGE IVP STA ×2 (04:47→04:49)
[2024-08-03 04:54] LABS: Basophils # (A) 0.1 k/uL (0-0.2); Basophils % (A) 1 %; Eosinophils # (A) 0.4 k/uL (0-0.7); Eosinophils % (A) 3 %; HCT 44.1 % (39.0-53.0); HGB 15.7 gm/dL (13.0-17.5); Lymphocytes # (A) 2.7 k/uL (1.0-4.8); Lymphocytes % (A) 19 %; MCH 30.7 pg (25.0-35.0); MCHC 35.5 g/dL (31.0-37.0); MCV 86.3 fL (80.0-100.0); Mean Platelet Volume 6.4; Monocytes # (A) 0.6 k/uL (0-1.0); Monocytes % (A) 5 %; Neutrophils # (A) 10.1 k/uL (1.3-7.7); Neutrophils % (A) 72 %; Platelet Count 246 k/uL (150-450); RBC 5.11 m/uL (4.30-5.90); RDW 13.2 % (11.5-15.5)
[2024-08-03 05:12] LABS: ALT 24 U/L (4-49); AST 25 U/L (17-59); African American GFR (CKD) >90 (>60 ml/min/1.73 sqM); Albumin 4.1 g/dL (3.5-5.0); Alkaline Phosphatase 117 U/L (38-126); Anion Gap 7 mmol/L; Blood Urea Nitrogen 14 mg/dL (9-20); Calcium 9.3 mg/dL (8.4-10.2); Carbon Dioxide 33 mmol/L (22-30); Chloride 99 mmol/L (98-107); Glucose 197 mg/dL (74-99); Non-African American GFR(CKD) >90 (>60 ml/min/1.73 sqM); Potassium 3.9 mmol/L (3.5-5.1); Sodium 139 mmol/L (137-145); Total Bilirubin 1.7 mg/dL (0.2-1.3); Total Protein 7.1 g/dL (6.3-8.2)
[2024-08-03 06:53] LABS: Appearance,Urine Turbid (Clear); Bacteria,Urine Many /hpf; Bilirubin,Urine Negative (Negative); Blood,Urine Small (Negative); Budding Yeast,Urine Rare /hpf; Color,Urine Light Yellow; Glucose,Urine (UA) 3+ (Negative); Ketones,Urine Negative (Negative); Leukocyte Esterase,Urine Large (Negative); Mucus,Urine Rare /hpf; Nitrite,Urine Negative (Negative); PH, Urine 5.5 (5.0-8.0); Protein,Urine Trace (Negative); RBC,Urine 4 /hpf (0-5); Specific Gravity,Urine 1.014 (1.001-1.035); Squamous Epithelial Cell,Urine 1 /hpf (0-4); Urobilinogen,Urine <2.0 mg/dL (<2.0); WBC,Urine >182 /hpf (0-5)
[2024-08-03] MEDS ORDERED: NALOXONE 0.4 MG/ML 1 ML VIAL IV PRN (07:31)
[2024-08-03] MEDS ORDERED: MAG HYDROX/AL HYDROX/SIMETH 30 ML CUP PO PRN (07:31)
[2024-08-03] MEDS ORDERED: CALCIUM CARBONATE 500 MG CHEWABLE PO PRN (07:31)
[2024-08-03] MEDS ORDERED: ACETAMINOPHEN TAB 325 MG TAB PO PRN (07:31)
[2024-08-03] MEDS ORDERED: ONDANSETRON 4 MG/2 ML VIAL IVP PRN (07:31)
[2024-08-03] MEDS: FAMOTIDINE 20 MG TAB PO SCH (08:14)
[2024-08-03] MEDS: ENOXAPARIN 40 MG/0.4 ML SYRINGE SQ SCH (08:14)
[2024-08-03] MEDS: CEFEPIME 2 GM in SODIUM CHLORIDE 0.9% 100 ML IVPB STA (08:17)
[2024-08-03] MEDS: MORPHINE SULFATE 4 MG/ML SYRINGE IV PRN (08:31)
[2024-08-03] MEDS: CEFEPIME 2 GM in SODIUM CHLORIDE 0.9% 100 ML IVPB SCH (15:28)
[2024-08-03] MEDS: LOSARTAN 50 MG TAB PO SCH (15:29)
[2024-08-03] MEDS: amLODIPine 10 MG TAB PO SCH (15:29)
[2024-08-03] MEDS: IBUPROFEN 600 MG TAB PO SCH (21:41)
[2024-08-03] MEDS: PSYLLIUM HUSK 100% 6 GM PACKET PO SCH (21:41)
--- NOTE | 2024-08-03 23:43 | P.CONS ---
History of Present Illness - Reason for Consult Consult date: 08/03/24 UTI? Requesting physician: Nadia Morales - Chief Complaint bladder spasm not feeling well x 1 day - History of Present Illness Patient is a 59-year-old male with a past medical history significant for T10 paraplegia from a work-related accident in 1993 patient mention he has been able to urinate by himself with some pressure without the need for any Goodman catheter however now presenting to the hospital concerning for bladder spasm which are usually indicator of his UTIs for the patient presented to hospital patient denies high-grade fever did have some chills denies any headache or URI symptoms no chest pain shortness of breath or cough also complaining of generalized not feeling well and weakness which are usually associated with his symptoms of UTI on presentation to the hospital he was afebrile no fever has been recorded subsequently patient was not tachycardic hypotensive or hypoxic patient did have elevated white count of 14,000 creatinine has been normal urine has been positive patient was started on cefepime infectious disease was consulted for further management of antibiotic therapy Review of Systems Positive point and negatives has been mentioned in the HPI, complete review of systems was performed and all other systems are negative Past Medical History Past Medical History: Hypertension, Osteoarthritis (OA) Additional Past Medical History / Comment(s): Paraplegic - construction accident 1983, covid - antibody infusion History of Any Multi-Drug Resistant Organisms: None Reported Past Surgical History: Back Surgery, Cholecystectomy, Orthopedic Surgery Additional Past Surgical History / Comment(s): cayla shoulder surgury, COLONOSCOPY, charlotte removal Past Anesthesia/Blood Transfusion Reactions: No Reported Reaction Additional Past Anesthesia/Blood Transfusion Reaction / Comm: 1983 blood transfusion-no reaction Past Psychological History: Panic Disorder Smoking Status: Never smoker Past Alcohol Use History: Occasional, Rare Past Drug Use History: Marijuana - Past Family History Father Family Medical History: Diabetes Mellitus, Hypertension Mother Family Medical History: Hypertension Additional Family Medical History / Comment(s): Rheumatoid Medications and Allergies Home Medications Medication Instructions Recorded Confirmed Type Furosemide [Lasix] 20 mg PO DAILY 08/03/24 08/03/24 History Furosemide [Lasix] 20 mg PO DAILY PRN 08/03/24 08/03/24 History Ibuprofen [Motrin Ib] 600 mg PO BID 08/03/24 08/03/24 History Metoprolol Succinate (ER) [Toprol 100 mg PO DAILY 08/03/24 08/03/24 History Xl] Psyllium Husk 100% [Metamucil 6 gm PO BID 08/03/24 08/03/24 History Packet] amLODIPine BES/OLMESARTAN MED 1 tab PO DAILY 08/03/24 08/03/24 History [amLODIPine BES/OLMESARTAN MED 10-40 mg] sitaGLIPtin [Januvia] 100 mg PO DAILY 08/03/24 08/03/24 History Allergies Allergy/AdvReac Type Severity Reaction Status Date / Time ciprofloxacin [From Cipro] Allergy Rash/Hives Verified 08/03/24 09:24 Physical Exam Vitals: Vital Signs Temp Pulse Resp BP Pulse Ox 08/03/24 10:10 49 L 16 130/66 97 08/03/24 09:18 61 14 145/79 98 08/03/24 08:09 98.4 F 70 18 158/75 97 08/03/24 06:00 54 L 17 151/76 98 08/03/24 03:12 98.6 F 67 17 172/87 98 Intake and Output 08/02/24 08/03/24 08/03/24 22:59 06:59 14:59 Output Total 400 Balance -400 Output: Urine 400 Male - External 400 Other: Weight 108.862 kg GENERAL DESCRIPTION: Middle-aged male lying in bed, no distress. No tachypnea or accessory muscle of respiration use. HEENT: Shows Pallor , no scleral icterus. Oral mucous membrane is dry. No pharyngeal erythema or thrush NECK: Trachea central, no thyromegaly. LUNGS: Unlabored breathing. Clear to auscultation anteriorly. No wheeze or crackle. HEART: S1, S2, regular rate and rhythm. No loud murmur ABDOMEN: Soft, no tenderness , guarding or rigidity, no organomegaly EXTREMITIES: No edema of feet. SKIN: No rash, no masses palpable. NEUROLOGICAL: The patient is awake, alert, oriented x3, mood and affect normal. Results CBC & Chem 7: 08/03/24 04:36 08/03/24 04:36 Labs: Abnormal Lab Results - Last 24 Hours (Table) 08/03/24 08/03/24 08/03/24 Range/Units 04:36 04:36 04:55 WBC 14.0 H (3.8-10.6) k/uL Neutrophils # 10.1 H (1.3-7.7) k/uL Carbon Dioxide 33 H (22-30) mmol/L Glucose 197 H (74-99) mg/dL Total Bilirubin 1.7 H (0.2-1.3) mg/dL Urine Protein Trace H (Negative) Urine Glucose (UA) 3+ H (Negative) Urine Blood Small H (Negative) Ur Leukocyte Esterase Large H (Negative) Urine WBC >182 H (0-5) /hpf Urine WBC Clumps Many H (None) /hpf Urine Bacteria Many H (None) /hpf Urine Mucus Rare H (None) /hpf Urine Yeast (Budding) Rare H (None) /hpf Assessment and Plan (1) Complicated UTI (urinary tract infection) Current Visit: Yes Status: Acute Code(s): N39.0 - URINARY TRACT INFECTION, SITE NOT SPECIFIED SNOMED Code(s): 04695315 (2) Leukocytosis Current Visit: No Status: Acute Code(s): D72.829 - ELEVATED WHITE BLOOD CELL COUNT, UNSPECIFIED SNOMED Code(s): 770561289 Plan: 1patient presented hospital with weakness generalized not feeling well along with a bladder spasm which are usually associated with his symptoms of UTI in this patient with underlying paraplegia not requiring any Goodman catheter significantly positive UA elevated white count concerning for symptomatic UTI likely from enteric gram-negative pathogen 2-patient is currently being treated with cefepime while waiting for the culture to finalize Question concern answered We will follow on clinical condition and cultures to further adjust medication if needed Thank you for this consultation we will follow the patient along with you Dictation was produced using [employer] dictation software. please excuse any grammatical, word or spelling errors. Time with Patient: Greater than 30
--- NOTE | 2024-08-04 00:56 | HP ---
HISTORY AND PHYSICAL CHIEF COMPLAINT: Bladder spasms and UTI. HISTORY OF PRESENT ILLNESS: This 59-year-old gentleman with a past medical history of T10 injury and paraplegia, is complaining of bladder spasms and discomfort. The patient uses a condom catheter at home. The patient had a history of recurrent UTIs and the patient with multiple antibiotic allergies. Previous organisms include E. coli and Pseudomonas. There is no history of fever, rigors, chills. PAST MEDICAL HISTORY: Reviewed include T10 paraplegia, hypertension. Rest of history is in chart. HOME MEDICATIONS: Reviewed in July. Rest of the medications are reviewed. ALLERGIES: Cipro. FAMILY HISTORY: History of diabetes, history of hypertension, rheumatoid arthritis. SOCIAL HISTORY: Occasional alcohol and THC. REVIEW OF SYSTEMS: 14-point review is negative as mentioned. PHYSICAL EXAMINATION: VITAL SIGNS: Pulse is 70, blood pressure 158/70, respirations 18. HEENT: Conjunctivae normal. CARDIOVASCULAR: S1, S2. RESPIRATIONS: Few scattered rhonchi. ABDOMEN: Soft. LEGS: The patient is paraplegic. NERVOUS SYSTEM: Nonfocal. LABORATORY DATA: WBC 14. ASSESSMENT: 1. Acute urinary tract infection present on admission. 2. History of recurrent urinary tract infections and multiple antibiotic allergies. 3. Paraplegia, T10. 4. Degenerative joint disease. 5. Hypertension. RECOMMENDATIONS AND DISCUSSION: Recommend to continue current management. I would recommend broad-spectrum IV antibiotics and then the patient is started on cefepime. I would also obtain Infectious Disease evaluation, cultures, and narrow the antibiotic choice after the culture reports. Otherwise, prognosis maybe guarded because of multiple complex medical issues. See orders for details. MMODL / IJN: [id number] /
[2024-08-04 06:28] LABS: Basophils # (A) 0.1 k/uL (0-0.2); Basophils % (A) 1 %; Eosinophils # (A) 0.4 k/uL (0-0.7); Eosinophils % (A) 5 %; HCT 41.1 % (39.0-53.0); HGB 14.2 gm/dL (13.0-17.5); Lymphocytes # (A) 2.5 k/uL (1.0-4.8); Lymphocytes % (A) 26 %; MCH 29.6 pg (25.0-35.0); MCHC 34.6 g/dL (31.0-37.0); MCV 85.4 fL (80.0-100.0); Mean Platelet Volume 6.8; Monocytes # (A) 0.4 k/uL (0-1.0); Monocytes % (A) 4 %; Neutrophils # (A) 6.1 k/uL (1.3-7.7); Neutrophils % (A) 63 %; Platelet Count 230 k/uL (150-450); RBC 4.81 m/uL (4.30-5.90); RDW 13.5 % (11.5-15.5); WBC 9.7 k/uL (3.8-10.6)
[2024-08-04 06:50] LABS: African American GFR (CKD) >90 (>60 ml/min/1.73 sqM); Anion Gap 8 mmol/L; Blood Urea Nitrogen 9 mg/dL (9-20); Calcium 8.7 mg/dL (8.4-10.2); Carbon Dioxide 31 mmol/L (22-30); Chloride 99 mmol/L (98-107); Glucose 152 mg/dL (74-99); Non-African American GFR(CKD) >90 (>60 ml/min/1.73 sqM); Potassium 3.5 mmol/L (3.5-5.1); Sodium 138 mmol/L (137-145)
[2024-08-04] MEDS: METOPROLOL SUCCINATE (ER) 100 MG TAB.ER.24H PO SCH (09:59)
[2024-08-04] MEDS: PANTOPRAZOLE 40 MG TABLET PO SCH (09:59)
[2024-08-04] MEDS: LINAGLIPTIN 5 MG TABLET PO SCH (09:59)
[2024-08-04] MEDS: FUROSEMIDE 20 MG TAB PO SCH (10:00)
--- NOTE | 2024-08-04 11:47 | P.PN ---
Subjective Progress Note Date: 08/04/24 Principal diagnosis: Reason for follow-up is gram-negative urinary tract infection Patient is a 59-year-old male with a past medical history significant for T10 paraplegia from a work-related accident in 1993 presented to hospital with bladder spasm some chills positive UA elevated white count concerning for symptomatic UTI. On today's evaluation that is 08/04/2024,the patient denies any fever or any chills, patient is breathing comfortably on room air, the patient denies chest pain shortness of breath and no significant cough, patient denies abdominal pain, no nausea vomiting or diarrhea. Patient white count normalized to 9.7, creatinine 0.71 urine is growing gram- negative Objective - Vital Signs Vital signs: Vital Signs Temp 97.5 F L 08/04/24 07:00 Pulse 69 08/04/24 07:00 Resp 17 08/04/24 07:00 BP 172/91 08/04/24 07:00 Pulse Ox 98 08/04/24 07:00 FiO2 Intake & Output 08/03/24 08/04/24 08/04/24 18:59 06:59 18:59 Intake Total 118 Output Total 400 2000 Balance -400 -1882 Intake: Oral 118 Output: Urine 400 2000 Male - External 400 Other: Voiding Method External Catheter - Exam GENERAL DESCRIPTION: Middle-age male lying in bed in no distress RESPIRATORY SYSTEM: Unlabored breathing , decreased breath sounds at bases HEART: S1 S2 regular rate and rhythm , ABDOMEN: Soft , no tenderness EXTREMITIES: No edema feet - Labs CBC & Chem 7: 08/04/24 05:48 08/04/24 05:48 Labs: Abnormal Lab Results - Last 24 Hours (Table) 08/04/24 Range/Units 05:48 Carbon Dioxide 31 H (22-30) mmol/L Glucose 152 H (74-99) mg/dL Microbiology - Last 24 Hours (Table) 08/03/24 04:55 Urine Culture - Preliminary Urine,Voided Gram Neg Bacilli Assessment and Plan (1) Complicated UTI (urinary tract infection) Current Visit: Yes Status: Acute Code(s): N39.0 - URINARY TRACT INFECTION, SITE NOT SPECIFIED SNOMED Code(s): 02839942 (2) Leukocytosis Current Visit: No Status: Acute Code(s): D72.829 - ELEVATED WHITE BLOOD CELL COUNT, UNSPECIFIED SNOMED Code(s): 158981816 Plan: 1patient presented hospital with weakness generalized not feeling well along with a bladder spasm which are usually associated with his symptoms of UTI in this patient with underlying paraplegia not requiring any Goodman catheter significantly positive UA elevated white count concerning for symptomatic UTI likely from enteric gram-negative pathogen 2-patient leukocytosis likely related to UTI which has normalized 3urine is growing gram-negative with ID sensitivities pending continue Rocephin while waiting for the culture finalized Dictation was produced using [employer] dictation software. please excuse any grammatical, word or spelling errors. Time with Patient: Less than 30
[2024-08-04] MEDS: DOCUSATE 283 MG/5 ML ENEMA RECTAL PRN (13:11)
[2024-08-04] MEDS ORDERED: DOCUSATE 283 MG/5 ML ENEMA RECTAL PRN (15:01)
--- NOTE | 2024-08-04 15:31 | XR ---
EXAMINATION TYPE: XR abdomen 1V DATE OF EXAM: 08/04/2024 3:16 PM COMPARISON: 12/16/2012. CLINICAL INDICATION: Male, 59 years old with history of abdominal pain, spasms, constipation; H TECHNIQUE: One radiographic view of the abdomen was obtained. FINDINGS: The bowel gas pattern is nonspecific without dilated loops of small or large bowel. . Fecal material and gas are demonstrated throughout the colon and rectum. There is no evidence for organome mojgan or pneumoperitoneum. Degeneration changes of the spine. No acute osseous process. No abnormal calcifications are present. Degeneration changes of the hips with osteophyte reformation and joint sp kayla narrowing. Right upper quadrant cholecystectomy clips. IMPRESSION: 1. Nonspecific bowel gas pattern without radiographic evidence for acute process. 2. Severe degeneration changes of the hips. [facility], , 08/04/2024 3:28 PM
[2024-08-04] MEDS: NA PHOS,M-B/NA PHOS,DI-BA 133 ML ENEMA RECTAL STA (16:05)
--- NOTE | 2024-08-04 23:14 | PN ---
PROGRESS NOTE DATE OF SERVICE: 08/04/2024 SUBJECTIVE: This is a 59-year-old gentleman admitted with recurrent UTI, had multiple antibiotic allergies. The patient is started on IV Maxipime. Cultures are pending. OBJECTIVE: VITAL SIGNS: Pulse is 65, blood pressure 148/80, respirations 17. CHEST: Clear to auscultation. CARDIOVASCULAR: S1, S2. ABDOMEN: Soft. NERVOUS SYSTEM: Paraplegia. LABORATORY DATA: Noted. ASSESSMENT: 1. Acute complicated urinary tract infection, present on admission. 2. History of recurrent urinary tract infection and as well as multiple antibiotic allergies. 3. Paraplegia T10. 4. Degenerative joint disease. 5. Hypertension. RECOMMENDATIONS AND DISCUSSION: I recommend to continue current management and continue symptomatic treatment. Continue with IV antibiotics. Follow the cultures. Urine is growing gram-negative bacilli. Recommend repeat labs in the morning and continue to monitor. Further recommendations to follow. MMODL / IJN: [id number] /
[2024-08-05 03:38] LABS: Basophils # (A) 0.1 k/uL (0-0.2); Basophils % (A) 0 %; Eosinophils # (A) 0.5 k/uL (0-0.7); Eosinophils % (A) 3 %; HCT 41.5 % (39.0-53.0); HGB 14.6 gm/dL (13.0-17.5); Lymphocytes % (A) 14 %; MCHC 35.1 g/dL (31.0-37.0); MCV 85.6 fL (80.0-100.0); Mean Platelet Volume 6.9; Monocytes # (A) 0.6 k/uL (0-1.0); Monocytes % (A) 4 %; Neutrophils % (A) 78 %; Platelet Count 230 k/uL (150-450); RBC 4.85 m/uL (4.30-5.90); RDW 13.7 % (11.5-15.5); WBC 14.2 k/uL (3.8-10.6)
[2024-08-05 04:06] LABS: African American GFR (CKD) >90 (>60 ml/min/1.73 sqM); Anion Gap 8 mmol/L; Blood Urea Nitrogen 10 mg/dL (9-20); Calcium 8.8 mg/dL (8.4-10.2); Carbon Dioxide 29 mmol/L (22-30); Chloride 100 mmol/L (98-107); Glucose 157 mg/dL (74-99); Non-African American GFR(CKD) >90 (>60 ml/min/1.73 sqM); Potassium 4.1 mmol/L (3.5-5.1); Sodium 137 mmol/L (137-145)
[2024-08-05] MEDS ORDERED: IOPAMIDOL CONTRAST (ORAL USE) VIAL PO PRN (12:44)
--- NOTE | 2024-08-05 12:44 | P.PN ---
Subjective Progress Note Date: 08/05/24 Principal diagnosis: Reason for follow-up is gram-negative urinary tract infection Patient is a 59-year-old male with a past medical history significant for T10 paraplegia from a work-related accident in 1993 presented to hospital with bladder spasm some chills positive UA elevated white count concerning for symptomatic UTI. On today's evaluation that is 08/05/2024,the patient remains to be afebrile, patient is on room air not requiring supplemental oxygen and denies any shortness of breath no chest pain or cough.Patient denies having any nausea or vomiting, no abdominal pain and no diarrhea, patient been complaining of mostly pelvic pain did have difficulty with a straight cath ended up with the Goodman catheter placement. The patient urine is growing gram-negative blood cultures currently pending white count is up to 14.2, creatinine 0.82 abdominal x-ray with nonspecific bowel gas pattern Objective - Vital Signs Vital signs: Vital Signs Temp 98.6 F 08/05/24 06:55 Pulse 66 08/05/24 06:55 Resp 18 08/05/24 06:55 BP 172/88 08/05/24 06:55 Pulse Ox 97 08/05/24 06:55 FiO2 Intake & Output 08/04/24 08/05/24 08/05/24 18:59 06:59 18:59 Intake Total 118 2470 Output Total 3000 2550 300 Balance -2882 -80 -300 Weight 108.862 kg Intake: Oral 118 2470 Output: Urine 3000 2000 300 Male - External 500 750 Uretheral (Goodman) 300 Other 550 Other: Voiding Method External Catheter External Catheter # Bowel Movements 0 1 - Exam GENERAL DESCRIPTION: Middle-age male lying in bed in no distress RESPIRATORY SYSTEM: Unlabored breathing , decreased breath sounds at bases HEART: S1 S2 regular rate and rhythm , ABDOMEN: Soft , no tenderness EXTREMITIES: No edema feet - Labs CBC & Chem 7: 08/05/24 03:13 08/05/24 03:13 Labs: Abnormal Lab Results - Last 24 Hours (Table) 08/05/24 08/05/24 Range/Units 03:13 03:13 WBC 14.2 H (3.8-10.6) k/uL Neutrophils # 11.0 H (1.3-7.7) k/uL Glucose 157 H (74-99) mg/dL Microbiology - Last 24 Hours (Table) 08/03/24 08:15 Blood Culture - Preliminary Blood 08/03/24 08:00 Blood Culture - Preliminary Blood 08/03/24 04:55 Urine Culture - Preliminary Urine,Voided Gram Neg Bacilli Assessment and Plan (1) Complicated UTI (urinary tract infection) Current Visit: Yes Status: Acute Code(s): N39.0 - URINARY TRACT INFECTION, SITE NOT SPECIFIED SNOMED Code(s): 43647371 (2) Leukocytosis Current Visit: No Status: Acute Code(s): D72.829 - ELEVATED WHITE BLOOD CELL COUNT, UNSPECIFIED SNOMED Code(s): 064053626 Plan: 1patient presented hospital with weakness generalized not feeling well along with a bladder spasm which are usually associated with his symptoms of UTI in this patient with underlying paraplegia not requiring any Goodman catheter significantly positive UA elevated white count concerning for symptomatic UTI likely from enteric gram-negative pathogen 2-patient leukocytosis likely related to UTI which has normalized initially however slightly up today 3urine is growing gram-negative with ID sensitivities pending 4-patient complaining of deep pelvic pain question of possible prostatitis with difficult session of the Goodman catheter will obtain a CT abdominal pelvis to be sure evidence of any structural abnormality 5-patient is currently being treated with cefepime to continue while waiting for the culture to finalize Dictation was produced using [employer] dictation software. please excuse any grammatical, word or spelling errors. Time with Patient: Less than 30
[2024-08-05] MEDS: HYDROcodone/APAP 5-325MG 1 EACH TAB PO PRN (14:27)
[2024-08-05] MEDS: HYDROmorphone 0.5 MG/0.5 ML SYRINGE IVP PRN (15:35)
[2024-08-05] MEDS: hydrALAZINE HCL 50 MG TAB PO SCH (15:36)
[2024-08-05] MEDS: TAMSULOSIN 0.4 MG CAP.ER.24H PO SCH (15:36)
--- NOTE | 2024-08-05 21:59 | PN ---
PROGRESS NOTE DATE OF SERVICE: 08/05/2024 SUBJECTIVE: This is a 59-year-old gentleman, admitted with complicated UTI, complaining of pain in the lower part of the abdomen and pelvis also. The patient also had a Goodman catheter inserted because of urinary retention. I recommended Flomax. I also recommended CT scan of the abdomen pelvis to rule out the possibility of any prostatic infection or abscess at this time. Urine culture is showing gram-negative bacilli. The patient is on empiric antibiotics. The patient has multiple antibiotic allergies. PAST MEDICAL HISTORY: Reviewed. REVIEW OF SYSTEMS: Fourteen-point review of systems negative except as mentioned earlier. CURRENT MEDICATIONS: Reviewed. PHYSICAL EXAMINATION: VITAL SIGNS: Pulse is 66, blood pressure 170/82, respirations 18. CHEST: A few scattered rhonchi and crackles. ABDOMEN: Soft. NERVOUS SYSTEM: Nonfocal. LABORATORY DATA: Noted. ASSESSMENT: 1. Acute complicated urinary tract infection, present on admission. 2. Severe pelvic pain, rule out prostatitis or prostatic abscess. 3. History of recurrent urinary tract infection as well as multiple antibiotic allergies. 4. Urinary retention, on Goodman catheter. 5. Paraplegia, T10. 6. Degenerative joint disease. 7. Hypertension. RECOMMENDATIONS AND DISCUSSION: Recommend to continue the current antibiotics. Await the final ID of the organism. CT scan of the abdomen and pelvis. Symptomatic treatment. Flomax. Goodman catheter. Prognosis extremely guarded because of multiple complex medical issues. I would recommend to add hydralazine to the current regimen. MMODL / IJN: [id number] /
[2024-08-06 08:32] LABS: BUN/Creat Ratio 13.22 Ratio (12.00-20.00); Blood Urea Nitrogen 11.9 mg/dL (9.0-27.0); Calcium 8.8 mg/dL (8.7-10.3); Carbon Dioxide 26.7 mmol/L (21.6-31.8); Chloride 102 mmol/L (96-109); Glucose 133 mg/dL (70-110); Potassium 3.7 mmol/L (3.5-5.5); Sodium 139 mmol/L (135-145)
[2024-08-06 08:36] LABS: Basophils # (A) 0.06 X 10*3/uL (0.00-0.10); Basophils % (A) 0.5 %; Eosinophils # (A) 0.61 X 10*3/uL (0.04-0.35); HCT 43.6 % (39.6-50.0); Lymphocytes # (A) 2.89 X 10*3/uL (0.90-5.00); Lymphocytes % (A) 23.7 %; MCH 29.4 pg (27.0-32.0); MCHC 34.4 g/dL (32.0-37.0); MCV 85.3 FL (80.0-97.0); Mean Platelet Volume 9.6 FL (9.5-12.2); Monocytes # (A) 0.95 X 10*3/uL (0.20-1.00); Monocytes % (A) 7.8 %; NRBC Per 100 WBC 0 X 10*3/uL (0.00-0.01); Neutrophils # (A) 7.61 X 10*3/uL (1.80-7.70); Neutrophils % (A) 62.6 %; Platelet Count 240 X 10*3/uL (140-440); RBC 5.11 X 10*6/uL (4.40-5.60); RDW 13.2 % (11.5-14.5); WBC 12.17 X 10*3/uL (4.50-10.00)
--- NOTE | 2024-08-06 10:35 | CT ---
EXAMINATION TYPE: CT abdomen pelvis w con DATE OF EXAM: 08/05/2024 3:54 PM COMPARISON: None. CLINICAL INDICATION: Male, 59 years old with history of Lower abdominal and deep pelvic pain, fever, LOWER ABDOMINAL AND DEEP PELVIC PAIN, FEVER TECHNIQUE: Axial images were obtained from above the diaphragm to the pubic rami in the axial plane a t 5 mm thick sections. Reconstructed images are reviewed on the computer in the coronal plane. CONTRAST: 100 mL of Isovue 300. Study performed with Oral Contrast DLP: 1695 mGycm, Automated exposure control for dose reduction was used. FINDINGS: Limited CT sections are obtained the lung bases. The lung bases are clear. CT ABDOMEN: Liver: Normal Spleen: Normal Pancreas: Normal Adrenal glands: The adrenal glands are normal. Gallbladder: Surgically absent Kidneys: No masses are evident. No hydronephrosis is present. No cysts are present. Delayed images were obtained through the kidneys, which remain unremarkable. Aorta: Vascular calcification is within the aorta. Inferior vena cava: Normal. CT PELVIS: There is minimal inflammatory change within the mesenteric fat adjacent to the distal sigmoid colon. No diverticuli are evident. Consider a mild colitis. Example image series 3 image 76. Fecal debris is within the colon. No suspicious dilated loops of bowel are evident. There are loops of bowel which a re incompletely distended or lack oral contrast limiting their evaluation. Appendix: Normal as visualized. Urinary bladder: Decompressed with Goodman catheter. Wall thickening likely related to nondistention . Genitourinary structures: Prostate contains calcification. Osseous structures: No suspicious lytic or sclerotic lesions. Facet degenerative changes are present. IMPRESSION: 1. There is some mild inflammatory type change within the mid pelvic mesentery. This is somewhat cassy se to the distal sigmoid colon. Correlate for mild colitis. No acute diverticulitis evident. [facility], , 08/06/2024 10:33 AM
--- NOTE | 2024-08-06 15:29 | P.PN ---
Subjective Progress Note Date: 08/06/24 Principal diagnosis: Reason for follow-up is gram-negative urinary tract infection Patient is a 59-year-old male with a past medical history significant for T10 paraplegia from a work-related accident in 1993 presented to hospital with bladder spasm some chills positive UA elevated white count concerning for symptomatic UTI. On today's evaluation that is 08/06/2024, the patient continues to be afebrile, the patient is on room air and breathing comfortably, the Pt denies having any chest pain or cough, the patient denies having any abdominal pain no vomiting has developed diarrhea. Patient white count is 12.17, creatinine 0.9 urine culture did grew Klebsiella a nd Enterobacter blood culture has been negative Objective - Vital Signs Vital signs: Vital Signs Temp 97.6 F 08/06/24 07:31 Pulse 70 08/06/24 07:31 Resp 16 08/06/24 07:31 BP 154/75 08/06/24 07:31 Pulse Ox 99 08/06/24 07:31 FiO2 Intake & Output 08/05/24 08/06/24 08/06/24 18:59 06:59 18:59 Intake Total 690 Output Total 2600 1200 Balance -2600 -510 Intake: Intake, IV Titration 100 Amount Cefepime 2 gm In Sodium 100 Chloride 0.9% 100 ml @ 25 mls/hr IVPB Q8HR [facility] Rx# :[id number] Oral 590 Output: Urine 2600 1200 Uretheral (Goodman) 300 Other: Voiding Method Indwelling Catheter Indwelling Catheter # Bowel Movements 1 - Exam GENERAL DESCRIPTION: Middle-age male lying in bed in no distress RESPIRATORY SYSTEM: Unlabored breathing , decreased breath sounds at bases HEART: S1 S2 regular rate and rhythm , ABDOMEN: Soft , no tenderness EXTREMITIES: No edema feet - Labs CBC & Chem 7: 08/06/24 05:43 08/06/24 05:43 Labs: Abnormal Lab Results - Last 24 Hours (Table) 08/06/24 08/06/24 Range/Units 05:43 05:43 WBC 12.17 H (4.50-10.00) X 10*3/uL Immature Gran # 0.05 H (0.00-0.04) X 10*3/uL Eosinophils # 0.61 H (0.04-0.35) X 10*3/uL Glucose 133 H (70-110) mg/dL Microbiology - Last 24 Hours (Table) 08/03/24 04:55 Urine Culture - Final Urine,Voided Klebsiella oxytoca Enterobacter cloacae 08/03/24 08:15 Blood Culture - Preliminary Blood 08/03/24 08:00 Blood Culture - Preliminary Blood Assessment and Plan (1) Complicated UTI (urinary tract infection) Current Visit: Yes Status: Acute Code(s): N39.0 - URINARY TRACT INFECTION, SITE NOT SPECIFIED SNOMED Code(s): 19492541 (2) Leukocytosis Current Visit: No Status: Acute Code(s): D72.829 - ELEVATED WHITE BLOOD CELL COUNT, UNSPECIFIED SNOMED Code(s): 531098182 Plan: 1patient presented hospital with weakness generalized not feeling well along with a bladder spasm which are usually associated with his symptoms of UTI in this patient with underlying paraplegia not requiring any Goodman catheter significantly positive UA elevated white count concerning for symptomatic UTI likely from enteric gram-negative pathogen 2-patient leukocytosis likely related to UTI which has normalized initially however slightly up today 3urine is Enterobacter and Klebsiella that is sensitive to ceftriaxone 4-patient complaining of deep pelvic pain question of possible prostatitis did have a CT of abdominal pelvis there were concern for possible mild colitis did not mention any features of prostatitis or prostate abscess 5-patient antibiotic will be switched over to Rocephin 2 g daily keep in mind patient complaining of some diarrhea with evidence of colitis on the CT we will check a stool for C. difficile and stool culture Dictation was produced using [employer] dictation software. please excuse any grammatical, word or spelling errors. Time with Patient: Less than 30
--- NOTE | 2024-08-07 08:20 | P.PN ---
Subjective Progress Note Date: 08/06/24 This is a pleasant 59-year-old male who is recently admitted with complicated UTI having lower abdominal pain and pelvic pain also when sitting up experiences immense rectal pain and discomfort as if sitting on a rock. Patient is continued on antibiotics with infectious disease following and awaiting urine cultures to finalize. Culture showing Klebsiella and Enterobacter and does have history of neurogenic bladder. Patient was unable to urinate and required indwelling Goodman catheter. Will continue for now. Patient did undergo CT abdomen with concerns of possible mild colitis with diverticulitis ruled out. Patient is having multiple episodes of diarrhea which may be due to multiple antibiotics although will obtain a sample for possible C. difficile. If negative consider Imodium and Questran. Review of systems: Constitutional: No reports of fatigue, fever, or chills Cardiovascular: No reports of chest pain or palpitations Respiratory: No reports of shortness of breath or cough GI: reports of occasional nausea, no reports of vomiting, multiple episodes of diarrhea, lower abdominal pain : No reports of dysuria or retention Neurovascular: reports of generalized weakness All medications have been reviewed PHYSICAL EXAMINATION: GENERAL: The patient is alert and oriented x4, Well developed, well nourished. Obese HEENT: Pupils are round and equally reacting to light. EOMI. no scleral icterus. No conjunctival pallor. Normocephalic, atraumatic. No pharyngeal erythema. No thyromegaly. CARDIOVASCULAR: S1 and S2 muffled PULMONARY: diminished breath sounds bilaterally with no wheezing or rhonchi noted. ABDOMEN: soft. Nontender on exam. obese. non-distended, normoactive bowel sounds. No palpable organomegaly. MUSCULOSKELETAL: No joint swelling or deformity. EXTREMITIES: No cyanosis, clubbing, or pedal edema. NEUROLOGICAL: Gross neurological examination did not reveal any focal deficits. Has paraplegia, diffuse weakness SKIN: No rashes. Assessment: Acute complicated urinary tract infection, present on admission with history of neurogenic bladder Severe pelvic pain, rule out prostatitis or prostatic abscess Mild acute colitis with no evidence of diverticulitis noted on CT Urinary retention requiring indwelling Goodman catheter, possibly secondary to UTI Paraplegia history with a previous T10 injury Degenerative joint disease Obesity with a BMI of 30.8 Hypertension GI prophylaxis DVT prophylaxis Full code Plan: Recommend to continue with current medications and management with infectious disease following. Patient is continued on antibiotics and will continue with current regimen while awaiting finalized cultures, preliminary showing Klebsi beverley and Enterococcus Continue indwelling Goodman catheter for now and consider possible trial voiding in the next few days Patient having multiple episodes of diarrhea, C. difficile testing ordered and pending. If negative consider Imodium as needed as well as Questran Patient reporting significant pain and discomfort when attempting to sit up like he is sitting on a rock and CT images showing acute mild colitis. Also concerns for possible prostatitis and will continue with current antibiotics Will discuss with case management/social work regarding discharge planning once we have finalized cultures and discuss further with infectious disease Follow-up on repeat labs and replace electrolytes per protocol Due to multiple complex medical issues, overall prognosis is guarded The impression and plan of care has been dictated by Nadia Morales, nurse practitioner as directed. Dr. Melecio MD I have performed a history and examination and MDM of this patient, discussed the same with the dictator, and agree with the dictator's assessment and plan as written ,documented as a scribe. Based on total visit time, I have performed more than 50% of the visit. Any additional findings or plans will be noted. Objective - Vital Signs Vital signs: Vital Signs Temp 98.7 F 08/07/24 07:33 Pulse 75 08/07/24 07:33 Resp 20 08/07/24 07:33 BP 145/69 08/07/24 07:33 Pulse Ox 97 08/07/24 07:33 FiO2 Intake & Output 08/06/24 08/07/24 08/07/24 18:59 06:59 18:59 Intake Total 590 Output Total 500 300 Balance -500 290 Intake: Oral 590 Output: Urine 500 300 Other: Voiding Method Indwelling Catheter Indwelling Catheter # Bowel Movements 1 - Labs CBC & Chem 7: 08/06/24 05:43 08/06/24 05:43 Labs: Abnormal Lab Results - Last 24 Hours (Table) 08/06/24 08/06/24 Range/Units 05:43 05:43 WBC 12.17 H (4.50-10.00) X 10*3/uL Immature Gran # 0.05 H (0.00-0.04) X 10*3/uL Eosinophils # 0.61 H (0.04-0.35) X 10*3/uL Glucose 133 H (70-110) mg/dL Microbiology - Last 24 Hours (Table) 08/03/24 08:15 Blood Culture - Preliminary Blood 08/03/24 08:00 Blood Culture - Preliminary Blood 08/03/24 04:55 Urine Culture - Final Urine,Voided Klebsiella oxytoca Enterobacter cloacae
[2024-08-07 09:47] LABS: Basophils # (A) 0.07 X 10*3/uL (0.00-0.10); Basophils % (A) 0.7 %; Eosinophils # (A) 0.48 X 10*3/uL (0.04-0.35); Eosinophils % (A) 4.5 %; HCT 40.3 % (39.6-50.0); Lymphocytes # (A) 2.42 X 10*3/uL (0.90-5.00); Lymphocytes % (A) 22.5 %; MCH 29.6 pg (27.0-32.0); MCHC 34.7 g/dL (32.0-37.0); MCV 85.2 FL (80.0-97.0); Mean Platelet Volume 9.6 FL (9.5-12.2); Monocytes # (A) 0.83 X 10*3/uL (0.20-1.00); Monocytes % (A) 7.7 %; NRBC Per 100 WBC 0 X 10*3/uL (0.00-0.01); Neutrophils % (A) 64.2 %; Platelet Count 252 X 10*3/uL (140-440); RBC 4.73 X 10*6/uL (4.40-5.60); RDW 13.6 % (11.5-14.5); WBC 10.74 X 10*3/uL (4.50-10.00)
[2024-08-07 10:20] LABS: ALT 20 U/L (10-49); AST 26 U/L (14-35); Albumin 3.7 g/dL (3.8-4.9); Albumin/Globulin Ratio 1.48 Ratio (1.60-3.17); Alkaline Phosphatase 111 U/L (41-126); BUN/Creat Ratio 17.18 Ratio (12.00-20.00); Blood Urea Nitrogen 18.9 mg/dL (9.0-27.0); Calcium 8.8 mg/dL (8.7-10.3); Carbon Dioxide 23.7 mmol/L (21.6-31.8); Chloride 103 mmol/L (96-109); Globulin 2.5 g/dL (1.6-3.3); Glucose 128 mg/dL (70-110); Potassium 3.3 mmol/L (3.5-5.5); Sodium 139 mmol/L (135-145); Total Bilirubin 0.9 mg/dL (0.3-1.2); Total Protein 6.2 g/dL (6.2-8.2)
[2024-08-07 10:21] LABS: Glucose,Whole Blood 146 mg/dL (70-110)
[2024-08-07] MEDS ORDERED: Potassium Replacement Protocol 1 EACH MISC MISCELLANE PRN (11:51)
[2024-08-07] MEDS: POTASSIUM CHLORIDE ER 20 MEQ TAB.ER PO SCH ×3 (12:13→21:40)
[2024-08-07 12:37] LABS: Glucose,Whole Blood 149 mg/dL (70-110)
--- NOTE | 2024-08-07 13:42 | P.PN ---
Subjective Progress Note Date: 08/07/24 Principal diagnosis: Reason for follow-up is gram-negative urinary tract infection Patient is a 59-year-old male with a past medical history significant for T10 paraplegia from a work-related accident in 1993 presented to hospital with bladder spasm some chills positive UA elevated white count concerning for symptomatic UTI. On today's evaluation that is 08/07/2024, patient did not have any fever and denies any chills, patient is breathing comfortably on room air, patient with no chest pain or cough patient did not have any abdominal pain nausea vomiting still complaining of some loose stools. Patient did have white count of 10.74, creatinine 1.1 blood culture have been negative Objective - Vital Signs Vital signs: Vital Signs Temp 98.7 F 08/07/24 07:33 Pulse 75 08/07/24 07:33 Resp 20 08/07/24 07:33 BP 145/69 08/07/24 07:33 Pulse Ox 97 08/07/24 07:33 FiO2 Intake & Output 08/06/24 08/07/24 08/07/24 18:59 06:59 18:59 Intake Total 590 Output Total 500 300 Balance -500 290 Intake: Oral 590 Output: Urine 500 300 Other: Voiding Method Indwelling Catheter Indwelling Catheter # Bowel Movements 1 - Exam GENERAL DESCRIPTION: Middle-age male lying in bed in no distress RESPIRATORY SYSTEM: Unlabored breathing , decreased breath sounds at bases HEART: S1 S2 regular rate and rhythm , ABDOMEN: Soft , no tenderness EXTREMITIES: No edema feet - Labs CBC & Chem 7: 08/07/24 04:36 08/07/24 04:36 Labs: Abnormal Lab Results - Last 24 Hours (Table) 08/07/24 08/07/24 08/07/24 Range/Units 04:36 04:36 10:19 WBC 10.74 H (4.50-10.00) X 10*3/uL Eosinophils # 0.48 H (0.04-0.35) X 10*3/uL Potassium 3.3 L (3.5-5.5) mmol/L Anion Gap 12.30 H (4.00-12.00) mmol/L Glucose 128 H (70-110) mg/dL POC Glucose (mg/dL) 146 H (70-110) mg/dL Albumin 3.7 L (3.8-4.9) g/dL Albumin/Globulin Ratio 1.48 L (1.60-3.17) Ratio 08/07/24 Range/Units 12:35 WBC (4.50-10.00) X 10*3/uL Eosinophils # (0.04-0.35) X 10*3/uL Potassium (3.5-5.5) mmol/L Anion Gap (4.00-12.00) mmol/L Glucose (70-110) mg/dL POC Glucose (mg/dL) 149 H (70-110) mg/dL Albumin (3.8-4.9) g/dL Albumin/Globulin Ratio (1.60-3.17) Ratio Microbiology - Last 24 Hours (Table) 08/03/24 08:15 Blood Culture - Preliminary Blood 08/03/24 08:00 Blood Culture - Preliminary Blood 08/03/24 04:55 Urine Culture - Final Urine,Voided Klebsiella oxytoca Enterobacter cloacae Assessment and Plan (1) Complicated UTI (urinary tract infection) Current Visit: Yes Status: Acute Code(s): N39.0 - URINARY TRACT INFECTION, SITE NOT SPECIFIED SNOMED Code(s): 75417838 (2) Leukocytosis Current Visit: No Status: Acute Code(s): D72.829 - ELEVATED WHITE BLOOD CELL COUNT, UNSPECIFIED SNOMED Code(s): 362460168 Plan: 1patient presented hospital with weakness generalized not feeling well along with a bladder spasm which are usually associated with his symptoms of UTI in this patient with underlying paraplegia not requiring any Goodman catheter significantly positive UA elevated white count concerning for symptomatic UTI likely from enteric gram-negative pathogen 2-patient leukocytosis likely related to UTI which has normalized initially however slightly up today 3urine is Enterobacter and Klebsiella that is sensitive to ceftriaxone 4-patient complaining of deep pelvic pain question of possible prostatitis did have a CT of abdominal pelvis there were concern for possible mild colitis did not mention any features of prostatitis or prostate abscess 5-patient currently being treated with Rocephin 2 g daily 6patient complaining of some diarrhea with evidence of colitis on the CT, we did ask for stool for C. difficile and stool culture which is pending completion Dictation was produced using [employer] software. please excuse any grammatical, word or spelling errors. Time with Patient: Less than 30
[2024-08-07 17:18] LABS: Glucose,Whole Blood 180 mg/dL (70-110)
--- NOTE | 2024-08-07 19:53 | P.CON ---
Consult Note - . Consult date: 08/07/24 Assessment/Plan:: Patient is a 59-year-old male with a past medical history significant for T10 paraplegia from a work-related accident in 1993 patient mention he has been able to urinate by himself with some pressure without the need for any Fo el[place] catheter however now presenting to the hospital concerning for bladder spasm which are usually indicator of his UTIs. He had a CT-AP which showed possible sigmoid colitis. Patient states he had a colonoscopy a couple years ago which was normal. Review of Systems Positive point and negatives has been mentioned in the HPI, complete review of systems was performed and all other systems are negative Past Medical History Past Medical History: Hypertension, Osteoarthritis (OA) Additional Past Medical History / Comment(s): Paraplegic - construction accident 1983, covid - antibody infusion History of Any Multi-Drug Resistant Organisms: None Reported Past Surgical History: Back Surgery, Cholecystectomy, Orthopedic Surgery Additional Past Surgical History / Comment(s): cayla shoulder surgury, COLONOSCOPY, [place] removal Past Anesthesia/Blood Transfusion Reactions: No Reported Reaction Additional Past Anesthesia/Blood Transfusion Reaction / Comm: 1984 blood transfusion-no reaction Past Psychological History: Panic Disorder Smoking Status: Never smoker Past Alcohol Use History: Occasional, Rare Past Drug Use History: Marijuana - Past Family History Father Family Medical History: Diabetes Mellitus, Hypertension Mother Family Medical History: Hypertension Additional Family Medical History / Comment(s): Rheumatoid Physical Exam GENERAL DESCRIPTION: Middle-aged male lying in bed, no distress. No tachypnea or accessory muscle of respiration use. HEENT: Shows Pallor , no scleral icterus. Oral mucous membrane is dry. No pharyngeal erythema or thrush NECK: Trachea central, no thyromegaly. LUNGS: Unlabored breathing. Clear to auscultation anteriorly. No wheeze or crackle. HEART: S1, S2, regular rate and rhythm. No loud murmur ABDOMEN: Soft, no tenderness , guarding or rigidity, no organomegaly EXTREMITIES: No edema of feet. SKIN: No rash, no masses palpable. NEUROLOGICAL: The patient is awake, alert, oriented x3, mood and affect normal. 59 year old with Sigmoid Colitis -Low fat Diet -Antibiotics per ID -Pain and Nausea Control -Patient will need colonoscopy in 4-6 weeks Davidzoe Agrawal [facility] [phone]
[2024-08-07 20:01] LABS: Glucose,Whole Blood 169 mg/dL (70-110)
[2024-08-08] MEDS: POTASSIUM CHLORIDE ER 20 MEQ TAB.ER PO SCH (01:25)
[2024-08-08 07:35] LABS: Glucose,Whole Blood 141 mg/dL (70-110)
--- NOTE | 2024-08-08 08:06 | PN ---
PROGRESS NOTE DATE OF SERVICE: 08/07/2024 SUBJECTIVE: This 59-year-old gentleman was admitted with a complicated UTI, has Klebsiella oxytoca, Enterobacter cloacae, which were rather relatively resistant, grown from the culture. The patient is also complaining of significant discomfort in the lower part of the abdomen. CAT scan showed multiple abnormalities. I am going to obtain a surgical evaluation. There is no history of fever, rigors, or chills at this time. PAST MEDICAL HISTORY: Reviewed. REVIEW OF SYSTEMS: Fourteen-point review of systems is negative except as mentioned earlier. CURRENT MEDICATIONS: Reviewed. PHYSICAL EXAMINATION: VITAL SIGNS: Pulse is 71, blood pressure 130/60, respirations 16. HEENT: Conjunctivae normal. CARDIOVASCULAR: S1, S2. RESPIRATION: Breath sounds diminished at the bases. Scattered rhonchi. ABDOMEN: Soft, mild diffuse discomfort. LEGS: No edema. No swelling. NERVOUS SYSTEM: Nonfocal. LABORATORY DATA: WBC 10.74. Rest of the labs are noted. ASSESSMENT: 1. Acute complicated urinary tract infection with neurogenic bladder and with Klebsiella oxytoca and Enterobacter cloacae rather relatively resistant. 2. Severe pelvic pain, rule out prostatitis or prostatic abscess. 3. Mild acute colitis with no evidence of diverticulitis noted in the CAT scan. 4. Urinary retention, requiring indwelling Goodman catheter. 5. History of paraplegia with previous T10 injury. 6. Degenerative joint disease. 7. Multiple complex medical issues. RECOMMENDATIONS: Recommended to continue current management and treatment. The white count is slightly elevated, I would recommend to continue the patient on Rocephin, which provides coverage for Klebsiella and Enterobacter. We will continue to monitor. Surgical consultation. Symptomatic treatment. Guarded prognosis because of multiple complex medical issues. Further recommendations to follow. The blood cultures are negative. MMODL / IJN: [id number] /
[2024-08-08] MEDS ORDERED: ZINC OXIDE PASTE (Z-GUARD) 1 APPLIC TOPICAL PRN (09:16)
--- NOTE | 2024-08-08 09:56 | P.PN ---
Progress Note - Text Progress Note Date: 08/08/24 No acute events overnight. Patient is not having pain. Tolerating diet. GENERAL DESCRIPTION: Middle-aged male lying in bed, no distress. No tachypnea or accessory muscle of respiration use. HEENT: Shows Pallor , no scleral icterus. Oral mucous membrane is dry. No pharyngeal erythema or thrush NECK: Trachea central, no thyromegaly. LUNGS: Unlabored breathing. Clear to auscultation anteriorly. No wheeze or crackle. HEART: S1, S2, regular rate and rhythm. No loud murmur ABDOMEN: Soft, no tenderness , guarding or rigidity, no organomegaly EXTREMITIES: No edema of feet. SKIN: No rash, no masses palpable. NEUROLOGICAL: The patient is awake, alert, oriented x3, mood and affect normal. 59 year old with Sigmoid Colitis -Low fat Diet -Antibiotics per ID -Pain and Nausea Control -Patient will need colonoscopy in 4-6 weeks David Agrawal [facility] [phone]
[2024-08-08 12:10] LABS: Glucose,Whole Blood 190 mg/dL (70-110)
--- NOTE | 2024-08-08 15:36 | P.PN ---
Subjective Progress Note Date: 08/08/24 Principal diagnosis: Reason for follow-up is gram-negative urinary tract infection Patient is a 59-year-old male with a past medical history significant for T10 paraplegia from a work-related accident in 1993 presented to hospital with bladder spasm some chills positive UA elevated white count concerning for symptomatic UTI. On today's evaluation that is 08/08/2024, Patient is afebrile patient is currently on room air and denies having any shortness of breath, the patient denies any chest pain or cough, the patient denies any nausea vomiting did not have any abdominal pain and no further diarrhea. No new lab has been repeated today urine with Klebsiella Enterobacter blood culture have been negative Objective - Vital Signs Vital signs: Vital Signs Temp 98.2 F 08/08/24 13:07 Pulse 72 08/08/24 13:07 Resp 20 08/08/24 13:07 BP 129/72 08/08/24 13:07 Pulse Ox 98 08/08/24 13:07 FiO2 Intake & Output 08/07/24 08/08/24 08/08/24 18:59 06:59 18:59 Intake Total 590 Output Total 850 300 550 Balance -850 290 -550 Intake: Oral 590 Output: Urine 850 300 550 Other: Voiding Method Indwelling Catheter Indwelling Catheter Indwelling Catheter - Exam GENERAL DESCRIPTION: Middle-age male lying in bed in no distress RESPIRATORY SYSTEM: Unlabored breathing , decreased breath sounds at bases HEART: S1 S2 regular rate and rhythm , ABDOMEN: Soft , no tenderness EXTREMITIES: No edema feet - Labs CBC & Chem 7: 08/07/24 04:36 08/08/24 00:30 Labs: Abnormal Lab Results - Last 24 Hours (Table) 08/07/24 08/07/24 08/08/24 Range/Units 17:16 20:00 07:33 POC Glucose (mg/dL) 180 H 169 H 141 H (70-110) mg/dL 08/08/24 Range/Units 12:09 POC Glucose (mg/dL) 190 H (70-110) mg/dL Microbiology - Last 24 Hours (Table) 08/03/24 08:15 Blood Culture - Final Blood 08/03/24 08:00 Blood Culture - Final Blood 08/06/24 12:42 Stool Culture - Preliminary Stool Assessment and Plan (1) Complicated UTI (urinary tract infection) Current Visit: Yes Status: Acute Code(s): N39.0 - URINARY TRACT INFECTION, SITE NOT SPECIFIED SNOMED Code(s): 61760868 (2) Leukocytosis Current Visit: No Status: Acute Code(s): D72.829 - ELEVATED WHITE BLOOD CELL COUNT, UNSPECIFIED SNOMED Code(s): 706984221 Plan: 1patient presented hospital with weakness generalized not feeling well along with a bladder spasm which are usually associated with his symptoms of UTI in this patient with underlying paraplegia not requiring any Goodman catheter significantly positive UA elevated white count concerning for symptomatic UTI likely from enteric gram-negative pathogen 2-patient leukocytosis likely related to UTI which has normalized initially however slightly up today 3urine is Enterobacter and Klebsiella that is sensitive to ceftriaxone 4-patient complaining of deep pelvic pain question of possible prostatitis did have a CT of abdominal pelvis there were concern for possible mild colitis did not mention any features of prostatitis or prostate abscess 5-patient currently being treated with Rocephin 2 g daily, will be transition to oral antibiotics on discharge Dictation was produced using [employer] dictation software. please excuse any grammatical, word or spelling errors. Time with Patient: Less than 30
[2024-08-08 17:16] LABS: Glucose,Whole Blood 138 mg/dL (70-110)
[2024-08-08 20:32] LABS: Glucose,Whole Blood 135 mg/dL (70-110)
[2024-08-09 07:22] LABS: Glucose,Whole Blood 141 mg/dL (70-110)
--- NOTE | 2024-08-09 07:39 | PN ---
PROGRESS NOTE DATE OF SERVICE: 08/08/2024 HISTORY OF PRESENT ILLNESS: A 59-year-old gentleman admitted with a complicated UTI, paraplegia, had klebsiella and enterobacter grown from the cultures. The patient also had significant discomfort in the lower abdomen and perineal area. Surgery has seen the patient and recommended to continue with antibiotics for sigmoid colitis. No chest pain or palpitations. No fever. PAST MEDICAL HISTORY: Reviewed. REVIEW OF SYSTEMS: Fourteen-point review of systems is negative except as mentioned earlier. CURRENT MEDICATIONS: Reviewed. PHYSICAL EXAMINATION: VITAL SIGNS: Pulse is 68, blood pressure n, respirations 14. CHEST: A few scattered rhonchi. ABDOMEN: Soft. NEUROLOGIC: Nonfocal. LABORATORY DATA: Reviewed. ASSESSMENT: 1. Acute complicated urinary tract infection with neurogenic bladder with Klebsiella oxytoca and Enterobacter cloacae, rather relatively resistant. 2. Acute sigmoid colitis. 3. Severe pelvic pain. 4. Urinary retention, requiring indwelling Goodman catheter. 5. History of paraplegia, T10 injury. 6. Degenerative joint disease. 7. Multiple complex medical issues. RECOMMENDATIONS: Recommend to continue current management and continue symptomatic treatment. Continue the antibiotics. Closely follow with Surgery and Infectious Disease. Repeat labs. Guarded prognosis. Further recommendations to follow. We will try to remove the Goodman catheter and perform straight cath on a p.r.n. basis and continue to monitor. The patient apparently had urinary problems and apparent stricture previously. Records not available. MMODL / IJN: [id number] / MTDD
[2024-08-09 09:20] LABS: Blood Urea Nitrogen 11.2 mg/dL (9.0-27.0); Calcium 8.8 mg/dL (8.7-10.3); Carbon Dioxide 25.4 mmol/L (21.6-31.8); Chloride 104 mmol/L (96-109); Glucose 127 mg/dL (70-110); Potassium 3.7 mmol/L (3.5-5.5); Sodium 140 mmol/L (135-145)
[2024-08-09 09:59] LABS: Basophils # (A) 0.07 X 10*3/uL (0.00-0.10); Basophils % (A) 0.8 %; Eosinophils % (A) 5.9 %; HCT 41.1 % (39.6-50.0); HGB 13.7 g/dL (13.0-17.0); Lymphocytes # (A) 2.53 X 10*3/uL (0.90-5.00); Lymphocytes % (A) 29.9 %; MCH 29.5 pg (27.0-32.0); MCHC 33.3 g/dL (32.0-37.0); MCV 88.4 FL (80.0-97.0); Mean Platelet Volume 9.8 FL (9.5-12.2); Monocytes # (A) 0.66 X 10*3/uL (0.20-1.00); Monocytes % (A) 7.8 %; NRBC Per 100 WBC 0 X 10*3/uL (0.00-0.01); Neutrophils # (A) 4.66 X 10*3/uL (1.80-7.70); Neutrophils % (A) 55.2 %; Platelet Count 284 X 10*3/uL (140-440); RBC 4.65 X 10*6/uL (4.40-5.60); RDW 13.8 % (11.5-14.5); WBC 8.45 X 10*3/uL (4.50-10.00)
[2024-08-09 12:16] LABS: Glucose,Whole Blood 160 mg/dL (70-110)
[2024-08-09 17:22] LABS: Glucose,Whole Blood 183 mg/dL (70-110)
--- NOTE | 2024-08-09 19:57 | P.PN ---
Subjective Progress Note Date: 08/09/24 Patient seen and examined at bedside. Doing well. States abdominal pain is improved but still feeling some pressure. Tolerating diet. Having bowel function. Objective - Vital Signs Vital signs: Vital Signs Temp 98.1 F 08/09/24 19:50 Pulse 69 08/09/24 19:50 Resp 14 08/09/24 19:50 BP 151/68 08/09/24 19:50 Pulse Ox 97 08/09/24 19:50 FiO2 Intake & Output 08/09/24 08/09/24 08/10/24 06:59 18:59 06:59 Intake Total 1740 Output Total 600 1527 Balance -600 213 Intake: Oral 1740 Output: Urine 600 850 Post Void Residual 677 Other: Voiding Method External Catheter External Catheter - Constitutional General appearance: Present: cooperative, no acute distress - Gastrointestinal Gastrointestinal Comment(s): Soft, nontender, nondistended, no rebound or guarding - Psychiatric Psychiatric: Present: A&O x's 3 - Labs CBC & Chem 7: 08/09/24 04:17 08/09/24 04:17 Labs: Abnormal Lab Results - Last 24 Hours (Table) 08/08/24 08/09/24 08/09/24 Range/Units 20:24 04:17 04:17 Eosinophils # 0.50 H (0.04-0.35) X 10*3/uL Glucose 127 H (70-110) mg/dL POC Glucose (mg/dL) 135 H (70-110) mg/dL 08/09/24 08/09/24 08/09/24 Range/Units 07:20 12:15 17:21 Eosinophils # (0.04-0.35) X 10*3/uL Glucose (70-110) mg/dL POC Glucose (mg/dL) 141 H 160 H 183 H (70-110) mg/dL Microbiology - Last 24 Hours (Table) 08/06/24 12:42 Stool Culture - Preliminary Stool Assessment and Plan Plan: 59-year-old male with concern for mild colitis. This appears to be improving. Patient tolerating diet. Continue antibiotics. No plan for acute surgical i ntervention at this time with continued improvement.
[2024-08-09 20:13] LABS: Glucose,Whole Blood 160 mg/dL (70-110)
--- NOTE | 2024-08-10 05:55 | P.PN ---
Subjective Progress Note Date: 08/09/24 This is a pleasant 59-year-old male who is recently admitted with complicated UTI having lower abdominal pain and pelvic pain also when sitting up experiences immense rectal pain and discomfort as if sitting on a rock. Patient is continued on antibiotics with infectious disease following and awaiting urine cultures to finalize. Culture showing Klebsiella and Enterobacter and does have history of neurogenic bladder. Patient was unable to urinate and required indwelling Goodman catheter. Will continue for now. Patient did undergo CT abdomen with concerns of possible mild colitis with diverticulitis ruled out. Patient is having multiple episodes of diarrhea which may be due to multiple antibiotics although will obtain a sample for possible C. difficile. If negative consider Imodium and Questran. 08/09/2024 Patient is being treated with antibiotics with infectious disease following along with general surgery with no plans of surgical intervention at this time recommending to continue with antibiotic therapy. Patient did have indwelling Goodman catheter removed and is voiding. Patient will continue oral Ceftin on discharge per infectious disease. Will monitor overnight and arrange for discharge planning in 24 hours as patient has to await his sister to pick him up. Patient is afebrile and denies chest pain or shortness of breath. Patient is tolerating diet with no reported nausea or vomiting. Review of systems: Constitutional: No reports of fatigue, fever, or chills Cardiovascular: No reports of chest pain or palpitations Respiratory: No reports of shortness of breath or cough GI: No further reports of nausea, no reports of vomiting, diarrhea improving : No reports of dysuria or retention Neurovascular: reports of generalized weakness All medications have been reviewed PHYSICAL EXAMINATION: GENERAL: The patient is alert and oriented x4, Well developed, well nourished. Obese HEENT: Pupils are round and equally reacting to light. EOMI. no scleral icterus. No conjunctival pallor. Normocephalic, atraumatic. No pharyngeal erythema. No thyromegaly. CARDIOVASCULAR: S1 and S2 muffled PULMONARY: diminished breath sounds bilaterally with no wheezing or rhonchi noted. ABDOMEN: soft. Nontender on exam. obese. non-distended, normoactive bowel sounds. No palpable organomegaly. MUSCULOSKELETAL: No joint swelling or deformity. EXTREMITIES: No cyanosis, clubbing, or pedal edema. NEUROLOGICAL: Gross neurological examination did not reveal any focal deficits. Has paraplegia, diffuse weakness SKIN: No rashes. Assessment: Acute complicated urinary tract infection, present on admission with history of neurogenic bladder culture showing Klebsiella oxytoca and Enterobacter Mild acute sigmoid colitis with no evidence of diverticulitis noted on CT Urinary retention requiring indwelling Goodman catheter, possibly secondary to UTI, improved and Goodman was removed at Paraplegia history with a previous T10 injury Degenerative joint disease Obesity with a BMI of 30.8 Hypertension GI prophylaxis DVT prophylaxis Full code Plan: Recommend to continue with current medications and management with infectious disease following. Patient is continued on antibiotics and will continue with current regimen as culture showing Klebsiella and Enterobacter. Will transition to Ceftin on discharge per ID recommendations General Surgery following and will follow-up with patient outpatient. No surgical interventions planned at this time recommend to continue with antibiotic therapy Plan is for patient to go home on discharge and has help in the home. Currently unable to get a ride and awaiting a sister to pick him up. Will discharge on 08/10/2024 Due to multiple complex medical issues, overall prognosis is guarded The impression and plan of care has been dictated by Nadia Morales, nurse practitioner as directed. Dr. Melecio MD I have performed a history and examination and MDM of this patient, discussed the same with the dictator, and agree with the dictator's assessment and plan as written ,documented as a scribe. Based on total visit time, I have performed more than 50% of the visit. Any additional findings or plans will be noted. Objective - Vital Signs Vital signs: Vital Signs Temp 97.8 F 08/09/24 07:16 Pulse 76 08/09/24 07:16 Resp 17 08/09/24 07:16 BP 164/68 08/09/24 07:16 Pulse Ox 96 08/09/24 07:16 FiO2 Intake & Output 08/08/24 08/09/24 08/09/24 18:59 06:59 18:59 Intake Total 660 Output Total 1000 600 333 Balance -1000 -600 327 Intake: Oral 660 Output: Urine 1000 600 Post Void Residual 333 Other: Voiding Method Indwelling Catheter External Catheter External Catheter # Bowel Movements 1 - Labs CBC & Chem 7: 08/09/24 04:17 08/09/24 04:17 Labs: Abnormal Lab Results - Last 24 Hours (Table) 08/08/24 08/08/24 08/08/24 Range/Units 12:09 17:15 20:24 Eosinophils # (0.04-0.35) X 10*3/uL Glucose (70-110) mg/dL POC Glucose (mg/dL) 190 H 138 H 135 H (70-110) mg/dL 08/09/24 08/09/24 08/09/24 Range/Units 04:17 04:17 07:20 Eosinophils # 0.50 H (0.04-0.35) X 10*3/uL Glucose 127 H (70-110) mg/dL POC Glucose (mg/dL) 141 H (70-110) mg/dL Microbiology - Last 24 Hours (Table) 08/06/24 12:42 Stool Culture - Preliminary Stool 08/03/24 08:15 Blood Culture - Final Blood 08/03/24 08:00 Blood Culture - Final Blood
[2024-08-10 07:22] LABS: Glucose,Whole Blood 123 mg/dL (70-110)
[2024-08-10 08:06] VITALS: RESP 17
--- NOTE | 2024-08-10 11:01 | P.DS ---
Providers Date of admission: 08/03/24 07:33 Expected date of discharge: 08/10/24 Attending physician: Rahat Zuleta MD Consults: 08/03/24 09:34 Consult Physician Urgent Consulting Provider: Alexei Anderson Consult Reason/Comments: uti? Do you want consulting provider notified?: Yes 08/03/24 14:20 Consult Physician Routine Consulting Provider: Alexei Anderson Consult Reason/Comments: uti Do you want consulting provider notified?: Yes 08/07/24 11:42 Consult Physician Routine Consulting Provider: David Agrawal Consult Reason/Comments: abd pain Do you want consulting provider notified?: Yes Primary care physician: Guicho Krause Hospital Course: Final diagnosis Acute complicated urinary tract infection, present on admission with history of neurogenic bladder culture showing Klebsiella oxytoca and Enterobacter Mild acute sigmoid colitis with no evidence of diverticulitis noted on CT Urinary retention requiring indwelling Goodman catheter, possibly secondary to UTI, improved and Goodman was removed Paraplegia history with a previous T10 injury Degenerative joint disease Obesity with a BMI of 30.8 Hypertension GI prophylaxis DVT prophylaxis Full code Discharge disposition Patient is being discharged in a stable condition with guarded prognosis to home. Patient will follow-up with Dr. Krause in the outpatient setting upon discharge. Patient is to continue with oral Ceftin twice daily for the next 1 week and recommend outpatient follow-up with general surgery as scheduled. Total time taken is greater than 35 minutes. Hospital course This is a 59 year-old male who was recently admitted with concerns of acute urinary tract infection, present on admission with significant history of neurogenic bladder due to previous T10 injury with paraplegia. Patient reports he wears condom catheter although was having issues with urinating and cultures did finalized showing Klebsiella oxytoca along with Enterobacter. Patient with some retention and abdominal pain near the rectal area underwent CT imaging which was noted to have acute sigmoid colitis with no evidence of diverticulitis. General surgery evaluated the patient recommending conservative management for now with antibiotic therapy and also outpatient follow-up to discuss colonoscopy. Patient showing improvement and Goodman catheter was removed and is voiding and will continue on oral Ceftin twice daily for the next 1 week. Patient has been cleared by consultations and has been instructed to follow-up with primary care provider this week. Appointment has been made and patient will also continue low-fat diet until follow-up with surgery. Currently no reports of chest pain, shortness of breath, or palpitations. Patient is afebrile. No reports of nausea or vomiting and patient is tolerating diet. Patient will be discharged home today. Guarded prognosis given significant comorbidities. Physical exam: Gen: This is a 59-year-old male who is awake, alert and oriented x 3, well- developed, elderly appearing, obese, paraplegic HEENT: Head is atraumatic, normocephalic. Pupils equal, round. Sclerae is anicteric. NECK: Supple. No JVD. No lymphadenopathy. No thyromegaly. LUNGS: Diminished breath sounds bilaterally otherwise clear to auscultation. No wheezes or rhonchi. No intercostal retractions. HEART: S1, S2 are muffled ABDOMEN: Soft. Obese bowel sounds are present. No masses. No tenderness. EXTREMITIES: No pedal edema. No calf tenderness. NEUROLOGICAL: Patient is awake, alert and oriented x3. Cranial nerves 2 through 12 are grossly intact. Paraplegic Please refer to medication reconciliation sheet for a list of medications. The impression and plan of care has been dictated by Nadia Morales, Nurse Practitioner as directed. Dr. Melecio MD I have performed a history and examination and MDM of this patient, discussed the same with the dictator, and agree with the dictator's assessment and plan as written ,documented as a scribe. Based on total visit time, I have performed more than 50% of the visit. Patient Condition at Discharge: Stable Plan - Discharge Summary Discharge Rx Participant: Yes New Discharge Prescriptions: New hydrALAZINE HCL [Apresoline] 50 mg PO TID #90 tab cefuroxime axetiL [Ceftin] 500 mg PO BID 7 Days #14 tab Famotidine [Pepcid] 20 mg PO BID #60 tab Tamsulosin [Flomax] 0.4 mg PO BID #60 cap Mag Hydrox/Al Hydrox/Simeth [Maalox] 15 ml PO Q6HR PRN ml PRN Reason: Indigestion Acetaminophen Tab [Tylenol] 650 mg PO Q6HR PRN tab PRN Reason: Mild Pain Or Fever > 100.5 Continue Furosemide [Lasix] 20 mg PO DAILY PRN PRN Reason: Edema sitaGLIPtin [Januvia] 100 mg PO DAILY Psyllium Husk 100% [Metamucil Packet] 6 gm PO BID amLODIPine BES/OLMESARTAN MED [amLODIPine BES/OLMESARTAN MED 10-40 mg] 1 tab PO DAILY Metoprolol Succinate (ER) [Toprol XL] 100 mg PO DAILY Ibuprofen [Motrin Ib] 600 mg PO BID Furosemide [Lasix] 20 mg PO DAILY Discharge Medication List Furosemide [Lasix] 20 mg PO DAILY 08/03/24 [History] Furosemide [Lasix] 20 mg PO DAILY PRN 08/03/24 [History] Ibuprofen [Motrin Ib] 600 mg PO BID 08/03/24 [History] Metoprolol Succinate (ER) [Toprol XL] 100 mg PO DAILY 08/03/24 [History] Psyllium Husk 100% [Metamucil Packet] 6 gm PO BID 08/03/24 [History] amLODIPine BES/OLMESARTAN MED [amLODIPine BES/OLMESARTAN MED 10-40 mg] 1 tab PO DAILY 08/03/24 [History] sitaGLIPtin [Januvia] 100 mg PO DAILY 08/03/24 [History] Acetaminophen Tab [Tylenol] 650 mg PO Q6HR PRN tab 08/09/24 [Rx] Famotidine [Pepcid] 20 mg PO BID #60 tab 08/09/24 [Rx] Mag Hydrox/Al Hydrox/Simeth [Maalox] 15 ml PO Q6HR PRN ml 08/09/24 [Rx] Tamsulosin [Flomax] 0.4 mg PO BID #60 cap 08/09/24 [Rx] cefuroxime axetiL [Ceftin] 500 mg PO BID 7 Days #14 tab 08/09/24 [Rx] hydrALAZINE HCL [Apresoline] 50 mg PO TID #90 tab 08/09/24 [Rx] Follow up Appointment(s)/Referral(s): Guicho Krause DO [Primary Care Provider] - 08/12/24 11:00 am David Agrawal DO [Medical Doctor] - 1 Week (please call the office to set up a follow up appointment to discuss scheduling a colonoscopy.) Patient Instructions/Handouts: Low Fat Diet (DC) Activity/Diet/Wound Care/Special Instructions: 1. Low fat diet 2. Outpatient colonoscopy in 4-6 weeks Continue antibiotics for 1 week Follow-up with primary care provider on discharge Follow-up with urology outpatient Discharge Disposition: HOME SELF-CARE
[2024-08-10 12:17] LABS: Glucose,Whole Blood 153 mg/dL (70-110)
[2024-08-10 13:13] VITALS: BP 152/63; PULSE 67; TEMP 97.9
--- NOTE | 2024-08-10 14:22 | P.PN ---
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 On today's evaluation that is 08/09/2024, patient has been afebrile, patient is breathing comfortably and is currently on room air, patient denies having any significant cough no chest pain, patient denies nausea vomiting or diarrhea and no abdominal pain. Patient did have white count 8.45, creatinine 0.8 Objective - Vital Signs Vital signs: Vital Signs Temp 97.8 F 08/09/24 07:16 Pulse 76 08/09/24 07:16 Resp 17 08/09/24 07:16 BP 164/68 08/09/24 07:16 Pulse Ox 96 08/09/24 07:16 FiO2 Intake & Output 08/08/24 08/09/24 08/09/24 18:59 06:59 18:59 Intake Total 660 Output Total 1000 600 333 Balance -1000 -600 327 Intake: Oral 660 Output: Urine 1000 600 Post Void Residual 333 Other: Voiding Method Indwelling Catheter External Catheter External Catheter # Bowel Movements 1 - Exam GENERAL DESCRIPTION: Middle-age male lying in bed in no distress RESPIRATORY SYSTEM: Unlabored breathing , decreased breath sounds at bases HEART: S1 S2 regular rate and rhythm , ABDOMEN: Soft , no tenderness EXTREMITIES: No edema feet - Labs CBC & Chem 7: 08/09/24 04:17 08/09/24 04:17 Labs: Abnormal Lab Results - Last 24 Hours (Table) 08/08/24 08/08/24 08/09/24 Range/Units 17:15 20:24 04:17 Eosinophils # 0.50 H (0.04-0.35) X 10*3/uL Glucose (70-110) mg/dL POC Glucose (mg/dL) 138 H 135 H (70-110) mg/dL 08/09/24 08/09/24 08/09/24 Range/Units 04:17 07:20 12:15 Eosinophils # (0.04-0.35) X 10*3/uL Glucose 127 H (70-110) mg/dL POC Glucose (mg/dL) 141 H 160 H (70-110) mg/dL Microbiology - Last 24 Hours (Table) 08/06/24 12:42 Stool Culture - Preliminary Stool 08/03/24 08:15 Blood Culture - Final Blood 08/03/24 08:00 Blood Culture - Final Blood Assessment and Plan (1) Complicated UTI (urinary tract infection) Status: Acute Code(s): N39.0 - URINARY TRACT INFECTION, SITE NOT SPECIFIED SNOMED Code(s): 55746686 (2) Leukocytosis Status: Acute Code(s): D72.829 - ELEVATED WHITE BLOOD CELL COUNT, UNSPECIFIED SNOMED Code(s): 863242237 Plan: 1patient presented hospital with weakness generalized not feeling well along with a bladder spasm which are usually associated with his symptoms of UTI in this patient with underlying paraplegia not requiring any Goodman catheter significantly positive UA elevated white count concerning for symptomatic UTI likely from enteric gram-negative pathogen 2-patient leukocytosis likely related to UTI which has normalized initially however slightly up today 3urine is Enterobacter and Klebsiella that is sensitive to ceftriaxone 4-patient complaining of deep pelvic pain question of possible prostatitis did have a CT of abdominal pelvis there were concern for possible mild colitis did not mention any features of prostatitis or prostate abscess 5-patient stable to have shown some swelling improvement will be treated with Rocephin 2 g daily, with a plan for oral antibiotics on discharge Dictation was produced using [employer] dictation software. please excuse any grammatical, word or spelling errors. Time with Patient: Less than 30
--- NOTE | 2024-08-10 14:23 | P.PN ---
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 On today's evaluation that is 08/10/2024, Patient is afebrile this morning patient denies having any chest pain shortness of breath or cough, the patient is currently on room air, patient denies any abdominal pain no diarrhea no nausea no vomiting No new lab has been obtained today blood culture have been negative stool culture negative Objective - Vital Signs Vital signs: Vital Signs Temp 97.7 F 08/10/24 07:16 Pulse 68 08/10/24 07:16 Resp 17 08/10/24 07:16 BP 150/65 08/10/24 07:16 Pulse Ox 97 08/10/24 07:16 FiO2 Intake & Output 08/09/24 08/10/24 08/10/24 18:59 06:59 18:59 Intake Total 1740 540 240 Output Total 1527 575 331 Balance 213 -35 -91 Intake: Oral 1740 540 240 Output: Urine 850 575 Post Void Residual 677 331 Other: Voiding Method External Catheter External Catheter - Exam GENERAL DESCRIPTION: Middle-age male lying in bed in no distress RESPIRATORY SYSTEM: Unlabored breathing , decreased breath sounds at bases HEART: S1 S2 regular rate and rhythm , ABDOMEN: Soft , no tenderness EXTREMITIES: No edema feet - Labs CBC & Chem 7: 08/09/24 04:17 08/09/24 04:17 Labs: Abnormal Lab Results - Last 24 Hours (Table) 08/09/24 08/09/24 08/09/24 Range/Units 12:15 17:21 20:11 POC Glucose (mg/dL) 160 H 183 H 160 H (70-110) mg/dL 08/10/24 Range/Units 07:20 POC Glucose (mg/dL) 123 H (70-110) mg/dL Microbiology - Last 24 Hours (Table) 08/06/24 12:42 Stool Culture - Final Stool Assessment and Plan (1) Complicated UTI (urinary tract infection) Status: Acute Code(s): N39.0 - URINARY TRACT INFECTION, SITE NOT SPECIFIED SNOMED Code(s): 78325341 (2) Leukocytosis Status: Acute Code(s): D72.829 - ELEVATED WHITE BLOOD CELL COUNT, UNSPECIFIED SNOMED Code(s): 559127638 Plan: 1patient presented hospital with weakness generalized not feeling well along with a bladder spasm which are usually associated with his symptoms of UTI in this patient with underlying paraplegia not requiring any Goodman catheter significantly positive UA elevated white count concerning for symptomatic UTI likely from enteric gram-negative pathogen 2-patient leukocytosis likely related to UTI which has normalized initially however slightly up today 3urine is Enterobacter and Klebsiella that is sensitive to ceftriaxone 4-patient has shown clinical improvement will finish therapy with a short course of oral Ceftin on discharge discussed with SENIOR INTERACTIVE DEVELOPER for admitting team Dictation was produced using [employer] dictation software. please excuse any grammatical, word or spelling errors. Time with Patient: Less than 30
--- NOTE | 2024-08-10 15:36 | P.PN ---
Subjective Progress Note Date: 08/10/24 SURGICAL PROGRESS NOTE CHIEF COMPLAINT: Colitis patient reports abdominal pain has resolved. He did have a bowel movement yesterday. He is tolerating regular diet. Afebrile. WBC 8.45 HISTORY OF PRESENT ILLNESS: PHYSICAL EXAM: VITAL SIGNS: Reviewed. GENERAL: Well-developed in no acute distress. ABDOMEN: Soft. Nondistended. Nontender. NEUROLOGIC: Alert and oriented. Cranial nerves II through XII grossly intact. ASSESSMENT: 1. Mild colitis PLAN: -Patient can be discharged from surgical standpoint -Continue oral antibiotics at discharge Physician Signals Collector/Analyst note has been reviewed by physician. Signing provider agrees with the documented findings, assessment, and plan of care. Attestation Patient seen and examined at bedside. Chief complaint abdominal pain that has resolved. Colitis appears to be improving. Tolerating diet and having bowel function. Surgically stable for discharge. Antonia Ojeda DO Objective - Vital Signs Vital signs: Vital Signs Temp 97.9 F 08/10/24 12:51 Pulse 67 08/10/24 12:51 Resp 17 08/10/24 12:51 BP 152/63 08/10/24 12:51 Pulse Ox 98 08/10/24 12:51 FiO2 Intake & Output 08/09/24 08/10/24 08/10/24 18:59 06:59 18:59 Intake Total 1740 540 240 Output Total 1527 575 331 Balance 213 -35 -91 Intake: Oral 1740 540 240 Output: Urine 850 575 Post Void Residual 677 331 Other: Voiding Method External Catheter External Catheter External Catheter - Labs CBC & Chem 7: 08/09/24 04:17 08/09/24 04:17 Labs: Abnormal Lab Results - Last 24 Hours (Table) 08/09/24 08/09/24 08/10/24 Range/Units 17:21 20:11 07:20 POC Glucose (mg/dL) 183 H 160 H 123 H (70-110) mg/dL 08/10/24 Range/Units 12:16 POC Glucose (mg/dL) 153 H (70-110) mg/dL Microbiology - Last 24 Hours (Table) 08/06/24 12:42 Stool Culture - Final Stool
== END 2024-08-10 13:38 | disposition home or self-care (01) | DRG 690 ==
LOC: EC 03:02 → 6NMEDSUR 07:32 → OBSVTOIN 07:33 → 1SOBS 18:41 → 5NMEDONC 08-05 14:12
PROVIDERS: ADMIT Internal Medicine; ATTEND Internal Medicine
DX: N39.0 Urinary tract infection, site not specified (principal); G82.20 Paraplegia, unspecified; B95.2 Enterococcus as the cause of diseases classified elsewhere; I10 Essential (primary) hypertension; Z68.30 Body mass index [BMI] 30.0-30.9, adult; N32.89 Other specified disorders of bladder; Z79.899 Other long term (current) drug therapy; Z79.84 Long term (current) use of oral hypoglycemic drugs; Z79.1 Long term (current) use of non-steroidal anti-inflammatories (NSAID); N31.9 Neuromuscular dysfunction of bladder, unspecified; Z88.1 Allergy status to other antibiotic agents; Z86.19 Personal history of other infectious and parasitic diseases; M19.90 Unspecified osteoarthritis, unspecified site; E66.9 Obesity, unspecified; B96.1 Klebsiella pneumoniae [K. pneumoniae] as the cause of diseases classified elsewhere; K52.9 Noninfective gastroenteritis and colitis, unspecified; Z87.440 Personal history of urinary (tract) infections; R33.8 Other retention of urine
CPT/HCPCS: 36415; 74018; 74177; 80048; 80053; 81001; 83735; 84132; 85025; 87040; 87045; 87046; 87077; 87086; 87186; 96365; 96366; 96367; 96375; 99285

== ENCOUNTER 2024-11-22 07:25 | Day surgery (SDC) | payer MEDICARE ==
[2024-11-19 08:44] VITALS: BMI 31.1
[2024-11-22 07:46] VITALS: TEMP 97.3
[2024-11-22] MEDS ORDERED: LIDOCAINE 1% (10MG/ML) FOR IV START INTRADERMA PRN (07:51)
[2024-11-22] MEDS ORDERED: LACTATED RINGERS 1,000 ML IV SCH (07:51)
[2024-11-22] MEDS: IV FLUID CONTINUATION 1,000 ML IV ONE (08:09)
[2024-11-22 08:19] LABS: Glucose,Whole Blood 142 mg/dL (70-110)
[2024-11-22] MEDS ORDERED: PROPOFOL 10 MG/ML 20 ML VIAL IV ONE (08:50)
[2024-11-22 09:11] VITALS: RESP 15
[2024-11-22 09:49] VITALS: BP 135/78; PULSE 81
--- NOTE | 2024-11-22 14:59 | P.OP ---
Date of Procedure: 11/22/24 Preoperative Diagnosis: Colitis Postoperative Diagnosis: Internal and External Hemorrhoids Procedure(s) Performed: Colonoscopy with Biopsy Anesthesia: CIPRIANO Surgeon: David Agrawal Pathology: other (Colon Biopsy) Condition: stable Disposition: PACU Description of Procedure: After informed consent was obtained, the patient was placed in the left lateral position and the patient was sedated. Monitoring was provided throughout the entire procedure. Digital rectal exam was performed revealing normal sphincter tone and internal and external hemorrhoids were noted. The colonoscope was inserted into rectum and advanced under direct visualization, without difficulty, to the cecum, where the cecal strap, appendiceal orifice, and the ileocecal valve were identified. The quality of the preparation was good. The colonoscope was then withdrawn while carefully examining the mucosa. The colonic mucosa appeared normal with normal vascularity and haustral markings. No masses, polyps, AVM/s or diverticula were seen. I did perform a colon wall biopsy because of the patient's history of colitis. The endoscope was removed and the procedure terminated. The patient tolerated the procedure well without complications.
== END 2024-11-22 10:00 | disposition home or self-care (01) ==
LOC: ORWHC2ENDO 07:25
PROVIDERS: ATTEND Surgery
DX: K64.4 Residual hemorrhoidal skin tags (principal); K64.8 Other hemorrhoids; K21.9 Gastro-esophageal reflux disease without esophagitis; I11.0 Hypertensive heart disease with heart failure; I50.9 Heart failure, unspecified; E11.9 Type 2 diabetes mellitus without complications; F41.0 Panic disorder [episodic paroxysmal anxiety]; N40.0 Benign prostatic hyperplasia without lower urinary tract symptoms; Z88.1 Allergy status to other antibiotic agents; Z79.84 Long term (current) use of oral hypoglycemic drugs; Z79.899 Other long term (current) drug therapy
CPT/HCPCS: 88305; 45380; J2704